=== PATIENT | female | born 1935 | race Caucasian/White ===

== ENCOUNTER 2017-03-02 09:06 | Inpatient (IN) | payer OTHER, MEDICARE ==
[2017-03-02] VITALS (7 sets, daily range): BP systolic 104–158; BP diastolic 53–104; PULSE 85–95; RESP 18–26; TEMP 97.6–97.8; O2SAT 77–97
[~2017-03-02] VITALS: Ht 165.1 cm; Wt 94.3 kg
[~2017-03-02 09:06] MED LIST: ALBU8I INH; ASPI1TAB7 PO; ATOR80TA41 PO; DUONI NEB; FERR324T4 PO; LISI20 PO; METF500 PO; METO25 PO; PROT40TA PO; TIOT18I INH; Z.0.OXYGENDME NC
[2017-03-02] MEDS ORDERED: RESP: ALBUTEROL 2.5 MG/IPRATROPIUM 0.5 MG NEB (SCH) ONE (09:14)
[2017-03-02] MEDS ORDERED: methylPREDNISolone SOD SUCC 125 MG/2 ML VIAL IVP ONE (09:15)
--- NOTE | 2017-03-02 09:26 | PD ---
HPI Chief Complaint: Respiratory Distress Time Seen by Provider: 09:14 Travel History International Travel<30 days: No Contact w/Intl Traveler<30days: No Traveled to known affect area: No History of Present Illness HPI 81-year-old female complains of shortness of breath. Patient states that the symptoms started yesterday. Patient has history of COPD on home O2. She denies any headache. Patient denies any chest pain. Patient denies abdominal pain. Patient denies any nausea vomiting diarrhea. Patient denies any fever chills. Patient denies any coughing congestion. Patient states that the shortness of breath started yesterday and got progressively worse since then. Patient states that she has a nebulizer machine and medication at home however however patient has not been using it recently. Patient has history of hypertension, diabetes, hyperlipidemia. Patient has history of CAD status post stents placement. Patient is on Eliquis and aspirin. PFSH Past Medical History Hx Anticoagulant Therapy: Yes (ELIQUIS) Arthritis: Yes Asthma: No Blood Disorders: No Heart Rhythm Problems: No Cancer: No Cardiac Catheterization: Yes Cardiovascular Problems: Yes High Cholesterol: No Chest Pain: Yes Congestive Heart Failure: No COPD: Yes Diabetes: Yes Endocrine: No Genitourinary: No Hypertension: Yes Immune Disorder: Yes (polymyalgia) Musculoskeletal: Yes (arthritis) Neurologic: No Psychiatric: No Reproductive: No Respiratory: Yes (COPD CONTINUOUS O2 ) Sleep Apnea: No Thyroid Disease: No ?: Not Menopausal: Yes : 4 Para: 4 Miscarriage: 0 : 0 Past Surgical History Abdominal Surgery: Yes (appendectomy, GB removal) AICD: No Appendectomy: Yes Arteriovenous Shunt: No Body Medical Devices: cardiac stent Cardiac Surgery: Yes (x1 stent) Ear Surgery: No Endocrine Surgery: No Eye Surgery: Yes (ana cataract removal) Genitourinary Surgery: No Gynecologic Surgery: No Insulin Pump: No Joint Replacement: No Oral Surgery: Yes (tonsillectomy) Pacemaker: No Thoracic Surgery: No Other Surgery: Yes Social History Alcohol Use: No Tobacco Use: No Substance Use: No Allergies-Medications (Allergen,Severity, Reaction): Coded Allergies: Penicillin (Verified Adverse Reaction, Intermediate, Rash, 01/15/16) Reported Meds & Prescriptions Reported Meds & Active Scripts Active Reported Spiriva Handihaler (Tiotropium Inh) 18 Mcg Cap 18 Mcg INH DAILY 1 capsule = 18 mcg Levemir Flextouch Pen Inj (Insulin Detemir) 300 unit/3 ML Pen 15 Units SQ HS Protonix (Pantoprazole Sodium) 40 Mg Tab 40 Mg PO DAILY Metoprolol Tartrate 25 Mg Tab 25 Mg PO BID Metformin (Metformin HCl) 500 Mg Tab 500 Mg PO BIDPC With meals Lisinopril 20 Mg Tab 20 Mg PO BID Aspirin 81 Mg Chew 81 Mg CHEW BID Review of Systems General / Constitutional: No: Fever Eyes: No: Visual changes HENT: No: Headaches Cardiovascular: No: Chest Pain or Discomfort Respiratory: Positive: Shortness of Breath Gastrointestinal: No: Abdominal Pain Genitourinary: No: Dysuria Musculoskeletal: No: Pain Skin: No Rash Neurologic: No: Weakness Psychiatric: No: Depression Endocrine: No: Polydipsia Hematologic/Lymphatic: No: Easy Bruising Physical Exam Narrative GENERAL: Well-nourished, well-developed patient. SKIN: Focused skin assessment warm/dry. HEAD: Normocephalic. EYES: No scleral icterus. No injection or drainage. NECK: Supple, trachea midline. No JVD or lymphadenopathy. CARDIOVASCULAR: Regular rate and rhythm without murmurs, gallops, or rubs. RESPIRATORY: Breath sounds equal bilaterally. No accessory muscle use. Patient has mild expiratory wheezes bilaterally. Few rhonchi at the bases. GASTROINTESTINAL: Abdomen soft, non-tender, nondistended. MUSCULOSKELETAL: No cyanosis, or edema. BACK: Nontender without obvious deformity. No CVA tenderness. Neurologic exam normal. Data Data Last Documented VS Vital Signs Date Time Temp Pulse Resp B/P Pulse Ox O2 Delivery O2 Flow Rate FiO2 03/02/17 09:52 85 24 158/68 93 Nasal Cannula 4 03/02/17 09:07 97.6 Orders Albuterol-Ipratropium Neb (Duoneb Neb) (03/02/17 09:14) Complete Blood Count With Diff (03/02/17 09:14) Comprehensive Metabolic Panel (03/02/17 09:14) B-Type Natriuretic Peptide (03/02/17 09:14) Act Partial Throm Time (Ptt) (03/02/17 09:14) Prothrombin Time / Inr (Pt) (03/02/17 09:14) Urinalysis - C+S If Indicated (03/02/17 09:14) Influenzae A/B Antigen (03/02/17 09:14) Iv Access Insert/Monitor (03/02/17 09:14) Electrocardiogram (03/02/17 09:14) Ecg Monitoring (03/02/17 09:14) Oximetry (03/02/17 09:14) Oxygen Administration (03/02/17 09:14) Chest, Single Ap (03/02/17 09:14) Methylprednisolone So Succ Inj (Solumedr (03/02/17 09:15) Albuterol-Ipratropium Neb (Duoneb Neb) (03/02/17 09:15) Labs Laboratory Tests Test 03/02/17 09:20 White Blood Count 10.7 TH/MM3 Red Blood Count 3.90 MIL/MM3 Hemoglobin 10.0 GM/DL Hematocrit 30.7 % Mean Corpuscular Volume 78.8 FL Mean Corpuscular Hemoglobin 25.6 PG Mean Corpuscular Hemoglobin 32.5 % Concent Red Cell Distribution Width 15.3 % Platelet Count 296 TH/MM3 Mean Platelet Volume 7.6 FL Neutrophils (%) (Auto) 75.3 % Lymphocytes (%) (Auto) 11.9 % Monocytes (%) (Auto) 10.9 % Eosinophils (%) (Auto) 1.3 % Basophils (%) (Auto) 0.6 % Neutrophils # (Auto) 8.1 TH/MM3 Lymphocytes # (Auto) 1.3 TH/MM3 Monocytes # (Auto) 1.2 TH/MM3 Eosinophils # (Auto) 0.1 TH/MM3 Basophils # (Auto) 0.1 TH/MM3 CBC Comment DIFF FINAL Differential Comment Prothrombin Time 12.3 SEC Prothromb Time International 1.1 RATIO Ratio Activated Partial 30.8 SEC Thromboplast Time Sodium Level 139 MEQ/L Potassium Level 3.8 MEQ/L Chloride Level 102 MEQ/L Carbon Dioxide Level 28.6 MEQ/L Anion Gap 8 MEQ/L Blood Urea Nitrogen 12 MG/DL Creatinine 0.76 MG/DL Estimat Glomerular Filtration 73 ML/MIN Rate Random Glucose 197 MG/DL Calcium Level 8.7 MG/DL Total Bilirubin 0.7 MG/DL Aspartate Amino Transf 13 U/L (AST/SGOT) Alanine Aminotransferase 21 U/L (ALT/SGPT) Alkaline Phosphatase 77 U/L B-Type Natriuretic Peptide 399 PG/ML Total Protein 6.9 GM/DL Albumin 2.6 GM/DL [facility] Medical Decision Making Medical Screen Exam Complete: Yes Emergency Medical Condition: Yes Interpretation(s) Last Impressions Chest X-Ray 03/02/17 0914 Signed Impressions: Service Date/Time: Thursday, March 02, 2017 09:22 - CONCLUSION: Mild opacity at the lung bases could represent atelectasis or chronic interstitial lung disease. Otherwise, no acute finding is identified. Brian York MD 10:43 AM. CBC hemoglobin 10.0 hematocrit 30.7. MCV 78.8. CMP within normal limit. BNP 399. Patient has history of elevated BNP in the past. Differential Diagnosis Differential diagnosis including acute exacerbation of COPD, bronchitis, pneumonia, PE, pneumothorax. Narrative Course 81-year-old female with shortness of breath. History of COPD. Albuterol with Atrovent unit dose treatment 3. Solu-Medrol 125 mg IV. 10:51 AM. Reexamination patient still complains of shortness of breath although examination the lungs much improved. Levaquin 750 mg IV given. Diagnosis Primary Impression: COPD with acute exacerbation Admitting Information Admitting Physician Requests: Observation Pato Nicole MD Mar 02, 2017 09:26
[2017-03-02] MEDS ORDERED: METF500T PO (09:29)
[2017-03-02] MEDS ORDERED: INSU1INJ5 SQ (09:29)
[2017-03-02] MEDS ORDERED: ASPI81CH CHEW (09:29)
[2017-03-02] MEDS ORDERED: PROT40TA PO (09:29)
[2017-03-02] MEDS ORDERED: LISI-515 PO (09:29)
[2017-03-02] MEDS ORDERED: METO25TA3 PO (09:29)
[2017-03-02] MEDS ORDERED: SPIRCAP INH (09:29)
[2017-03-02 09:30] LABS: AUTOMATED NEUTROPHIL # 8.1 TH/MM3 (1.8-7.7); BASOPHIL # 0.1 TH/MM3 (0-0.2); BASOPHIL % 0.6 % (0.0-2.0); EOSINOPHIL # 0.1 TH/MM3 (0-0.4); EOSINOPHIL % 1.3 % (0.0-4.0); HEMATOCRIT 30.7 % (35.0-46.0); HEMO FLAGS DIFF FINAL; LYMPH % 11.9 % (9.0-44.0); LYMPHOCYTE # 1.3 TH/MM3 (1.0-4.8); MEAN CELL VOLUME 78.8 FL (80.0-100.0); MEAN CORPUSCULAR HEMOGLOBIN 25.6 PG (27.0-34.0); MEAN CORPUSCULAR HGB CONC 32.5 % (32.0-36.0); MONO % 10.9 % (0.0-8.0); NEUT % 75.3 % (16.0-70.0); PLATELET COUNT 296 TH/MM3 (150-450); RED CELL DISTRIBUTION WIDTH 15.3 % (11.6-17.2); WHITE BLOOD COUNT 10.7 TH/MM3 (4.0-11.0)
[2017-03-02 09:42] LABS: APTT (PATIENT) 30.8 SEC (24.3-30.1); INTERNATIONAL NORMALIZED RATIO 1.1 RATIO; PROTHROMBIN TIME - PATIENT 12.3 SEC (9.8-11.6)
[2017-03-02] MEDS: RESP: ALBUTEROL 2.5 MG/IPRATROPIUM 0.5 MG NEB (SCH) INH ×2 (09:45→09:46)
[2017-03-02 10:02] LABS: ANION GAP 8 MEQ/L (5-15); AST (GOT) 13 U/L (15-37); BICARBONATE 28.6 MEQ/L (21.0-32.0); BLOOD UREA NITROGEN 12 MG/DL (7-18); CHLORIDE 102 MEQ/L (98-107); GLOMERULAR FILTRATION RATE 73 ML/MIN (>89); POTASSIUM 3.8 MEQ/L (3.5-5.1); SODIUM (NA) 139 MEQ/L (136-145)
--- NOTE | 2017-03-02 10:02 | RADRPT ---
EXAM DATE/TIME: 03/02/2017 09:22 [facility] COMPARISON: CHEST PA & LAT, December 05, 2015, 8:13. CHEST SINGLE AP, December 03, 2015, 8:09. INDICATIONS : Short of Breath MEDICAL HISTORY : Chronic obstructive pulmonary disease. Myocardial infarction. SURGICAL HISTORY : Discectomy, lumbar. Appendectomy. ENCOUNTER: Initial ACUITY: 1 day PAIN SCORE: 0/10 LOCATION: Bilateral chest FINDINGS: Portable AP view of the chest demonstrates a normal-sized cardiac silhouette with calcification of th e aorta. There is persistent interstitial prominence at the lung bases bilaterally. No effusion, cons olidation, or pneumothorax is identified. Bones and soft tissues demonstrate no acute finding. CONCLUSION: Mild opacity at the lung bases could represent atelectasis or chronic interstitial lung disease. Othe rwise, no acute finding is identified. Brian York MD on March 02, 2017 at 9:59 Board Certified Radiologist. This report was verified electronically.
[2017-03-02 10:03] LABS: ALT (GPT) 21 U/L (10-53)
[2017-03-02 10:05] LABS: ALKALINE PHOSPHATASE 77 U/L (45-117); TOTAL BILIRUBIN ADULT 0.7 MG/DL (0.2-1.0)
[2017-03-02] MEDS ORDERED: METF1000 PO (11:06)
[2017-03-02] MEDS ORDERED: LEVOFLOXACIN 750 MG PREMIX INJ 150 ML IV ONE (11:30)
[2017-03-02] MEDS ORDERED: GLUCAGON 1 MG/ML VIAL OTHER PRN ×2 (11:30→16:45)
[2017-03-02] MEDS ORDERED: DEXTROSE 50% IN WATER 50 ML VIAL(D50) IV PRN (11:30)
[2017-03-02] MEDS ORDERED: RESP: ALBUTEROL 1.25 MG/3 ML NEB (PRN) NEB (11:30)
[2017-03-02] MEDS: RESP: ALBUTEROL 2.5 MG/IPRATROPIUM 0.5 MG NEB (SCH) NEB ×4 (12:14→23:57)
--- NOTE | 2017-03-02 12:23 | HHI.HP ---
[facility] Service [facility] ([place], [place])ists Primary Care Physician Juliet Veliz MD Admission Diagnosis COPD acute exacerbation Diagnoses: (1) COPD with acute exacerbation Diagnosis: Principal Chief Complaint: shortness of breath Travel History International Travel<30 Days: No Contact w/Intl Traveler <30 Da: No Traveled to Known Affected Are: No History of Present Illness patient is a 81 y/o female with history of COPD -oxygen dependent, who presented to ER with worsening sob. she says that she's had sob for the past couple of days. this is associated with some dry cough. she denies any fever, chills or night sweats. she has a nebulizer at home but she says that she didn' t use it last night. at the time of my evaluation her pulse-ox dropped to 87 while she was trying to sit up on the bed.she says that her sob has slightly improved. Review of Systems Constitutional: DENIES: Fever, Weight loss, Chills, Night Sweats Eyes: DENIES: Blurred vision, Diplopia, Vision loss, Double Vision Ears, nose, mouth, throat: DENIES: Tinnitus, Vertigo, Throat pain, Epistaxis Respiratory: COMPLAINS OF: Cough, Shortness of breath, DENIES: Apneas, Snoring , Wheezing, Hemoptysis, Sputum production Cardiovascular: DENIES: Chest pain, Palpitations, Syncope, Dyspnea on Exertion , PND, Lower Extremity Edema, Orthopnea, Claudication Gastrointestinal: DENIES: Abdominal pain, Black stools, Bloody stools, Constipation, Diarrhea, Nausea, Vomiting, Difficulty Swallowing, Anorexia Genitourinary: DENIES: Urinary frequency, Urgency, Hematuria, Dysuria Musculoskeletal: DENIES: Joint pain, Muscle aches, Stiffness, Joint Swelling Integumentary: DENIES: Rash Neurologic: DENIES: Abnormal gait, Headache, Localized weakness, Paresthesias, Seizures, Speech Problems, Tremor, Poor Balance Psychiatric: DENIES: Anxiety, Confusion, Mood changes, Depression, Hallucinations, Agitation, Suicidal Ideation, Homicidal Ideation, Delusions Past Family Social History Past Medical History COPD hypertension diabetes mellitus Past Surgical History appendectomy back surgery Reported Medications Spiriva Handihaler (Tiotropium Inh) 18 Mcg Cap 18 Mcg INH DAILY 1 capsule = 18 mcg Levemir Flextouch Pen Inj (Insulin Detemir) 300 unit/3 ML Pen 15 Units SQ HS Protonix (Pantoprazole Sodium) 40 Mg Tab 40 Mg PO DAILY Metoprolol Tartrate 25 Mg Tab 25 Mg PO BID Metformin (Metformin HCl) 500 Mg Tab 500 Mg PO BIDPC With meals Lisinopril 20 Mg Tab 20 Mg PO BID Aspirin 81 Mg Chew 81 Mg CHEW BID Allergies: Coded Allergies: Penicillin (Verified Adverse Reaction, Intermediate, Rash, 01/15/16) Active Ordered Medications Current Medications Albuterol/ Ipratropium (Duoneb Neb) 3 ampule STK-MED ONCE .ROUTE ; Start at 09:14; Stop 03/02/17 at 09:15; Status DC Methylprednisolone Sodium Succinate (SoluMEDROL INJ) 125 mg ONCE ONCE IVP Last administered on 03/02/17 09:39; Start 03/02/17 at 09:15; Stop 03/02/17 at 09: 22; Status DC Albuterol/ Ipratropium (Duoneb Neb) 1 ampule Q15M INH Last administered on 09:46; Start 03/02/17 at 09:15; Stop 03/02/17 at 09:51; Status DC Dextrose (D50w (Vial) Inj) 50 ml UNSCH PRN IV HYPOGLYCEMIA-SEE COMMENTS; Start 03/02/17 at 11:30 Glucagon (Glucagon Inj) 1 mg UNSCH PRN OTHER HYPOGLYCEMIA-SEE COMMENTS; Start 03/02/17 at 11:30 Insulin Aspart (NovoLOG SUPPLEMENTAL SCALE) 1 ACHS SLIDING SCALE SQ ; Start 03/02/17 at 16:00 Albuterol/ Ipratropium (Duoneb Neb) 1 ampule Q4HR NEB NEB ; Start 03/02/17 at 12 :00 Albuterol Sulfate 1.25 mg 1.25 mg Q2HR NEB PRN NEB SHORTNESS OF BREATH; Start 03/02/17 at 11:30 Levofloxacin/ Dextrose (Levaquin 750 Mg Premix Inj) 150 ml @ 100 mls/hr ONCE ONCE IV ; Start 03/02/17 at 11:30; Stop 03/02/17 at 12:59 Family History not relevant to this presentation. Social History quit smoking years ago.doesn't drink. Physical Exam Vital Signs Vital Signs Date Time Temp Pulse Resp B/P Pulse Ox O2 Delivery O2 Flow Rate FiO2 03/02/17 09:52 85 24 158/68 93 Nasal Cannula 4 03/02/17 09:19 76 18 98 Non-Rebreather 03/02/17 09:18 18 97 Room Air 03/02/17 09:18 100 Non-Rebreather 14 03/02/17 09:07 97.6 85 26 129/104 77 Physical Exam GENERAL: with some sob. SKIN: No rashes, ecchymoses or lesions. Cool and dry. HEAD: Atraumatic. Normocephalic. No temporal or scalp tenderness. EYES: Pupils equal round and reactive. Extraocular motions intact. No scleral icterus. No injection or drainage. ENT: Nose without bleeding, purulent drainage or septal hematoma. Throat without erythema, tonsillar hypertrophy or exudate. Uvula midline. Airway patent. NECK: Trachea midline. No JVD or lymphadenopathy. Supple, nontender, no meningeal signs. CARDIOVASCULAR: Regular rate and rhythm without murmurs, gallops, or rubs. RESPIRATORY: diminished air entry in bases with mild bilateral wheezing. GASTROINTESTINAL: Abdomen soft, non-tender, nondistended. No hepato-splenomegaly , or palpable masses. No guarding. MUSCULOSKELETAL: Extremities without clubbing, cyanosis, or edema. No joint tenderness, effusion, or edema noted. No calf tenderness. Negative Homans sign bilaterally. NEUROLOGICAL: Awake and alert. Cranial nerves II through XII intact. Motor and sensory grossly within normal limits. Five out of 5 muscle strength in all muscle groups. Normal speech. Laboratory Laboratory Tests Test 03/02/17 09:20 White Blood Count 10.7 Red Blood Count 3.90 Hemoglobin 10.0 Hematocrit 30.7 Mean Corpuscular Volume 78.8 Mean Corpuscular Hemoglobin 25.6 Mean Corpuscular Hemoglobin 32.5 Concent Red Cell Distribution Width 15.3 Platelet Count 296 Mean Platelet Volume 7.6 Neutrophils (%) (Auto) 75.3 Lymphocytes (%) (Auto) 11.9 Monocytes (%) (Auto) 10.9 Eosinophils (%) (Auto) 1.3 Basophils (%) (Auto) 0.6 Neutrophils # (Auto) 8.1 Lymphocytes # (Auto) 1.3 Monocytes # (Auto) 1.2 Eosinophils # (Auto) 0.1 Basophils # (Auto) 0.1 CBC Comment DIFF FINAL Differential Comment Prothrombin Time 12.3 Prothromb Time International 1.1 Ratio Activated Partial 30.8 Thromboplast Time Sodium Level 139 Potassium Level 3.8 Chloride Level 102 Carbon Dioxide Level 28.6 Anion Gap 8 Blood Urea Nitrogen 12 Creatinine 0.76 Estimat Glomerular Filtration 73 Rate Random Glucose 197 Calcium Level 8.7 Total Bilirubin 0.7 Aspartate Amino Transf 13 (AST/SGOT) Alanine Aminotransferase 21 (ALT/SGPT) Alkaline Phosphatase 77 B-Type Natriuretic Peptide 399 Total Protein 6.9 Albumin 2.6 Date/Time Procedure Status Source Growth 03/02/17 09:16 Influenza Types A,B Antigen (CINTHIA) - Final Complete Nasal Washing NEGATIVE FOR FLU A AND B ANTIGEN.... Result Diagram: 03/02/1791903/02/17919 Imaging Last Impressions Chest X-Ray 03/02/17913 Signed Impressions: Service Date/Time: Thursday, March 02, 2017 09:22 - CONCLUSION: Mild opacity at the lung bases could represent atelectasis or chronic interstitial lung disease. Otherwise, no acute finding is identified. Brian York MD EKG; sinus rhythm with no acute ST-T changes. Assessment and Plan Assessment and Plan A/P - acute hypoxemic respiratory failure/ acute COPD exacerbation keep on oxygen to keep O2 sat >90%- start neb treatment; scheduled and prn- continue IV steroids and antibiotic. patient is oxygen-dependent. -diabetes mellitus; resume long-acting insulin- start accu-check with SSI -hypertension; resume lisinopril- hold BB for now due to COPD exacerbation -anemia- chronic- will monitor . -DVT prophylaxis with SCD's Discussed Condition With ER physician and the patient. Physician Certification 2 Midnight Certification Type: Admission for Inpatient Services Order for Inpatient Services The services are ordered in accordance with Medicare regulations or non- Medicare payer requirements, as applicable. In the case of services not specified as inpatient-only, they are appropriately provided as inpatient services in accordance with the 2-midnight benchmark. Estimated LOS (days): 2 days is the estimated time the patient will need to remain in the hospital, assuming treatment plan goals are met and no additional complications. Post-Hospital Plan: Home Jasbir Moffett MD Mar 02, 2017 12:23
[2017-03-02] MEDS: methylPREDNISolone SOD SUCC 40 MG/1 ML VIAL IV PUSH SCH ×2 (14:49→20:50)
[2017-03-02] MEDS ORDERED: INSULIN ASPART SUPPLEMENTAL SCALE SQ SCH (16:00)
[2017-03-02] MEDS ORDERED: DEXTROSE 50% IN WATER 50 ML VIAL(D50) IV PUSH PRN (16:45)
--- NOTE | 2017-03-02 17:24 | EKG ---
Date Performed: 03/02/2017 Time Performed: 09:15:24 PTAGE: 81 years EKG: Sinus rhythm WITH OCCASIONAL SUPRAVENTRICULAR PREMATURE COMPLEXES POSSIBLE ANTERIOR MYOCARDIAL INFARCTION ABNORMA L ECG Since PREVIOUS TRACING , no significant change noted PREVIOUS TRACIN01/15/2016 17.35.48 DOCTOR: Al Sotelo Interpretating Date/Time 03/02/2017 17:22:16
[2017-03-02] MEDS: PANTOPRAZOLE SOD 40 MG DELAYED RELEASE TAB PO SCH (20:49)
[2017-03-02] MEDS: ASPIRIN 81 MG CHEW TAB CHEW SCH (20:50)
[2017-03-02] MEDS: MEDIUM DOSE INSULIN NOVOLOG SUPPLEMENTAL SCALE SQ SCH (20:51)
[2017-03-02] MEDS: INSULIN DETEMIR 100 UNITS/ML VIAL SQ SCH (20:52)
[2017-03-02] MEDS: LISINOPRIL 20 MG TAB PO SCH (20:53)
[2017-03-03] VITALS (10 sets, daily range): BP systolic 115–189; BP diastolic 59–91; PULSE 87–160; RESP 18–20; TEMP 97.5–98.3; O2SAT 91–98
[2017-03-03] MEDS: RESP: ALBUTEROL 2.5 MG/IPRATROPIUM 0.5 MG NEB (SCH) NEB ×5 (04:00→20:10)
[2017-03-03] MEDS: methylPREDNISolone SOD SUCC 40 MG/1 ML VIAL IV PUSH SCH ×2 (05:22→21:44)
[2017-03-03] MEDS: MEDIUM DOSE INSULIN NOVOLOG SUPPLEMENTAL SCALE SQ SCH ×4 (05:23→21:00)
[2017-03-03] MEDS: LISINOPRIL 20 MG TAB PO SCH ×2 (08:08→21:43)
[2017-03-03] MEDS: PANTOPRAZOLE SOD 40 MG DELAYED RELEASE TAB PO SCH ×2 (08:09→21:43)
[2017-03-03] MEDS: ASPIRIN 81 MG CHEW TAB CHEW SCH ×2 (08:09→21:43)
[2017-03-03] MEDS: LEVOFLOXACIN 500 MG PREMIX INJ 100 ML IV SCH (08:10)
[2017-03-03] MEDS: TIOTROPIUM BROMIDE 18 MCG INH INH SCH (09:15)
--- NOTE | 2017-03-03 09:31 | HHI.PR ---
Subjective Remarks feeling better today. sob has improved. blood sugar trend noted. d/w the RN and no acute issues over night. Objective Vitals Vital Signs Date Time Temp Pulse Resp B/P Pulse Ox O2 Delivery O2 Flow Rate FiO2 03/03/17 08:29 93 Nasal Cannula 3.00 03/03/17 08:19 97.9 89 20 147/73 96 03/03/17 04:46 98.0 100 19 115/59 92 03/03/17 00:23 98.3 101 18 148/65 91 03/02/17 20:24 92 Nasal Cannula 3.00 03/02/17 19:56 97.8 95 22 104/55 93 03/02/17 12:30 93 Nasal Cannula 4.00 03/02/17 12:18 89 24 132/53 93 Nasal Cannula 1 03/02/17 09:52 85 24 158/68 93 Nasal Cannula 4 Result Diagram: 03/02/1720 03/02/17 09 Imaging Last Impressions Chest X-Ray 03/02/17913 Signed Impressions: Service Date/Time: Thursday, March 02, 2017 09:22 - CONCLUSION: Mild opacity at the lung bases could represent atelectasis or chronic interstitial lung disease. Otherwise, no acute finding is identified. Brian York MD Objective Remarks GENERAL: This is a well-nourished, well-developed patient, in no apparent distress. CARDIOVASCULAR: Regular rate and regular rhythm without murmurs, gallops, or rubs. RESPIRATORY: better air entry bilaterally with no wheezing. GASTROINTESTINAL: Abdomen soft, non-tender, nondistended. Normal, active bowel sounds MUSCULOSKELETAL: Extremities without clubbing, cyanosis, or edema. NEURO: Alert & Oriented x4 to person, place, time, situation. Moves all ext x4 Procedures none Medications and IVs Current Medications Albuterol/ Ipratropium (Duoneb Neb) 3 ampule STK-MED ONCE .ROUTE ; Start at 09:14; Stop 03/02/17 at 09:15; Status DC Methylprednisolone Sodium Succinate (SoluMEDROL INJ) 125 mg ONCE ONCE IVP Last administered on 03/02/17t 09:39; Start 03/02/17 at 09:15; Stop 03/02/17 at 09: 22; Status DC Albuterol/ Ipratropium (Duoneb Neb) 1 ampule Q15M INH Last administered on 09:46; Start 03/02/17 at 09:15; Stop 03/02/17 at 09:51; Status DC Dextrose (D50w (Vial) Inj) 50 ml UNSCH PRN IV HYPOGLYCEMIA-SEE COMMENTS; Start 03/02/17 at 11:30; Stop 03/02/17 at 16:47; Status DC Glucagon (Glucagon Inj) 1 mg UNSCH PRN OTHER HYPOGLYCEMIA-SEE COMMENTS; Start 03/02/17 at 11:30; Stop 03/02/17 at 16:47; Status DC Insulin Aspart (NovoLOG SUPPLEMENTAL SCALE) 1 ACHS SLIDING SCALE SQ Last administered on 03/02/17 15:57; Start 03/02/17 at 16:00; Stop 03/02/17 at 16:47; Status DC Albuterol/ Ipratropium (Duoneb Neb) 1 ampule Q4HR NEB NEB Last administered on 03/03/17 08:28; Start 03/02/17 at 12:00 Albuterol Sulfate 1.25 mg 1.25 mg Q2HR NEB PRN NEB SHORTNESS OF BREATH; Start 03/02/17 at 11:30 Levofloxacin/ Dextrose (Levaquin 750 Mg Premix Inj) 150 ml @ 100 mls/hr ONCE ONCE IV Last administered on 03/02/17 12:18; Start 03/02/17 at 11:30; Stop at 12:59; Status DC Methylprednisolone Sodium Succinate 40 mg 40 mg Q8HR IV PUSH Last administered on 03/03/17 05:22; Start 03/02/17 at 14:00 Levofloxacin/ Dextrose (Levaquin 500 Mg Premix Inj) 100 ml @ 100 mls/hr Q24H IV Last administered on 03/03/17 08:10; Start 03/03/17 at 09:00 Aspirin (Aspirin Chew) 81 mg BID CHEW Last administered on 03/03/17 08:09; Start 03/02/17 at 21:00 Lisinopril (Prinivil) 20 mg BID PO Last administered on 03/03/17 08:08; Start 03/02/17 at 21:00 Pantoprazole Sodium (Protonix) 40 mg Q12HR PO Last administered on 03/03/17 08: 09; Start 03/02/17 at 21:00 Tiotropium [place] (Spiriva Inh) 18 mcg DAILY INH Last administered on 09:15; Start 03/03/17 at 09:00 Insulin Detemir (Levemir Inj) 15 units HS SQ Last administered on 03/02/17 20: 52; Start 03/02/17 at 21:00 Influenza Virus Vaccine (Flu (Quadrivalent) Vaccine Inj) 0.5 ml ONCE ONCE IM ; Start 03/03/17 at 10:00; Stop 03/03/17 at 10:01; Status Cancel Dextrose (D50w (Vial) Inj) 50 ml UNSCH PRN IV PUSH HYPOGLYCEMIA - SEE COMMENTS ; Start 03/02/17 at 16:45 Glucagon (Glucagon Inj) 1 mg UNSCH PRN OTHER HYPOGLYCEMIA-SEE COMMENTS; Start 03/02/17 at 16:45 Insulin Aspart (NovoLOG SUPPLEMENTAL SCALE) 1 ACHS SLIDING SCALE SQ Last administered on 03/03/17 05:23; Start 03/02/17 at 21:00 A/P Assessment and Plan A/P - acute hypoxemic respiratory failure/ acute COPD exacerbation keep on oxygen to keep O2 sat >90%- continue neb treatment; scheduled and prn - taper down IV steroids and continue antibiotic. patient is oxygen-dependent. -diabetes mellitus; resumed long-acting insulin- continue accu-check with SSI blood sugar levels expected to improve as steroids being tapered down. -hypertension; resumed lisinopril- hold BB for now due to COPD exacerbation -anemia- chronic- f/u as outpatient. -DVT prophylaxis with SCD's Discharge Planning possible dc home tomorrow if continues to improve. Jasbir Moffett MD Mar 03, 2017 09:31
[2017-03-03] MEDS ORDERED: INFLUENZA VIRUS VACCINE (QUADRIVALENT) 0.5 ML SYR IM ONE (10:00)
[2017-03-03 15:31] LABS: BLOOD, URINE NEG (NEG); COMMENT (UR) CULT NOT INDICATED; CULTURE IF INDICATED CULT NOT INDICATED; GLUCOSE,URINE 1000 mg/dL (NEG); HYALINE CAST, URINE 5 /lpf (RARE); KETONE, URINE NEG (NEG); NITRITE,URINE NEG (NEG); PH, URINE 5.5 (5.0-8.5); SQUAMOUS EPITHELIAL CELL URINE <1 /hpf (0-5); URINE COLOR YELLOW (YELLW/STRAW)
[2017-03-03] MEDS: INSULIN DETEMIR 100 UNITS/ML VIAL SQ SCH (21:50)
[2017-03-04] VITALS (15 sets, daily range): BP systolic 97–150; BP diastolic 48–79; PULSE 101–164; RESP 18–22; TEMP 97.4–98.7; O2SAT 95–98
[2017-03-04] MEDS: RESP: ALBUTEROL 2.5 MG/IPRATROPIUM 0.5 MG NEB (SCH) NEB ×6 (02:15→21:40)
[2017-03-04] MEDS: MEDIUM DOSE INSULIN NOVOLOG SUPPLEMENTAL SCALE SQ SCH ×4 (06:20→21:41)
--- NOTE | 2017-03-04 07:20 | HHI.PR ---
Subjective Remarks resting comfortably with no distress. sob has much improved. wants to go home today. d/w the RN . Objective Vitals Vital Signs Date Time Temp Pulse Resp B/P Pulse Ox O2 Delivery O2 Flow Rate FiO2 03/04/17 04:00 97.8 128 20 118/59 96 03/04/17 02:15 95 Nasal Cannula 3.00 03/04/17 00:00 98.7 116 20 123/65 97 03/03/17 21:40 113 20 98 03/03/17 20:00 98.2 160 18 145/67 96 03/03/17 16:49 95 Nasal Cannula 2.50 03/03/17 16:26 97.5 87 20 189/79 96 03/03/17 16:22 145/67 03/03/17 12:01 97.7 106 20 131/91 97 03/03/17 08:29 93 Nasal Cannula 3.00 03/03/17 08:19 97.9 89 20 147/73 96 I/O 03/03/17 03/03/17 03/03/17 03/04/17 03/04/17 03/04/17 06:59 14:59 22:59 06:59 14:59 22:59 Intake Total 720 ml Balance 720 ml Intake Oral 720 ml # Voids 8 # Bowel Movements 1 Result Diagram: 03/02/1791903/02/1720 Imaging Last Impressions Chest X-Ray 03/02/17913 Signed Impressions: Service Date/Time: Thursday, March 02, 2017 09:22 - CONCLUSION: Mild opacity at the lung bases could represent atelectasis or chronic interstitial lung disease. Otherwise, no acute finding is identified. Brian York MD Objective Remarks GENERAL: This is a well-nourished, well-developed patient, in no apparent distress. CARDIOVASCULAR: Regular rate and regular rhythm without murmurs, gallops, or rubs. RESPIRATORY: better air entry bilaterally with no wheezing. GASTROINTESTINAL: Abdomen soft, non-tender, nondistended. Normal, active bowel sounds MUSCULOSKELETAL: Extremities without clubbing, cyanosis, or edema. NEURO: Alert & Oriented x4 to person, place, time, situation. Moves all ext x4 Procedures none Medications and IVs Current Medications Albuterol/ Ipratropium (Duoneb Neb) 3 ampule STK-MED ONCE .ROUTE ; Start at 09:14; Stop 03/02/17 at 09:15; Status DC Methylprednisolone Sodium Succinate (SoluMEDROL INJ) 125 mg ONCE ONCE IVP Last administered on 03/02/17 09:39; Start 03/02/17 at 09:15; Stop 03/02/17 at 09: 22; Status DC Albuterol/ Ipratropium (Duoneb Neb) 1 ampule Q15M INH Last administered on 09:46; Start 03/02/17 at 09:15; Stop 03/02/17 at 09:51; Status DC Dextrose (D50w (Vial) Inj) 50 ml UNSCH PRN IV HYPOGLYCEMIA-SEE COMMENTS; Start 03/02/17 at 11:30; Stop 03/02/17 at 16:47; Status DC Glucagon (Glucagon Inj) 1 mg UNSCH PRN OTHER HYPOGLYCEMIA-SEE COMMENTS; Start 03/02/17 at 11:30; Stop 03/02/17 at 16:47; Status DC Insulin Aspart (NovoLOG SUPPLEMENTAL SCALE) 1 ACHS SLIDING SCALE SQ Last administered on 03/02/17 15:57; Start 03/02/17 at 16:00; Stop 03/02/17 at 16:47; Status DC Albuterol/ Ipratropium (Duoneb Neb) 1 ampule Q4HR NEB NEB Last administered on 03/04/17 02:15; Start 03/02/17 at 12:00 Albuterol Sulfate 1.25 mg 1.25 mg Q2HR NEB PRN NEB SHORTNESS OF BREATH; Start 03/02/17 at 11:30 Levofloxacin/ Dextrose (Levaquin 750 Mg Premix Inj) 150 ml @ 100 mls/hr ONCE ONCE IV Last administered on 03/02/17 12:18; Start 03/02/17 at 11:30; Stop at 12:59; Status DC Methylprednisolone Sodium Succinate 40 mg 40 mg Q8HR IV PUSH Last administered on 03/03/17 05:22; Start 03/02/17 at 14:00; Stop 03/03/17 at 09:28; Status DC Levofloxacin/ Dextrose (Levaquin 500 Mg Premix Inj) 100 ml @ 100 mls/hr Q24H IV Last administered on 03/03/17 08:10; Start 03/03/17 at 09:00 Aspirin (Aspirin Chew) 81 mg BID CHEW Last administered on 03/03/17 21:43; Start 03/02/17 at 21:00 Lisinopril (Prinivil) 20 mg BID PO Last administered on 03/03/17 21:43; Start 03/02/17 at 21:00 Pantoprazole Sodium (Protonix) 40 mg Q12HR PO Last administered on 03/03/17 21: 43; Start 03/02/17 at 21:00 Tiotropium [place] (Spiriva Inh) 18 mcg DAILY INH Last administered on 09:15; Start 03/03/17 at 09:00 Insulin Detemir (Levemir Inj) 15 units HS SQ Last administered on 03/03/17 21: 50; Start 03/02/17 at 21:00 Influenza Virus Vaccine (Flu (Quadrivalent) Vaccine Inj) 0.5 ml ONCE ONCE IM ; Start 03/03/17 at 10:00; Stop 03/03/17 at 10:01; Status Cancel Dextrose (D50w (Vial) Inj) 50 ml UNSCH PRN IV PUSH HYPOGLYCEMIA - SEE COMMENTS ; Start 03/02/17 at 16:45 Glucagon (Glucagon Inj) 1 mg UNSCH PRN OTHER HYPOGLYCEMIA-SEE COMMENTS; Start 03/02/17 at 16:45 Insulin Aspart (NovoLOG SUPPLEMENTAL SCALE) 1 ACHS SLIDING SCALE SQ Last administered on 03/04/17 06:20; Start 03/02/17 at 21:00 Methylprednisolone Sodium Succinate (SoluMEDROL INJ) 20 mg Q12HR IV PUSH Last administered on 03/03/17 21:44; Start 03/03/17 at 21:00 A/P Assessment and Plan A/P - acute hypoxemic respiratory failure/ acute COPD exacerbation keep on oxygen to keep O2 sat >90%- continue neb treatment- switch to po prednisone. patient is oxygen-dependent. -tachycardia- due to COPD/neb treatments- resume metoprolol and monitor. -diabetes mellitus; resumed long-acting insulin- continue accu-check with SSI blood sugar levels expected to improve as steroids being tapered down. -hypertension; resumed lisinopril- resume metoprolol. -anemia- chronic- f/u as outpatient. -DVT prophylaxis with SCD's Discharge Planning possible dc home later today if HR stable. see med list. f/u; pcp. d/w the patient and RN. Jasbir Moffett MD Mar 04, 2017 07:20
[2017-03-04] MEDS ORDERED: PRED5TAB PO (07:22)
[2017-03-04] MEDS ORDERED: LEVA500T20 PO (07:22)
--- NOTE | 2017-03-04 07:23 | HHI.DCPOC ---
Discharge Care Plan Diagnosis: (1) COPD with acute exacerbation Your Health Problems Are: Shortness of Breath Goals to Promote Your Health * To prevent worsening of your condition and complications * To maintain your health at the optimal level Directions to Meet Your Goals Take your medications as prescribed Follow your dietary instruction Follow activity as directed Keep your appointments as scheduled Take your immunizations and boosters as scheduled If your symptoms worsen call your PCP, if no PCP go to Urgent Care Center or Emergency Room Smoking is Dangerous to Your Health. Avoid second hand smoke Call the 24-hour hour crisis hotline for domestic abuse at Jasbir Moffett MD Mar 04, 2017 07:23
--- NOTE | 2017-03-04 07:23 | HHI.DS ---
Discharge Summary Admission Date Mar 02, 2017 at 12:10 Discharge Date: Mar 04, 2017 Admitting Diagnosis COPD acute exacerbation (1) COPD with acute exacerbation ICD Code: J44.1 Diagnosis: Principal Procedures none Brief History - From Admission patient is a 81 y/o female with history of COPD -oxygen dependent, who presented to ER with worsening sob. she says that she's had sob for the past couple of days. this is associated with some dry cough. she denies any fever, chills or night sweats. she has a nebulizer at home but she says that she didn' t use it last night. at the time of my evaluation her pulse-ox dropped to 87 while she was trying to sit up on the bed.she says that her sob has slightly improved. CBC/BMP: 03/02/17 0920 03/02/17 0920 Significant Findings Laboratory Tests Test 03/02/17 03/03/17 09:20 14:15 Red Blood Count 3.90 MIL/MM3 (4.00-5.30) Hemoglobin 10.0 GM/DL (11.6-15.3) Hematocrit 30.7 % (35.0-46.0) Mean Corpuscular Volume 78.8 FL (80.0-100.0) Mean Corpuscular Hemoglobin 25.6 PG (27.0-34.0) Neutrophils (%) (Auto) 75.3 % (16.0-70.0) Monocytes (%) (Auto) 10.9 % (0.0-8.0) Neutrophils # (Auto) 8.1 TH/MM3 (1.8-7.7) Monocytes # (Auto) 1.2 TH/MM3 (0-0.9) Prothrombin Time 12.3 SEC (9.8-11.6) Activated Partial 30.8 SEC Thromboplast Time (24.3-30.1) Estimat Glomerular Filtration 73 ML/MIN (>89) Rate Random Glucose 197 MG/DL (74-106) Aspartate Amino Transf 13 U/L (15-37) (AST/SGOT) B-Type Natriuretic Peptide 399 PG/ML (0-100) Albumin 2.6 GM/DL (3.4-5.0) Urine Protein 30 mg/dL (NEG-TRACE) Urine Glucose (UA) 1000 mg/dL (NEG) Imaging Last Impressions Chest X-Ray 03/02/17 0914 Signed Impressions: Service Date/Time: Thursday, March 02, 2017 09:22 - CONCLUSION: Mild opacity at the lung bases could represent atelectasis or chronic interstitial lung disease. Otherwise, no acute finding is identified. Brian York MD PE at Discharge GENERAL: This is a well-nourished, well-developed patient, in no apparent distress. CARDIOVASCULAR: Regular rate and regular rhythm without murmurs, gallops, or rubs. RESPIRATORY: better air entry bilaterally with no wheezing. GASTROINTESTINAL: Abdomen soft, non-tender, nondistended. Normal, active bowel sounds MUSCULOSKELETAL: Extremities without clubbing, cyanosis, or edema. NEURO: Alert & Oriented x4 to person, place, time, situation. Moves all ext x4 Hospital Course - acute hypoxemic respiratory failure/ acute COPD exacerbation keep on oxygen to keep O2 sat >90%- continue neb treatment- switch to po prednisone. patient is oxygen-dependent. -tachycardia- due to COPD/neb treatments- resume metoprolol and monitor. -diabetes mellitus; resumed long-acting insulin- continue accu-check with SSI blood sugar levels expected to improve as steroids being tapered down. -hypertension; resumed lisinopril- resume metoprolol. -anemia- chronic- f/u as outpatient. -DVT prophylaxis with SCD's Pt Condition on Discharge: Good Discharge Disposition: Disch w/ Home Health Serv Discharge Time: <= 30 minutes Discharge Instructions DIET: Follow Instructions for: Heart Healthy Diet, Diabetic Diet Activities you can perform: Regular-No Restrictions Follow up Referrals: PCP Follow-up New Medications: Albuterol 18 GM Inh (Ventolin Hfa 18 GM Inh) 90 Mcg/Act Aer 2 PUFF INH Q6H PRN SHORTNESS OF BREATH #1 Ref 0 INHALER Levofloxacin (Levaquin) 500 Mg Tablet 500 MG PO DAILY copd Days 5 Ref 0 TAB Prednisone (Prednisone) 5 Mg Tab 5 MG PO DIRECTED 40 mg po daily for two days then 30 mg po daily for two days then 20 mg po daily for two days then 10 mg po daily for two days then 5 mg po daily for two days then stop. copd Days 10 Ref 0 TAB Continued Medications: Aspirin (Aspirin) 81 Mg Chew 81 MG CHEW BID Ref 0 TAB Insulin Detemir Inj (Levemir Flextouch Pen Inj) 300 unit/3 ML Pen 15 UNITS SQ HS Blood Sugar Management Ref 0 PEN Lisinopril (Lisinopril) 20 Mg Tab 20 MG PO BID #30 Ref 0 TAB Metformin (Metformin) 1,000 Mg Tab 1000 MG PO BID With meals Blood Sugar Management #60 Ref 0 TAB Metoprolol Tartrate (Metoprolol Tartrate) 25 Mg Tab 25 MG PO BID #60 Ref 0 TAB Pantoprazole (Protonix) 40 Mg Tab 40 MG PO Q12HR Reflux #30 Ref 0 TAB Tiotropium Inh (Spiriva Handihaler) 18 Mcg Cap 18 MCG INH DAILY 1 capsule = 18 mcg COPD #30 Ref 0 CAP Jasbir Moffett MD Mar 04, 2017 07:23
[2017-03-04] MEDS ORDERED: VENTAER INH (07:26)
[2017-03-04] MEDS: METOPROLOL TARTRATE 25 MG TAB PO SCH ×3 (07:51→21:35)
[2017-03-04] MEDS: LISINOPRIL 20 MG TAB PO SCH ×2 (07:51→21:35)
[2017-03-04] MEDS: ASPIRIN 81 MG CHEW TAB CHEW SCH ×2 (07:51→21:35)
[2017-03-04] MEDS: methylPREDNISolone SOD SUCC 40 MG/1 ML VIAL IV PUSH SCH ×2 (07:51→21:35)
[2017-03-04] MEDS: PANTOPRAZOLE SOD 40 MG DELAYED RELEASE TAB PO SCH ×2 (07:51→21:35)
[2017-03-04] MEDS: LEVOFLOXACIN 500 MG PREMIX INJ 100 ML IV SCH (07:52)
[2017-03-04] MEDS: TIOTROPIUM BROMIDE 18 MCG INH INH SCH (07:52)
--- NOTE | 2017-03-04 08:10 | HHI.FF ---
Face to Face Verification Diagnosis: (1) COPD with acute exacerbation Home Health Nursing Order: Medical education Signs/symptoms of disease process Medication education-adverse effect Nursing assessment with vital signs I have seen patient Patricia Hughes on 03/04/17. My clinical findings support the need for the requested home health care services because: Patient has SOB I certify that my clinical findings support that this patient is homebound because: Hx COPD- exertion dyspnea/weakness Jasbir Moffett MD Mar 04, 2017 08:10
[2017-03-04] MEDS ORDERED: METOPROLOL TARTRATE 25 MG TAB PO SCH (09:00)
[2017-03-04] MEDS: DILTIAZEM INJ 125 MG in SODIUM CHLORIDE 0.9% INJ 100 ML IV SCH (17:04)
[2017-03-04] MEDS: INSULIN DETEMIR 100 UNITS/ML VIAL SQ SCH (21:41)
[2017-03-05] VITALS (8 sets, daily range): BP systolic 126–171; BP diastolic 60–80; PULSE 50–110; RESP 18–20; TEMP 97–98.1; O2SAT 93–99
[2017-03-05] MEDS: RESP: ALBUTEROL 2.5 MG/IPRATROPIUM 0.5 MG NEB (SCH) NEB ×6 (03:45→23:40)
[2017-03-05] MEDS: DILTIAZEM INJ 125 MG in SODIUM CHLORIDE 0.9% INJ 100 ML IV SCH (03:58)
[2017-03-05] MEDS: MEDIUM DOSE INSULIN NOVOLOG SUPPLEMENTAL SCALE SQ SCH ×4 (06:51→22:53)
--- NOTE | 2017-03-05 08:34 | EKG ---
Date Performed: 03/04/2017 Time Performed: 13:27:03 PTAGE: 81 years EKG: ATRIAL FIBRILLATION WITH RAPID VENTRICULAR RESPONSE WITH ABERRANT CONDUCTION OR VENTRICULAR PREMATURE COMPLEXES MINIMAL VOLTAGE CRITERIA FOR LVH, CONSIDER NORMAL VARIANT ANTEROSEPTAL MYOCARDIA L INFARCTION , PROBABLY OLD ABNORMAL ECG PREVIOUS TRACING : 03/02/2017 09.15 DOCTOR: Luis Manuel Hung Interpretating Date/Time 03/05/2017 08:29:39
[2017-03-05] MEDS: LISINOPRIL 20 MG TAB PO SCH ×2 (08:42→22:47)
[2017-03-05] MEDS: ASPIRIN 81 MG CHEW TAB CHEW SCH ×2 (08:43→22:48)
[2017-03-05] MEDS: METOPROLOL TARTRATE 25 MG TAB PO SCH ×3 (08:43→22:47)
[2017-03-05] MEDS: PANTOPRAZOLE SOD 40 MG DELAYED RELEASE TAB PO SCH ×2 (08:43→22:47)
[2017-03-05] MEDS: methylPREDNISolone SOD SUCC 40 MG/1 ML VIAL IV PUSH SCH ×2 (08:44→22:48)
[2017-03-05] MEDS: LEVOFLOXACIN 500 MG PREMIX INJ 100 ML IV SCH (08:44)
[2017-03-05] MEDS: TIOTROPIUM BROMIDE 18 MCG INH INH SCH (08:47)
--- NOTE | 2017-03-05 10:08 | HHI.PR ---
Subjective Remarks resting comfortably with no distress. no sob, chest pain or dizziness. HR is better- but on cardizem drip. d/w the RN at the bedside. Objective Vitals Vital Signs Date Time Temp Pulse Resp B/P Pulse Ox O2 Delivery O2 Flow Rate FiO2 03/05/17 08:00 98.1 84 20 171/78 98 150/80 03/05/17 04:00 101 03/05/17 04:00 97.4 50 18 141/60 95 03/05/17 00:00 93 03/05/17 00:00 97.8 70 18 136/72 96 03/05/17 00:00 Nasal Cannula 2.00 03/05/17 00:00 Nasal Cannula 2.00 03/04/17 20:17 105 03/04/17 20:00 Nasal Cannula 3.00 03/04/17 20:00 97.4 101 18 145/64 96 03/04/17 17:55 154 148/72 03/04/17 17:40 147 148/70 03/04/17 17:22 148 142/68 03/04/17 17:04 164 03/04/17 16:45 97.9 125 22 148/62 96 Automatic Cuff 03/04/17 16:45 97.9 136 22 148/62 96 03/04/17 12:27 98.3 124 20 131/79 95 03/04/17 10:51 120 97/60 I/O 03/04/17 03/04/17 03/04/17 03/05/17 03/05/17 03/05/17 07:00 15:00 23:00 07:00 15:00 23:00 Intake Total 647 ml 449 ml Balance 647 ml 449 ml Intake Oral 580 ml 360 ml IV Total 67 ml 89 ml # Voids 1 4 2 # Bowel Movements 1 Result Diagram: 03/02/1720 03/02/17919 Imaging Last Impressions Chest X-Ray 03/02/17913 Signed Impressions: Service Date/Time: Thursday, March 02, 2017 09:22 - CONCLUSION: Mild opacity at the lung bases could represent atelectasis or chronic interstitial lung disease. Otherwise, no acute finding is identified. Brian York MD Objective Remarks GENERAL: This is a well-nourished, well-developed patient, in no apparent distress. CARDIOVASCULAR: Regular rate and regular rhythm without murmurs, gallops, or rubs. RESPIRATORY: better air entry bilaterally with no wheezing. GASTROINTESTINAL: Abdomen soft, non-tender, nondistended. Normal, active bowel sounds MUSCULOSKELETAL: Extremities without clubbing, cyanosis, or edema. NEURO: Alert & Oriented x4 to person, place, time, situation. Moves all ext x4 Procedures none Medications and IVs Current Medications Albuterol/ Ipratropium (Duoneb Neb) 3 ampule STK-MED ONCE .ROUTE ; Start at 09:14; Stop 03/02/17 at 09:15; Status DC Methylprednisolone Sodium Succinate (SoluMEDROL INJ) 125 mg ONCE ONCE IVP Last administered on 03/02/17 09:39; Start 03/02/17 at 09:15; Stop 03/02/17 at 09: 22; Status DC Albuterol/ Ipratropium (Duoneb Neb) 1 ampule Q15M INH Last administered on 09:46; Start 03/02/17 at 09:15; Stop 03/02/17 at 09:51; Status DC Dextrose (D50w (Vial) Inj) 50 ml UNSCH PRN IV HYPOGLYCEMIA-SEE COMMENTS; Start 03/02/17 at 11:30; Stop 03/02/17 at 16:47; Status DC Glucagon (Glucagon Inj) 1 mg UNSCH PRN OTHER HYPOGLYCEMIA-SEE COMMENTS; Start 03/02/17 at 11:30; Stop 03/02/17 at 16:47; Status DC Insulin Aspart (NovoLOG SUPPLEMENTAL SCALE) 1 ACHS SLIDING SCALE SQ Last administered on 03/02/17 15:57; Start 03/02/17 at 16:00; Stop 03/02/17 at 16:47; Status DC Albuterol/ Ipratropium (Duoneb Neb) 1 ampule Q4HR NEB NEB Last administered on 03/04/17 21:40; Start 03/02/17 at 12:00 Albuterol Sulfate 1.25 mg 1.25 mg Q2HR NEB PRN NEB SHORTNESS OF BREATH; Start 03/02/17 at 11:30 Levofloxacin/ Dextrose (Levaquin 750 Mg Premix Inj) 150 ml @ 100 mls/hr ONCE ONCE IV Last administered on 03/02/17 12:18; Start 03/02/17 at 11:30; Stop at 12:59; Status DC Methylprednisolone Sodium Succinate 40 mg 40 mg Q8HR IV PUSH Last administered on 03/03/17 05:22; Start 03/02/17 at 14:00; Stop 03/03/17 at 09:28; Status DC Levofloxacin/ Dextrose (Levaquin 500 Mg Premix Inj) 100 ml @ 100 mls/hr Q24H IV Last administered on 03/05/17 08:44; Start 03/03/17 at 09:00 Aspirin (Aspirin Chew) 81 mg BID CHEW Last administered on 03/05/17 08:43; Start 03/02/17 at 21:00 Lisinopril (Prinivil) 20 mg BID PO Last administered on 03/05/17 08:42; Start 03/02/17 at 21:00 Pantoprazole Sodium (Protonix) 40 mg Q12HR PO Last administered on 03/05/17 08: 43; Start 03/02/17 at 21:00 Tiotropium [place] (Spiriva Inh) 18 mcg DAILY INH Last administered on 08:47; Start 03/03/17 at 09:00 Insulin Detemir (Levemir Inj) 15 units HS SQ Last administered on 03/04/17 21: 41; Start 03/02/17 at 21:00 Influenza Virus Vaccine (Flu (Quadrivalent) Vaccine Inj) 0.5 ml ONCE ONCE IM ; Start 03/03/17 at 10:00; Stop 03/03/17 at 10:01; Status Cancel Dextrose (D50w (Vial) Inj) 50 ml UNSCH PRN IV PUSH HYPOGLYCEMIA - SEE COMMENTS ; Start 03/02/17 at 16:45 Glucagon (Glucagon Inj) 1 mg UNSCH PRN OTHER HYPOGLYCEMIA-SEE COMMENTS; Start 03/02/17 at 16:45 Insulin Aspart (NovoLOG SUPPLEMENTAL SCALE) 1 ACHS SLIDING SCALE SQ Last administered on 03/05/17 06:51; Start 03/02/17 at 21:00 Methylprednisolone Sodium Succinate (SoluMEDROL INJ) 20 mg Q12HR IV PUSH Last administered on 03/05/17 08:44; Start 03/03/17 at 21:00 Metoprolol Tartrate (Lopressor) 25 mg BID PO ; Start 03/04/17 at 09:00; Stop 03/04 at 09:00; Status DC Metoprolol Tartrate 25 mg 25 mg BID PO Last administered on 03/05/17 08:43; Start 03/04/17 at 07:30 Diltiazem HCl/ Sodium Chloride (Cardizem Inj/NS Inj) 125 ml @ 0 mls/hr TITRATE IV Last administered on 03/05/17 03:58; Start 03/04/17 at 15:00 A/P Assessment and Plan A/P - acute hypoxemic respiratory failure/ acute COPD exacerbation keep on oxygen to keep O2 sat >90%- continue neb treatment- switch to po prednisone. patient is oxygen-dependent. -atrial fibrillation with rapid rate- on Cardizme drip; this will be tapered off slowly- continue lopressor- check echo and consult cardiology. -diabetes mellitus; resumed long-acting insulin- continue accu-check with SSI blood sugar levels expected to improve as steroids being tapered down. -hypertension; resumed lisinopril- resume metoprolol. -anemia- chronic- f/u as outpatient. -DVT prophylaxis with SCD's Discharge Planning possible dc home within the next 24 hrs if HR stable. Jasbir Moffett MD Mar 05, 2017 10:08
--- NOTE | 2017-03-05 16:56 | MB ---
cc: JOSE CARLOS VAUGHAN DO DATE OF CONSULTATION 03/05/2017 REASON FOR CONSULTATION Atrial fibrillation with rapid ventricular response. HISTORY OF PRESENT ILLNESS Patricia Hughes is a pleasant 81-year-old female who sees my partner Dr. Keith in the office who originally presented to [facility] emergency room on March 02, 2017 due to shortness of breath. She has a history of COPD and is oxygen-dependent at home. She was going about her normal day and started noticing she had significant shortness of breath. The shortness of breath lasted for the past few days and she attempted to use her oxygen more but this did not help. She has also had a dry cough. She denies fevers, chills, night sweats or chest pain at this time. While she was in the hospital she had an episode of atrial fibrillation with rapid ventricular response and placed on a Cardizem drip. I was asked to see her due to her atrial fibrillation with rapid ventricular response. In seeing her she is currently without palpitations. Her shortness of breath has gotten better. She did mention some chest pain in the center of her chest for about half an hour earlier today. She is currently off the Cardizem drip. PAST MEDICAL HISTORY 1. Paroxysmal atrial fibrillation. 2. Diabetes mellitus. 3. Hypertension. 4. COPD. 5. Gastrointestinal bleed while on Eliquis (December of 2015). 6. Coronary artery disease. PAST SURGICAL HISTORY 1. Appendectomy. 2. Back surgery. 3. Cardiac catheterization (January 2013). Left main normal, mid LAD with an 85-90% stenosis. First diagonal 50-60% stenosis. Left circumflex and obtuse marginals are have mild luminal irregularities. Right coronary artery 40-50% stenosis. PCI of the LAD with an Integrity stent (3 x 18). POBA of the first diagonal. ALLERGIES PENICILLIN. MEDICATIONS 1. Aspirin 81 mg daily. 2. Lisinopril 20 milligrams twice a day. 3. Spiriva 18 micrograms daily. 4. Albuterol two puffs every six hours as needed for shortness of breath. 5. Metoprolol tartrate 25 milligrams twice a day. 6. Metformin 1000 milligrams twice a day. 7. Levemir 15 units every night. 8. Protonix 40 milligrams every 12 hours. FAMILY HISTORY Denies premature coronary artery disease or sudden cardiac within the family. SOCIAL HISTORY The patient previously smoked but quit a number years ago. Denies alcohol or drug abuse. REVIEW OF SYSTEMS 14-systems were reviewed including osteopathic. Pertinent positives and negatives as above otherwise negative. PHYSICAL EXAMINATION VITAL SIGNS: Temperature 97.8, heart rate 100, blood pressure 133/70, respirations 20, pulse ox 99% on 2 liters. GENERAL: In general the patient appears well in no acute distress, alert, awake and oriented x3. HEENT: Extraocular muscles intact. Mucous membranes moist. NECK: Supple. No JVD at 45 degrees. No carotid bruits heard bilaterally. Carotid upstroke is brisk in nature. CARDIOVASCULAR: Heart is irregularly irregular. Positive first and second heart sounds with no noted murmurs, gallops or rubs. LUNGS: Have decreased breath sounds bilaterally but no overt wheezes, rales or rhonchi. ABDOMEN: Soft, nontender, nondistended. No organomegaly noted. EXTREMITIES: Show no clubbing, cyanosis or edema. Femoral and distal pulses intact bilaterally. NEUROLOGIC: No focal deficits. OSTEOPATHIC: Mild lordosis. No kyphoscoliosis or paraspinal tender points. LABORATORY FINDINGS Hemoglobin 10.0, hematocrit 30.7, platelets 296. Potassium 3.8, BUN 12, creatinine 0.76. Electrocardiogram (March 04, 2017 at 1327) atrial fibrillation with rapid ventricular response, aberrant conduction versus PVC, voltage criteria for LVH with possible secondary ST-T wave changes. Poor R-wave progression, cannot rule out anterior or septal myocardial infarction, most likely normal variant. ASSESSMENT 1. Paroxysmal atrial fibrillation with rapid ventricular response. 2. Chest pain mildly concerning for coronary insufficiency. 3. COPD exacerbation on admission. 4. COPD at home on as needed oxygen. 5. History of hypertension. 6. History of diabetes mellitus. 7. History of GI bleed on aspirin and Eliquis for atrial fibrillation. RECOMMENDATIONS 1. Ms. Hughes appears her presented with a COPD exacerbation which then put her in atrial fibrillation with rapid ventricular response. 2. Her Cardizem drip has been turned off and her heart rates are mostly controlled. We will attempt to increase her AV nereida blockers including her beta-keely and possible adding further calcium channel blockers to help control her heart rate. At this time she has an unknown ejection fraction and we will plan on checking an echo. If her ejection fraction is low we will attempt to avoid calcium channel blockers. 3. Due to her atrial fibrillation episode as well as the chest pain we should check a pharmacologic nuclear stress test to rule out underlying CAD. As she did eat lunch including some caffeine we will plan for rest images this afternoon and stress images tomorrow morning. If there is concern for ischemia she will need undergo cardiac catheterization with a plan for possible Friday. I discussed with her extensively her risk of stroke not being on Eliquis. Her [id number] score equals 4 putting her at significant risk. I did explain that her GI bleed was on aspirin and Eliquis and that we could try Eliquis without aspirin depending on the results of her stress test but she is adamant that she does not want to be on anticoagulants again. Thank you for allowing me to see Patricia Hughes. If there are any questions please do not hesitate to call. Jose Carlos Vaughan DO VGP/KK /3:57 PM /4:15 PM
[2017-03-05] MEDS: INSULIN DETEMIR 100 UNITS/ML VIAL SQ SCH (22:52)
[2017-03-06] VITALS (12 sets, daily range): BP systolic 106–189; BP diastolic 56–83; PULSE 73–86; RESP 18–20; TEMP 97.7–98.6; O2SAT 92–97
[2017-03-06] MEDS: RESP: ALBUTEROL 2.5 MG/IPRATROPIUM 0.5 MG NEB (SCH) NEB ×3 (03:36→11:08)
[2017-03-06] MEDS: MEDIUM DOSE INSULIN NOVOLOG SUPPLEMENTAL SCALE SQ SCH ×4 (05:57→21:47)
--- NOTE | 2017-03-06 08:30 | HHI.PR ---
Subjective Remarks sitting on the bed with no distress. sob continues to improve. no chest pain today. Objective Vitals Vital Signs Date Time Temp Pulse Resp B/P Pulse Ox O2 Delivery O2 Flow Rate FiO2 03/06/17 07:58 94 Nasal Cannula 2.00 03/06/17 05:31 158/72 03/06/17 04:12 97.8 86 18 183/83 92 168/76 03/06/17 00:15 98.2 81 18 158/63 95 03/05/17 20:35 97.7 99 18 126/61 93 03/05/17 20:00 96 03/05/17 19:55 94 Nasal Cannula 2.00 03/05/17 19:00 Nasal Cannula 2.00 03/05/17 16:00 97.0 94 20 154/70 94 03/05/17 12:00 97.8 110 20 133/70 99 I/O 03/05/17 03/05/17 03/05/17 03/06/17 03/06/17 03/06/17 07:00 15:00 23:00 07:00 15:00 23:00 Intake Total 449 ml 960 ml 240 ml 200 ml Output Total 700 ml Balance 449 ml 960 ml 240 ml -500 ml Intake Oral 360 ml 960 ml 240 ml 200 ml IV Total 89 ml Output Urine Total 700 ml # Voids 2 3 3 # Bowel Movements 1 0 0 Result Diagram: 03/02/1720 03/02/17 0920 Imaging Last Impressions Chest X-Ray 03/02/17 0914 Signed Impressions: Service Date/Time: Thursday, March 02, 2017 09:22 - CONCLUSION: Mild opacity at the lung bases could represent atelectasis or chronic interstitial lung disease. Otherwise, no acute finding is identified. Brian York MD Objective Remarks GENERAL: This is a well-nourished, well-developed patient, in no apparent distress. CARDIOVASCULAR: Regular rate and regular rhythm without murmurs, gallops, or rubs. RESPIRATORY: better air entry bilaterally with no wheezing. GASTROINTESTINAL: Abdomen soft, non-tender, nondistended. Normal, active bowel sounds MUSCULOSKELETAL: Extremities without clubbing, cyanosis, or edema. NEURO: Alert & Oriented x4 to person, place, time, situation. Moves all ext x4 Procedures none Medications and IVs Current Medications Albuterol/ Ipratropium (Duoneb Neb) 3 ampule STK-MED ONCE .ROUTE ; Start at 09:14; Stop 03/02/17 at 09:15; Status DC Methylprednisolone Sodium Succinate (SoluMEDROL INJ) 125 mg ONCE ONCE IVP Last administered on 03/02/17 09:39; Start 03/02/17 at 09:15; Stop 03/02/17 at 09: 22; Status DC Albuterol/ Ipratropium (Duoneb Neb) 1 ampule Q15M INH Last administered on 09:46; Start 03/02/17 at 09:15; Stop 03/02/17 at 09:51; Status DC Dextrose (D50w (Vial) Inj) 50 ml UNSCH PRN IV HYPOGLYCEMIA-SEE COMMENTS; Start 03/02/17 at 11:30; Stop 03/02/17 at 16:47; Status DC Glucagon (Glucagon Inj) 1 mg UNSCH PRN OTHER HYPOGLYCEMIA-SEE COMMENTS; Start 03/02/17 at 11:30; Stop 03/02/17 at 16:47; Status DC Insulin Aspart (NovoLOG SUPPLEMENTAL SCALE) 1 ACHS SLIDING SCALE SQ Last administered on 03/02/17 15:57; Start 03/02/17 at 16:00; Stop 03/02/17 at 16:47; Status DC Albuterol/ Ipratropium (Duoneb Neb) 1 ampule Q4HR NEB NEB Last administered on 03/05/17 19:53; Start 03/02/17 at 12:00 Albuterol Sulfate 1.25 mg 1.25 mg Q2HR NEB PRN NEB SHORTNESS OF BREATH; Start 03/02/17 at 11:30 Levofloxacin/ Dextrose (Levaquin 750 Mg Premix Inj) 150 ml @ 100 mls/hr ONCE ONCE IV Last administered on 03/02/17 12:18; Start 03/02/17 at 11:30; Stop at 12:59; Status DC Methylprednisolone Sodium Succinate 40 mg 40 mg Q8HR IV PUSH Last administered on 03/03/17 05:22; Start 03/02/17 at 14:00; Stop 03/03/17 at 09:28; Status DC Levofloxacin/ Dextrose (Levaquin 500 Mg Premix Inj) 100 ml @ 100 mls/hr Q24H IV Last administered on 03/05/17 08:44; Start 03/03/17 at 09:00 Aspirin (Aspirin Chew) 81 mg BID CHEW Last administered on 03/05/17 22:48; Start 03/02/17 at 21:00 Lisinopril (Prinivil) 20 mg BID PO Last administered on 03/05/17 22:47; Start 03/02/17 at 21:00 Pantoprazole Sodium (Protonix) 40 mg Q12HR PO Last administered on 03/05/17 22: 47; Start 03/02/17 at 21:00 Tiotropium [place] (Spiriva Inh) 18 mcg DAILY INH Last administered on 08:47; Start 03/03/17 at 09:00 Insulin Detemir (Levemir Inj) 15 units HS SQ Last administered on 03/05/17 22: 52; Start 03/02/17 at 21:00 Influenza Virus Vaccine (Flu (Quadrivalent) Vaccine Inj) 0.5 ml ONCE ONCE IM ; Start 03/03/17 at 10:00; Stop 03/03/17 at 10:01; Status Cancel Dextrose (D50w (Vial) Inj) 50 ml UNSCH PRN IV PUSH HYPOGLYCEMIA - SEE COMMENTS ; Start 03/02/17 at 16:45 Glucagon (Glucagon Inj) 1 mg UNSCH PRN OTHER HYPOGLYCEMIA-SEE COMMENTS; Start 03/02/17 at 16:45 Insulin Aspart (NovoLOG SUPPLEMENTAL SCALE) 1 ACHS SLIDING SCALE SQ Last administered on 03/06/17 05:57; Start 03/02/17 at 21:00 Methylprednisolone Sodium Succinate (SoluMEDROL INJ) 20 mg Q12HR IV PUSH Last administered on 03/05/17 22:48; Start 03/03/17 at 21:00 Metoprolol Tartrate (Lopressor) 25 mg BID PO ; Start 03/04/17 at 09:00; Stop 03/04 at 09:00; Status DC Metoprolol Tartrate 25 mg 25 mg BID PO Last administered on 03/05/17 08:43; Start 03/04/17 at 07:30; Stop 03/05/17 at 16:16; Status DC Diltiazem HCl/ Sodium Chloride (Cardizem Inj/NS Inj) 125 ml @ 0 mls/hr TITRATE IV Last administered on 03/05/17 03:58; Start 03/04/17 at 15:00 Metoprolol Tartrate (Lopressor) 25 mg QID PO Last administered on 03/05/17 22: 47; Start 03/05/17 at 18:00 A/P Assessment and Plan A/P - acute hypoxemic respiratory failure/ acute COPD exacerbation-improved. keep on oxygen to keep O2 sat >90%- continue neb treatment- switch to po prednisone upon discharge. patient is oxygen-dependent. -atrial fibrillation with rapid rate- HR better-; continue lopressor- cardiology consult appreciated. echo and stress test pending. declined anticoagulation; says that she was on Eliquis last year and developed internal bleeding. -diabetes mellitus; resumed long-acting insulin- continue accu-check with SSI blood sugar levels expected to improve as steroids being tapered down. -hypertension; resumed lisinopril- resume metoprolol. -anemia- chronic- f/u as outpatient. -DVT prophylaxis with SCD's Discharge Planning possible dc home later today if stress test negative. f/u; pcp and cardiology. see med list. d/w the patient. Jasbir Moffett MD Mar 06, 2017 08:30
[2017-03-06] MEDS ORDERED: METO25TA3 PO (08:32)
[2017-03-06] MEDS: METOPROLOL TARTRATE 25 MG TAB PO SCH ×4 (08:49→21:48)
[2017-03-06] MEDS: PANTOPRAZOLE SOD 40 MG DELAYED RELEASE TAB PO SCH ×2 (08:49→21:48)
[2017-03-06] MEDS: LISINOPRIL 20 MG TAB PO SCH ×2 (08:49→21:48)
[2017-03-06] MEDS: ASPIRIN 81 MG CHEW TAB CHEW SCH ×2 (08:49→21:47)
[2017-03-06] MEDS: methylPREDNISolone SOD SUCC 40 MG/1 ML VIAL IV PUSH SCH ×2 (08:50→21:48)
[2017-03-06] MEDS ORDERED: REGADENOSON INJ 0.4 MG/5 ML SYR ONE (09:27)
--- NOTE | 2017-03-06 11:14 | RADRPT ---
EXAM DATE/TIME: 03/05/2017 16:29 [facility] COMPARISON: MYOCARDIAL PERF PHARM SPECT, GATED W/EF, December 04, 2015, 13:08. INDICATIONS : Mid chest pain for one day. Atrial fibrillation. DOSE: 30.1 mCi Tc99m Myoview at stress. 31.2 mCi Tc99m Myoview at rest. 0.4 mg Lexiscan STRESS SYMPTOMS: Short of breath. EJECTION FRACTION: 33% MEDICAL HISTORY : Hypertension. Diabetes mellitus type 2. Chronic obstructive pulmonary disease. SURGICAL HISTORY : Appendectomy. Back surgery. ENCOUNTER: Initial ACUITY: 1 day PAIN SCALE: 0/10 LOCATION: chest TECHNIQUE: The patient underwent pharmacologic stress with infusion of prescribed dose. Continuous ECG tracing was monitored during stress. Gated SPECT imaging was performed after stress and conventional SPECT i maging was performed at rest. The examination was performed on a SPECT/CT scanner, both attenuation and non-corrected datasets were reviewed. FINDINGS: DISTRIBUTION: The maximum perfused segment at stress is in the septal wall. PERFUSION STUDY: There is moderately diminished. Tracer delivery to a large portion of the cardiac apex, particularly the inferolateral and lateral apical region and mildly diminished relative perfusion majority of the posterobasal wall. There is at least mild-moderate redistribution. GATED STUDY: Moderate left ventricular chamber dilatation and global hypokinesis CONCLUSION: Moderate volume of moderately reversible ischemia. Fairly severe LV dysfunction. RISK CATEGORY: High (>3% Annual Mortality Rate) Brian Brewster MD on March 06, 2017 at 11:10 Board Certified Radiologist. This report was verified electronically.
[2017-03-06] MEDS: TIOTROPIUM BROMIDE 18 MCG INH INH SCH (11:33)
[2017-03-06] MEDS: LEVOFLOXACIN 500 MG PREMIX INJ 100 ML IV SCH (11:34)
--- NOTE | 2017-03-06 18:44 | PD.CARD.PN ---
Subjective Subjective Remarks No events overnight No further chest pain Objective Medications Current Medications Medications (Trade) Dose Ordered Sig/Sushil Route Start Time Stop Time Status Last Admin (Levaquin 500 Mg Premix Inj) 100 ml @ 100 mls/hr Q24H IV 03/03/17 09:00 03/06/17 11:34 (Aspirin Chew) 81 mg BID CHEW 03/02/17 21:00 03/06/17 08:49 (Prinivil) 20 mg BID PO 03/02/17 21:00 03/06/17 08:49 (Protonix) 40 mg Q12HR PO 03/02/17 21:00 03/06/17 08:49 (Spiriva Inh) 18 mcg DAILY INH 03/03/17 09:00 03/06/17 11:33 (Levemir Inj) 15 units HS SQ 03/02/17 21:00 03/05/17 22:52 (D50w (Vial) Inj) 50 ml UNSCH PRN IV PUSH 03/02/17 16:45 (Glucagon Inj) 1 mg UNSCH PRN OTHER 03/02/17 16:45 Methylprednisolone Sodium Succinate 20 mg 20 mg Q12HR IV PUSH 03/03/17 21:00 03/06/17 08:50 (Cardizem Inj/NS Inj) 125 ml @ 0 mls/hr TITRATE IV 03/04/17 15:00 03/05/17 03:58 (Lopressor) 25 mg QID PO 03/05/17 18:00 03/06/17 17:39 Vital Signs / I&O Vital Signs Date Time Temp Pulse Resp B/P Pulse Ox O2 Delivery O2 Flow Rate FiO2 03/06/17 16:00 97.8 74 20 158/60 94 03/06/17 16:00 94 Nasal Cannula 2.00 03/06/17 12:57 93 2.00 03/06/17 12:00 97.7 85 18 179/72 97 163/70 03/06/17 11:10 93 Nasal Cannula 2.50 03/06/17 08:00 98.0 85 20 189/81 93 160/80 03/06/17 08:00 82 03/06/17 07:58 94 Nasal Cannula 2.00 03/06/17 05:31 158/72 03/06/17 04:12 97.8 86 18 183/83 92 168/76 03/06/17 00:15 98.2 81 18 158/63 95 03/05/17 20:35 97.7 99 18 126/61 93 03/05/17 20:00 96 03/05/17 19:55 94 Nasal Cannula 2.00 03/05/17 19:00 Nasal Cannula 2.00 I/O 03/05/17 03/05/17 03/05/17 03/06/17 03/06/17 03/06/17 07:00 15:00 23:00 07:00 15:00 23:00 Intake Total 449 ml 960 ml 240 ml 200 ml 960 ml Output Total 700 ml Balance 449 ml 960 ml 240 ml -500 ml 960 ml Intake Oral 360 ml 960 ml 240 ml 200 ml 960 ml IV Total 89 ml Output Urine Total 700 ml # Voids 2 3 3 3 # Bowel Movements 1 0 0 1 Physical Exam GENERAL: NAD, AAOx3 SKIN: Warm and dry. HEAD: Atraumatic. Normocephalic. EYES: Pupils equal and round. No scleral icterus. No injection or drainage. ENT: No nasal bleeding or discharge. Mucous membranes pink and moist. NECK: Trachea midline. No JVD. CARDIOVASCULAR: Regular rate and rhythm. RESPIRATORY: No accessory muscle use. Decreased breath sounds bilaterally GASTROINTESTINAL: Abdomen soft, non-tender, nondistended. Hepatic and splenic margins not palpable. MUSCULOSKELETAL: Extremities without clubbing, cyanosis, or edema. No obvious deformities. NEUROLOGICAL: Awake and alert. No obvious cranial nerve deficits. Motor grossly within normal limits. Five out of 5 muscle strength in the arms and legs. Normal speech. PSYCHIATRIC: Appropriate mood and affect; insight and judgment normal. Assessment and Plan Problem List: (1) COPD with acute exacerbation (2) Atrial fibrillation with tachycardic ventricular rate (3) History of coronary artery disease (4) DM (diabetes mellitus), type 2, uncontrolled (5) HTN (hypertension) Assessment and Plan 1) Presented with COPD exacerbation 2) AFib with RVR now controlled, con't BB Does not want anti-coagulant due to previous GI bleed 3) HTN, added Norvasc 4) 2D echo pending 5) Abnormal stress test, plan cardiac catheterization tomorrow NPO after midnight Jose Carlos Joseph DO Mar 06, 2017 18:44
[2017-03-06] MEDS: amLODIPine BESYLATE 5 MG TAB PO SCH (18:45)
[2017-03-06] MEDS: INSULIN DETEMIR 100 UNITS/ML VIAL SQ SCH (21:46)
[2017-03-07] VITALS (16 sets, daily range): BP systolic 109–176; BP diastolic 56–84; PULSE 64–84; RESP 16–20; TEMP 97.5–98.4; O2SAT 92–95
[2017-03-07] MEDS: MEDIUM DOSE INSULIN NOVOLOG SUPPLEMENTAL SCALE SQ SCH ×4 (05:58→22:47)
[2017-03-07] MEDS: ASPIRIN 81 MG CHEW TAB CHEW SCH ×2 (07:29→22:37)
[2017-03-07] MEDS: LISINOPRIL 20 MG TAB PO SCH ×2 (07:29→22:37)
[2017-03-07] MEDS: amLODIPine BESYLATE 5 MG TAB PO SCH (07:29)
[2017-03-07] MEDS: PANTOPRAZOLE SOD 40 MG DELAYED RELEASE TAB PO SCH ×2 (07:29→22:36)
[2017-03-07] MEDS: methylPREDNISolone SOD SUCC 40 MG/1 ML VIAL IV PUSH SCH (07:30)
[2017-03-07] MEDS: METOPROLOL TARTRATE 25 MG TAB PO SCH ×4 (07:30→22:38)
[2017-03-07] MEDS: TIOTROPIUM BROMIDE 18 MCG INH INH SCH (07:33)
[2017-03-07] MEDS: LEVOFLOXACIN 500 MG PREMIX INJ 100 ML IV SCH (07:53)
[2017-03-07] MEDS ORDERED: HEPARIN-NS/PF INJ 500 ML ONE ×2 (09:12→10:03)
[2017-03-07] MEDS ORDERED: NITROGLYCERIN INJ 5 ML ONE (09:20)
[2017-03-07] MEDS ORDERED: VERAPAMIL HCL 5 MG/2 ML VIAL ONE (09:20)
[2017-03-07] MEDS ORDERED: HEPARIN SODIUM - IV 10,000 UNITS/10 ML VIAL ONE ×2 (09:20→10:35)
[2017-03-07] MEDS ORDERED: MIDAZOLAM HCL 2 MG/2 ML VIAL ONE (09:20)
[2017-03-07] MEDS ORDERED: IOHEXOL 350 MG/ML 100 ML BTL (for Cath Lab) OTHER ONE (09:42)
[2017-03-07] MEDS ORDERED: IOHEXOL 350 MG/ML 50 ML BTL (for Cath Lab) OTHER ONE (09:42)
[2017-03-07] MEDS ORDERED: CLOPIDOGREL 300 MG TAB ONE (10:35)
--- NOTE | 2017-03-07 11:18 | CATHPROC ---
[facility] HIS Report Study Information Study Number Admission Scheduled Start Study Start [id number] Mar 02 2017 12:10PM 03/06/2017 Mar 07 2017 9:09AM [place] Service Cardiac Catheterization Admit Source Facility Department Other [facility] - Pet Technologist Physician and Clinical Staff Initial Jose Carlos Amaro Superintendent Storage Areakerry Palma RN, Jennifer Gifford RN Other cathlab, cathlab Recorder Pilar Madison,MACHINIST OUTSIDE TECH2 Scrub Andrea Isaac RCIS(BS) Procedures Performed Procedure Location (Site) Vessel Name Coronary Angiograms LCA Left Coronary Coronary Angiograms RCA Right Coronary Drug Eluting Inflatio CIRC Mid CIRC L Heart Cath PTCA CIRC Mid CIRC PTCA ADD ON'S Wire insertion Fem Art (right) Femoral Art Equipment Time Ball Fringe Machine Operator Description Size Mfg Part Number Used/Scraped WIRE, BALANCE MIDDLEWEIGHT [id number] 10:20 [employer] 190CM Used 190CM *[id number] TRANSDUCER, TRUWAVE [id number] 09:12 MEYERS PAEZ * Used W/STOCKCOCK *[id number] 10:27 [employer] BALLOON, 2.5 8MM EMERGE MR 2.5 8MM Used *[id number]-502-10.0- INTRODUCER SET, 09:57 [employer]. FR 5 SC-NT-U-SST Used MICROPUNCTURE, STIFFENED *[id number] 534-520T *[id number] 534-521T *[id number] WIRE, HYDROSTEER 150CM [id number] 09:57 DAIG/ST. [employer] 150CM Used ANGLED GLIDE *[id number] 09:12 [employer] PACK, CCL CUSTOM * Used *[id number] 09:12 [employer] SUPPORT, ARTERIAL ADULT 50401 *[id number] Used BALLOON, 2.75 X 8MM NC [id number] 10:46 MEDTRON[employer] 8MM Used EUPHORA *[id number] STENT, 2.75 12 RESOLUTE [id number] 10:33 MED[employer]ONIC 2.75 12 Used INTEGRITY RX *[id number] 10:18 [employer]/AVE EBU 3.5 Z2 GUIDE CATHETER FR 6 Used *[id number] 10:14 [employer] 30 PARADISE INDEFLATOR Used *[id number] BAND, RADIAL COMPRESSION TR [id number] 10:56 [employer] 24CM Used SHORT 24 *[id number] BAND, RADIAL COMPRESSION TR [id number] 10:57 [employer] 24CM Used SHORT 24 *[id number] 09:12 [employer] WIRE, EXCHANGE 260CM 3MMJ 260CM Used *[id number] 09:12 NAMIC MANIFOLD, 4 PORT * Used *[id number] 09:12 [employer] OMNIPAQUE, 350 MG, 150ML 150ML [id number] Used [id number] 09:12 [place] [employer] BL[employer],WARM AIR CCL * Used *[id number] 09:58 [employer] SHEATH, FR5 TERUMO (10CM) FR 5 Used *[id number] [id number] 10:14 [employer] SHEATH, FR6 TERUMO (10CM) FR 6 Used *[id number] SHEATH, FR6 TRANSRADIAL [id number] 09:12 [employer]ICAL FR 6 Used SLENDER 10CM *[id number] Equipment Model, Serial, Lot Number and Expiration Data Description Model Number Serial Number Lot Number Expiration Date BALLOON, 2.5 8MM EMERGE MR [id number] 05-27-2019 INTRODUCER SET, [id number] 01-25-2020 MICROPUNCTURE, STIFFENED STENT, 2.75 12 RESOLUTE [id number] 03-08-2018 INTEGRITY RX WIRE, HYDROSTEER 150CM [id number] 12-26-2019 ANGLED GLIDE History: Current Medications Medication Dosage/Unit Route Frequency Last Date/Time Taken LISINOPRIL Glucophage LOPRESSOR ASA History: Allergies Allergy Reaction Penicillin Rash History: Risk Factors Family History of Hypertension Dyslipidemia Previous ND Previous Heart Failure Premature CAD Yes No No No No Prior Valve Prior PCI Prior PCIDate Prior CABG Surgery No Yes 01/25/2013 No Cerebrovascular Peripheral Artery Chronic Lung On Dialysis Diabetes Diabetes Therapy Disease Disease Disease No No No Yes Yes Oral History: Stress Tests Stress or Imaging Studies Performed Yes Standard Exercise Stress Test No Stress Echo No Stress Test SPECT No Stress Test CMR Stress Test CMR Result Stress Test CMR Ischemia Risk/Extent Yes Positive Low Cardiac CTA Coronary Calcium Score No No Labs Hgb (g/dl) Hct (%) WBC (l/cumm) Platelets (thousands) 11.60-17.00 35.00-51.00 4.00-11.00 150.00-450.00 10.0 30.7 10.7 296 Glucose (mg/dl) BUN (mg/dl) Creatinine (mg/dl) BUN:Creatinine (1:x) 74.00-106.00 7.00-18.00 0.50-1.30 10.00-20.00 197 12 0.7 17.1 Na (meq/l) K (meq/l) 136.00-145.00 3.50-5.10 139 3.8 INR (PTT:PT) 0.90-1.10 1.1 Medication Medication Total Dose (Bolus/Oral) Medication Total Dosage/Unit 1% XYLOCAINE 40 mL FENTANYL 25 mcg HEPARIN 7700 units NTG (IC) 100 mcg OXYGEN 6 l/min PLAVIX 600 mg RADIAL COCKTAIL 5 mL (Bolus) VERSED 0.5 mg Medications (Bolus/Oral) Medication Time Given Dosage/Unit Administered By Reason OXYGEN 03/07/2017 9:07:18 AM 2 l/min Roberto Palma RN Patient arrived on 2 l/min OXYGEN given by Roberto Palma RN via Nasal. Ordered by Jose Carlos Joseph. VERSED 03/07/2017 9:43:07 AM 0.5 mg Jennifer Gonzáles 0.5 mg VERSED given in lab by Jennifer Gonzáles RN in Left Forearm via Peripheral IV. Ordered by Jose Carlos Danielle. FENTANYL 03/07/2017 9:44:24 AM 25 mcg Jennifer Gonzáles 25 mcg FENTANYL given in lab by Jennifer Gonzáles RN in Left Forearm via Peripheral IV. Ordered by Jose Carlos Manning. 1% XYLOCAINE 03/07/2017 9:48:30 AM 20 mL Jose Carlos Joseph 20 mL 1% XYLOCAINE given in lab by Jose Carlos Joseph in Right Radial via Subcutaneous. Ordered by Jose Carlos Manning. RADIAL COCKTAIL 03/07/2017 9:51:35 AM 5 mL (Bolus) Jose Carlos Joseph 5 mL (Bolus) RADIAL COCKTAIL given in lab by Jose Carlos Joseph via Radial. Using [Solution Name]. Ord ered by Jose Carlos Joseph. 3800 units heparin,200mcg nitro,2.5mg verapamil OXYGEN 03/07/2017 9:54:00 AM 4 l/min Jennifer Gonzáles Patient arrived on 4 l/min OXYGEN given by Jennifer Gonzáles RN via Nasal. Ordered by Yeni Joseph NTG (IC) 03/07/2017 9:54:52 AM 100 mcg Jose Carlos Joseph Patient arrived on 100 mcg NTG (IC) given by Jose Carlos Joseph in Right Radial via Intra-arterial. Or dered by Jose Carlos Joseph. 1% XYLOCAINE 03/07/2017 9:59:56 AM 20 mL Jose Carlos Joseph 20 mL 1% XYLOCAINE given in lab by Jose Carlos Joseph in Right Groin via Subcutaneous. Ordered by Jose Carlos Brunson. HEPARIN 03/07/2017 10:15:12 AM 5700 units Jennifer Gonzáles 5700 units HEPARIN given in lab by Jennifer Gonzáles RN in Left Forearm via Peripheral IV. Ordered by Jose Carlos Joseph. HEPARIN 03/07/2017 10:33:02 AM 2000 units Jennifer Gonzáles 2000 units HEPARIN given in lab by Jennifer Gonzáles RN in Left Forearm via Peripheral IV. Ordered by Jose Carlos Joseph. PLAVIX 03/07/2017 11:05:00 AM 600 mg Jennifer Gonzáles 600 mg PLAVIX given in lab by Jennifer Gonzáles RN via Oral. Ordered by Jose Carlos Joseph. Medication (Drip) Medication Time Given Dosage/Unit Concentration/Unit Diluent (ml) Solution IV Solutions 03/07/2017 9:09:47 AM 0 mL (IV) NaCl .9 IV Solutions given in lab by Roberto Palma RN in Left Forearm via Peripheral IV. Pump/Drip Flow = 20 m l/hr using NaCl .9. Ordered by Jose Carlos Joseph. Initial Case Assessment Cardiovascular HR NIBP 73 160/63 Edema Present Skin color Skin None Normal Warm Dry Circulatory - Right Pulses Dorsalis Pedis Femoral Radial 2 2 2 Scale (0,1,2,3,4,d) Circulatory - Left Pulses Dorsalis Pedis Femoral Radial 2 2 Scale (0,1,2,3,4,d) Neurological State Oriented to time-place- Alert Moves all extremities person Respiration - General Respiration Rate SpO2 (%) O2 (lpm) (B/min) 15 96 2 Final Case Assessment Cardiovascular HR NIBP 84 181/75 Edema Present Skin color Skin None Normal Warm Dry Circulatory - Right Pulses Dorsalis Pedis Femoral Radial 2 2 2 Scale (0,1,2,3,4,d) Circulatory - Left Pulses Dorsalis Pedis Femoral Radial 2 2 Scale (0,1,2,3,4,d) Neurological State Oriented to time-place- Alert Moves all extremities person Respiration - General Respiration Rate SpO2 (%) O2 (lpm) (B/min) 15 95 4 Chronological Log Time Study Chronological Log 9:00:49 Patient arrived via Bed. 9:07:18 Patient arrived on 2 l/min OXYGEN given by Roberto Palma RN via Nasal. Ordered by Jose Carlos Joseph. 9:08:54 Patient Name, D.O.B, / Armband Verified By R.N. Vitals capture started with the following parameters, Patient=Adult, Interval=5 min, Initial Pr aejudd=802 mmHg, 9:08:56 Deflation Rate=5 mmHg, Cuff placed on Right Arm 9:09:35 Consent signed by the physician and the patient and verified by the Pet Technologist staff. 9:09:36 Pre-op and post- op instructions given; patient acknowledges understanding of instructions. 9:09:38 Patient has been NPO for More than 6Hrs. 9:09:39 Skin Breakdown- 9:09:41 Patient Warmer Placed on the Table. 9:09:43 HR=73 bpm, DFED=253/63 mmhg, SpO2=96.0 %, Pain=0, Roni=10, Perera=2 9:09:45 Kavin Prominences Protected 9:09:46 A # 22 IV was noted in the Forearm (left). Grade = 0 IV Solutions given in lab by Roberto Palma RN in Left Forearm via Peripheral IV. Pump/Drip Flow = 20 ml/hr using NaCl .9. 9:09:47 Ordered by Jose Carlos Joseph. 9:09:49 History and physical on the chart or being dictated. Assessment: Initial Case, HR=73 BPM, RXZG=810/63 mmhg, Edema=None, Color=Normal, Skin = Warm, D ry Right Pulses: Irving Ped=2, Femoral=2, Radial=2 9:09:50 Left Pulses: Irving Ped=2, Femoral=2 Neurological: State=Alert, Ox3, HAGAN Respiration: Resp=15 B/min, SpO2=96 %, O2=2 lpm 9:12:34 Reference ECG taken 9:15:23 HR=69 bpm, YAQL=759/82 mmhg, SpO2=96.0 %, Resp=12 B/min, Pain=0, Roni=10, Perera=2 9:19:45 HR=66 bpm, ZIAB=014/90 mmhg, SpO2=95.0 %, Resp=14 B/min, Pain=0, Roni=10, Perera=2 9:24:06 Right groin and right radial prepped with 2% chlorhexidine, and with a 3 min. waiting time. 9:24:46 HR=68 bpm, QPTA=442/86 mmhg, SpO2=93.0 %, Resp=14 B/min, Pain=0, Roni=10, Perera=2 9:25:08 Pressure channel 1 zeroed. 9:29:45 HR=71 bpm, DYJJ=743/90 mmhg, SpO2=92.0 %, Resp=25 B/min 9:34:38 HR=70 bpm, JNIB=381/85 mmhg, SpO2=92.0 %, Resp=15 B/min, Pain=0, Roni=10, Perera=2 9:39:41 HR=77 bpm, WCOW=183/87 mmhg, SpO2=91.0 %, Resp=14 B/min, Pain=0, Roni=10, Perera=2 9:43:07 0.5 mg VERSED given in lab by Jennifer Gonzáles RN in Left Forearm via Peripheral IV. Ordered by Jose Carlos Joseph. 9:44:24 25 mcg FENTANYL given in lab by Jennifer Gonzáles, TAMIA in Left Forearm via Peripheral IV. Order ed by Jose Carlos Joseph. 9:44:46 HR=69 bpm, JQOM=230/83 mmhg, SpO2=92 %, Resp=14 B/min, Pain=0, Roni=10, Perera=2 Time Out. Correct patient, correct procedure,correct physician, ,power injector loaded or not l oaded with contrast with 9:47:16 surgical team present. Time Out Concurred by MD, individual staff and SPEEDER WORKER in procedure 9:47:20 Case Start 20 mL 1% XYLOCAINE given in lab by Jose Carlos Joseph in Right Radial via Subcutaneous. Ordered by Jake 9:48:30 Jose Carlos. 9:49:14 Access site was Radial Artery. 9:49:46 HR=75 bpm, MEQJ=154/87 mmhg, SpO2=92.0 %, Resp=15 B/min, Pain=0, Roni=10, Perera=2 A SHEATH, FR6 TRANSRADIAL SLENDER 10CM FR 6 was advanced into the Radial (right) using the Heather fied Seldinger 9:50:29 technique. 5 mL (Bolus) RADIAL COCKTAIL given in lab by Jose Carlos Joseph via Radial. Using [Solution Name ]. Ordered by 9:51:35 Jose Carlos Joseph. 3800 units heparin,200mcg nitro,2.5mg verapamil A JR 4.0 INFINITI CATHETER FR 5 was advanced over a wire. OMNIPAQUE, 350 MG, 150ML 150ML was us ed for 9:51:45 injections. 9:54:00 Patient arrived on 4 l/min OXYGEN given by Jennifer Gonzáles, TAMIA via Nasal. Ordered by Jose Carlos Hein. 9:54:40 HR=72 bpm, BAOO=844/66 mmhg, SpO2=92 %, Resp=15 B/min, Pain=0, Roni=10, Perera=2 Patient arrived on 100 mcg NTG (IC) given by Jose Carlos Joseph in Right Radial via Intra-arteri al. Ordered by Jake 9:54:52 Jose Carlos. 9:57:03 The previous wire was exchanged for a WIRE, HYDROSTEER 150CM ANGLED GLIDE 150CM. 9:58:06 Catheter was removed 9:59:42 HR=72 bpm, ZJZM=133/68 mmhg, SpO2=92.0 %, Resp=15 B/min, Pain=0, Roni=10, Perera=2 9:59:56 20 mL 1% XYLOCAINE given in lab by Jose Carlos Joseph in Right Groin via Subcutaneous. Ordere d by Jose Carlos Joseph. 10:00:46 Access site was Right Femoral Artery. A INTRODUCER SET, MICROPUNCTURE, STIFFENED FR 5 was advanced into the Fem Art (right) using the Modified 10:01:02 Seldinger technique. A SHEATH, FR5 TERUMO (10CM) FR 5 was exchanged in the Fem Art (right). This was necessary in or latricia to achieve 10:01:28 vascular hemostasis. Recorded Pressure: FA, HR=77, Condition=Condition 1 10:01:59 (Femoral Artery) FA 156/66/101 10:02:21 An injection in the Fem Art (right) was made through the SHEATH, FR5 TERUMO (10CM) FR 5. A JR 4.0 INFINITI CATHETER FR 5 was advanced over a wire. OMNIPAQUE, 350 MG, 150ML 150ML was us ed for 10:03:47 injections. Recorded Pressure: LV, HR=71, Condition=Condition 1 10:04:45 (Left Ventricle) LV 166/6/12 10:05:22 HR=80 bpm, WZNC=711/78 mmhg, SpO2=91.0 %, Resp=15 B/min, Pain=0, Roni=10, Perera=2 Recorded Pressure: LV, Ao, HR=71, Condition=Condition 1 10:05:44 (Left Ventricle) LV 171/4/9, (Aorta) Ao 167/67/107 10:06:53 The RCA was injected and visualized at various angles. OMNIPAQUE, 350 MG, 150ML 150ML used . After removing the current catheter a JL 4.0 INFINITI CATHETER FR 5 was advanced over a WIRE, E XCHANGE 260CM 10:07:29 3MMJ 260CM. 10:09:50 HR=79 bpm, QXWG=424/79 mmhg, SpO2=93.0 %, Resp=17 B/min, Pain=0, Roni=10, Perera=2 10:11:15 The LCA was injected and visualized at various angles. OMNIPAQUE, 350 MG, 150ML 150ML used . 10:14:02 contrast and 30 PARADISE INDEFLATOR added. 10:14:45 HR=73 bpm, ADHC=315/81 mmhg, SpO2=93.0 %, Resp=14 B/min, Pain=0, Roni=10, Perera=2 A SHEATH, FR6 TERUMO (10CM) FR 6 was exchanged in the Fem Art (right). This was necessary in or latricia to 10:14:54 accomodate a larger catheter. 5700 units HEPARIN given in lab by Jennfier Gonzáles, TAMIA in Left Forearm via Peripheral IV. Order ed by Jake, 10:15:12 Jose Carlos. After removing the current catheter a EBU 3.5 Z2 GUIDE CATHETER FR 6 was advanced over a WIRE, EXCHANGE 10:18:33 260CM 3MMJ 260CM. 10:19:46 HR=71 bpm, SQLK=433/88 mmhg, SpO2=94.0 %, Resp=14 B/min, Pain=0, Roni=10, Perera=2 10:23:57 A WIRE, BALANCE MIDDLEWEIGHT 190CM 190CM was inserted via Fem Art (right). 10:25:36 HR=71 bpm, OMVY=783/80 mmhg, SpO2=93.0 %, Resp=15 B/min, Pain=0, Roni=10, Perera=2 10:26:41 Interventional wire has crossed the lesion 10:27:51 Activated Clotting Time Drawn A BALLOON, 2.5 8MM EMERGE MR 2.5 8MM was inserted over WIRE, BALANCE MIDDLEWEIGHT 190CM 190CM v ia the 10:29:35 CIRC Mid. 10:29:48 HR=74 bpm, RJRU=137/84 mmhg, SpO2=95 %, Resp=15 B/min, Pain=0, Roni=10, Perera=2 A BALLOON, 2.5 8MM EMERGE MR 2.5 8MM over a WIRE, HYDROSTEER 150CM ANGLED GLIDE 150CM in the CI RC Mid 10:29:53 was inflated using a 30 PARADISE INDEFLATOR at 14 paradise for 40 sec. 10:31:21 Balloon Removed. 2000 units HEPARIN given in lab by Jennifer Gonzáles RN in Left Forearm via Peripheral IV. Order ed by Jake, 10:33:02 Jose Carlos. 10:33:13 ACT (Normal Range 90-180) = 255 10:35:34 HR=78 bpm, HWWM=233/75 mmhg, SpO2=93.0 %, Resp=15 B/min, Pain=0, Roni=10, Perera=2 10:39:52 HR=74 bpm, UCKX=096/81 mmhg, SpO2=93.0 %, Resp=15 B/min, Pain=0, Roni=10, Perear=2 A STENT, 2.75 12 RESOLUTE INTEGRITY RX 2.75 12 was advanced through a EBU 3.5 Z2 GUIDE CATHETER FR 6 over 10:39:57 a WIRE, HYDROSTEER 150CM ANGLED GLIDE 150CM. A STENT, 2.75 12 RESOLUTE INTEGRITY RX 2.75 12 was deployed using a 30 PARADISE INDEFLATOR at 9 atmo spheres for 10:41:59 30 seconds in the CIRC Mid. 10:44:11 Delivery device removed 10:44:55 HR=76 bpm, VGOD=958/84 mmhg, SpO2=94.0 %, Resp=15 B/min, Pain=0, Roni=10, Perera=2 A BALLOON, 2.75 X 8MM NC EUPHORA 8MM was inserted over WIRE, BALANCE MIDDLEWEIGHT 190CM 190CM v ia the 10:47:26 CIRC Mid. A BALLOON, 2.75 X 8MM NC EUPHORA 8MM over a WIRE, BALANCE MIDDLEWEIGHT 190CM 190CM in the CIRC Mid 10:48:08 was inflated using a 30 PARADISE INDEFLATOR at 16 paradise for 30 sec. A BALLOON, 2.75 X 8MM NC EUPHORA 8MM over a WIRE, BALANCE MIDDLEWEIGHT 190CM 190CM in the CIRC Mid 10:49:04 was inflated using a 30 PARADISE INDEFLATOR at 14 paradise for 10 sec. 10:49:46 Balloon Removed. 10:49:52 HR=78 bpm, YLZO=958/92 mmhg, SpO2=95.0 %, Resp=14 B/min, Pain=0, Roni=10, Perera=2 10:52:24 Activated Clotting Time Drawn 10:53:35 Wire removed 10:55:21 A WIRE, EXCHANGE 260CM 3MMJ 260CM was inserted via Fem Art (right). 10:55:36 HR=77 bpm, MITE=609/89 mmhg, SpO2=95 %, Resp=15 B/min, Pain=0, Roni=10, Perera=2 10:55:48 Catheter was removed Radial Compression Device Used. 10 mLs of air placed in BAND, RADIAL COMPRESSION TR SHORT 24 2 4CM. Affected 10:56:05 hand 94 % O2 saturation. 10:59:47 ACT (Normal Range 90-180) = 268 10:59:54 HR=80 bpm, AVJZ=146/80 mmhg, SpO2=94 %, Resp=13 B/min, Pain=0, Roni=10, Perera=2 11:00:23 In the Fem Art (right) the SHEATH, FR6 TERUMO (10CM) FR [address] by Jam Isaac RCIS(BS). 11:01:21 Case End 11:01:22 Catheter(s) removed without difficulty 11:01:26 Sterile dressing applied to site 11:01:35 No case complications noted. 11:01:41 Cine recording checked. 11:02:14 Bedside Report will be given. 11:02:17 A Left Heart Cath was performed. 11:04:56 HR=78 bpm, YRBA=672/75 mmhg, Resp=29 B/min 11:05:00 600 mg PLAVIX given in lab by Jennifer Gonzáles RN via Oral. Ordered by Jose Carlos Joseph. Assessment: Final Case, HR=84 BPM, JGGI=627/75 mmhg, Edema=None, Color=Normal, Skin = Warm, Dr y Right Pulses: Irving Ped=2, Femoral=2, Radial=2 11:07:21 Left Pulses: Irving Ped=2, Femoral=2 Neurological: State=Alert, Ox3, HAGAN Respiration: Resp=15 B/min, SpO2=95 %, O2=4 lpm 11:07:23 Vitals capture stopped. 11:10:24 Patient moved to [facility] End Study - Contrast Media Used In Study Contrast Total Opened (mL) Total Used (mL) Total Wasted (mL) Omnipaque 125 125 0 End Study - Maximum Contrast Load Max Contrast Load (mL) 673.7 End Study - Radiation Exposure Fluoro Time (minutes) 10.6 End Study - Patient Disposition Complications Transferred To Telemetry Bed
[2017-03-07] MEDS ORDERED: SODIUM CHLOR 0.9% 250 ML INJ 250 ML IV PRN (11:30)
[2017-03-07] MEDS ORDERED: oxyCODONE/ACETAMINOPHEN 5 MG/325 MG TAB PO PRN (11:30)
[2017-03-07] MEDS ORDERED: ACETAMINOPHEN 325 MG TAB PO PRN (11:30)
[2017-03-07] MEDS ORDERED: MISC INFORMATION XX ONE ×2 (11:30)
[2017-03-07] MEDS ORDERED: ATROPINE SULFATE 1 MG/ML VIAL IV PRN (11:30)
--- NOTE | 2017-03-07 12:36 | HHI.PR ---
Subjective Remarks had cardiac cath earlier today. now is comfortable with no chest pain or sob. Objective Vitals Vital Signs Date Time Temp Pulse Resp B/P Pulse Ox O2 Delivery O2 Flow Rate FiO2 03/07/17 08:16 64 03/07/17 08:00 92 Nasal Cannula 2.00 03/07/17 07:26 97.5 70 20 176/73 92 166/80 03/07/17 03:17 97.7 77 18 163/72 95 03/06/17 23:07 98.6 73 18 166/73 92 156/72 03/06/17 20:20 94 High Flow Nasal Cannula 2.00 03/06/17 20:00 82 03/06/17 19:45 98.6 73 18 106/56 93 03/06/17 19:00 94 Nasal Cannula 2.00 03/06/17 16:00 97.8 74 20 158/60 94 03/06/17 16:00 94 Nasal Cannula 2.00 03/06/17 12:57 93 2.00 I/O 03/06/17 03/06/17 03/06/17 03/07/17 03/07/17 03/07/17 07:00 15:00 23:00 07:00 15:00 23:00 Intake Total 200 ml 960 ml 240 ml 0 ml Output Total 700 ml 500 ml 500 ml Balance -500 ml 960 ml -260 ml -500 ml Intake Oral 200 ml 960 ml 240 ml 0 ml Output Urine Total 700 ml 500 ml 500 ml # Voids 3 # Bowel Movements 0 1 0 0 Imaging Last Impressions Myocardial Perfusion Scan Nuc Med 03/05/17 0000 Signed Impressions: Service Date/Time: Sunday, March 05, 2017 16:29 - CONCLUSION: Moderate volume of moderately reversible ischemia. Fairly severe LV dysfunction. RISK CATEGORY: High (>3%% Annual Mortality Rate) Brian Brewster MD Chest X-Ray 03/02/17 0914 Signed Impressions: Service Date/Time: Thursday, March 02, 2017 09:22 - CONCLUSION: Mild opacity at the lung bases could represent atelectasis or chronic interstitial lung disease. Otherwise, no acute finding is identified. Brian York MD Objective Remarks GENERAL: This is a well-nourished, well-developed patient, in no apparent distress. CARDIOVASCULAR: Regular rate and regular rhythm without murmurs, gallops, or rubs. RESPIRATORY: better air entry bilaterally with no wheezing. GASTROINTESTINAL: Abdomen soft, non-tender, nondistended. Normal, active bowel sounds MUSCULOSKELETAL: Extremities without clubbing, cyanosis, or edema. NEURO: Alert & Oriented x4 to person, place, time, situation. Moves all ext x4 Procedures cardiac cath. Medications and IVs Current Medications Albuterol/ Ipratropium (Duoneb Neb) 3 ampule STK-MED ONCE .ROUTE ; Start at 09:14; Stop 03/02/17 at 09:15; Status DC Methylprednisolone Sodium Succinate (SoluMEDROL INJ) 125 mg ONCE ONCE IVP Last administered on 03/02/17 09:39; Start 03/02/17 at 09:15; Stop 03/02/17 at 09: 22; Status DC Albuterol/ Ipratropium (Duoneb Neb) 1 ampule Q15M INH Last administered on 09:46; Start 03/02/17 at 09:15; Stop 03/02/17 at 09:51; Status DC Dextrose (D50w (Vial) Inj) 50 ml UNSCH PRN IV HYPOGLYCEMIA-SEE COMMENTS; Start 03/02/17 at 11:30; Stop 03/02/17 at 16:47; Status DC Glucagon (Glucagon Inj) 1 mg UNSCH PRN OTHER HYPOGLYCEMIA-SEE COMMENTS; Start 03/02/17 at 11:30; Stop 03/02/17 at 16:47; Status DC Insulin Aspart (NovoLOG SUPPLEMENTAL SCALE) 1 ACHS SLIDING SCALE SQ Last administered on 03/02/17 15:57; Start 03/02/17 at 16:00; Stop 03/02/17 at 16:47; Status DC Albuterol/ Ipratropium (Duoneb Neb) 1 ampule Q4HR NEB NEB Last administered on 03/06/17 11:08; Start 03/02/17 at 12:00; Stop 03/06/17 at 12:00; Status DC Albuterol Sulfate 1.25 mg 1.25 mg Q2HR NEB PRN NEB SHORTNESS OF BREATH; Start 03/02/17 at 11:30 Levofloxacin/ Dextrose (Levaquin 750 Mg Premix Inj) 150 ml @ 100 mls/hr ONCE ONCE IV Last administered on 03/02/17 12:18; Start 03/02/17 at 11:30; Stop at 12:59; Status DC Methylprednisolone Sodium Succinate 40 mg 40 mg Q8HR IV PUSH Last administered on 03/03/17 05:22; Start 03/02/17 at 14:00; Stop 03/03/17 at 09:28; Status DC Levofloxacin/ Dextrose (Levaquin 500 Mg Premix Inj) 100 ml @ 100 mls/hr Q24H IV Last administered on 03/07/17 07:53; Start 03/03/17 at 09:00 Aspirin (Aspirin Chew) 81 mg BID CHEW Last administered on 03/07/17 07:29; Start 03/02/17 at 21:00 Lisinopril (Prinivil) 20 mg BID PO Last administered on 03/07/17 07:29; Start 03/02/17 at 21:00 Pantoprazole Sodium (Protonix) 40 mg Q12HR PO Last administered on 03/07/17 07 :29; Start 03/02/17 at 21:00 Tiotropium Rock (Spiriva Inh) 18 mcg DAILY INH Last administered on 07:33; Start 03/03/17 at 09:00 Insulin Detemir (Levemir Inj) 15 units HS SQ Last administered on 03/06/17 21: 46; Start 03/02/17 at 21:00 Influenza Virus Vaccine (Flu (Quadrivalent) Vaccine Inj) 0.5 ml ONCE ONCE IM ; Start 03/03/17 at 10:00; Stop 03/03/17 at 10:01; Status Cancel Dextrose (D50w (Vial) Inj) 50 ml UNSCH PRN IV PUSH HYPOGLYCEMIA - SEE COMMENTS ; Start 03/02/17 at 16:45 Glucagon (Glucagon Inj) 1 mg UNSCH PRN OTHER HYPOGLYCEMIA-SEE COMMENTS; Start 03/02/17 at 16:45 Insulin Aspart (NovoLOG SUPPLEMENTAL SCALE) 1 ACHS SLIDING SCALE SQ Last administered on 03/07/17 05:58; Start 03/02/17 at 21:00 Methylprednisolone Sodium Succinate (SoluMEDROL INJ) 20 mg Q12HR IV PUSH Last administered on 03/07/17 07:30; Start 03/03/17 at 21:00 Metoprolol Tartrate (Lopressor) 25 mg BID PO ; Start 03/04/17 at 09:00; Stop 03/04 at 09:00; Status DC Metoprolol Tartrate 25 mg 25 mg BID PO Last administered on 03/05/17 08:43; Start 03/04/17 at 07:30; Stop 03/05/17 at 16:16; Status DC Diltiazem HCl/ Sodium Chloride (Cardizem Inj/NS Inj) 125 ml @ 0 mls/hr TITRATE IV Last administered on 03/05/17 03:58; Start 03/04/17 at 15:00 Metoprolol Tartrate (Lopressor) 25 mg QID PO Last administered on 03/07/17 07: 30; Start 03/05/17 at 18:00 Regadenoson (Lexiscan Inj) 0.4 mg STK-MED ONCE .ROUTE Last administered on 03/06 09:27; Start 03/06/17 at 09:27; Stop 03/06/17 at 09:28; Status DC Amlodipine Besylate 5 mg 5 mg DAILY PO Last administered on 03/07/17 07:29; Start 03/06/17 at 18:45; Stop 03/07/17 at 11:25; Status DC Heparin Sodium/ Sodium Chloride (Heparin-NS/Pf Inj) 500 ml @ As Directed STK- MED ONCE .ROUTE ; Start 03/07/17 at 09:12; Stop 03/07/17 at 09:13; Status DC Midazolam HCl (Versed Inj) 2 mg STK-MED ONCE .ROUTE ; Start 03/07/17 at 09:20; Stop 03/07/17 at 09:21; Status DC Fentanyl Citrate (fentaNYL INJ) 100 mcg STK-MED ONCE .ROUTE ; Start 03/07/17 at 09:20; Stop 03/07/17 at 09:21; Status DC Verapamil HCl (Isoptin Inj) 5 mg STK-MED ONCE .ROUTE ; Start 03/07/17 at 09:20; Stop 03/07/17 at 09:21; Status DC Heparin Sodium (Porcine) 73985 units 10,000 units STK-MED ONCE .ROUTE ; Start at 09:20; Stop 03/07/17 at 09:21; Status DC Nitroglycerin 5 ml @ As Directed STK-MED ONCE .ROUTE ; Start 03/07/17 at 09:20; Stop 03/07/17 at 09:21; Status DC Heparin Sodium/ Sodium Chloride (Heparin-NS/Pf Inj) 500 ml @ As Directed STK- MED ONCE .ROUTE ; Start 03/07/17 at 10:03; Stop 03/07/17 at 10:04; Status DC Clopidogrel Bisulfate (Plavix) 600 mg STK-MED ONCE .ROUTE ; Start 03/07/17 at 10 :35; Stop 03/07/17 at 10:36; Status DC Heparin Sodium (Porcine) (Heparin Inj) 10,000 units STK-MED ONCE .ROUTE ; Start 03/07/17 at 10:35; Stop 03/07/17 at 10:36; Status DC Amlodipine Besylate (Norvasc) 10 mg DAILY PO ; Start 03/08/17 at 09:00 Miscellaneous Information 1 ONCE ONCE XX ; Start 03/07/17 at 11:30; Stop at 11:31; Status DC Acetaminophen (Tylenol) 325 mg Q4H PRN PO PAIN SCALE 1 TO 6; Start 03/07/17 at 11:30 Oxycodone/ Acetaminophen (Percocet 5-325 Mg) 1 tab Q4H PRN PO PAIN SCALE 7 to 10; Start 03/07/17 at 11:30 Clopidogrel Bisulfate (Plavix) 75 mg DAILY PO ; Start 03/08/17 at 09:00 Miscellaneous Information 1 ONCE ONCE XX ; Start 03/07/17 at 11:30; Stop at 11:30; Status DC Atropine Sulfate 0.5 mg 0.5 mg UNSCH PRN IV VAGAL REPONSE; Start 03/07/17 at 11 :30 Sodium Chloride (NS 250 ml Inj) 250 ml @ 500 mls/hr ONCE PRN IV VAGAL REPONSE ; Start 03/07/17 at 11:30; Stop 03/08/17 at 11:29 Atorvastatin Calcium (Lipitor) 40 mg HS PO ; Start 03/07/17 at 21:00 Iohexol (OMNIPAQUE 350 INJ (Integrated Specialist)) 100 ml STK-MED ONCE OTHER ; Start at 09:42; Stop 03/07/17 at 12:29; Status DC Iohexol (OMNIPAQUE 350 INJ (Integrated Specialist)) 50 ml STK-MED ONCE OTHER ; Start at 09:42; Stop 03/07/17 at 12:29; Status DC A/P Assessment and Plan A/P - acute hypoxemic respiratory failure/ acute COPD exacerbation-improved. keep on oxygen to keep O2 sat >90%- continue neb treatment- switch to po prednisone. patient is oxygen-dependent. -atrial fibrillation -with abnormal stress test- HR better-; continue lopressor - cardiology consult appreciated. s/p cardiac cath with stent placement-continue aspirin,plavix and statin. declined anticoagulation; says that she was on Eliquis last year and developed internal bleeding. -diabetes mellitus; resumed long-acting insulin- continue accu-check with SSI blood sugar levels expected to improve as steroids being tapered down. -hypertension; resumed lisinopril- resume metoprolol.continue amlodipine. -anemia- chronic- f/u as outpatient. -DVT prophylaxis with SCD's Discharge Planning dc home tomorrow if stable- d/w . Jasbir Moffett MD Mar 07, 2017 12:36
--- NOTE | 2017-03-07 12:55 | PD.CARD.PN ---
Subjective Subjective Remarks Post-cath doing well No chest pain/SOB Objective Medications Current Medications Medications (Trade) Dose Ordered Sig/Sushil Route Start Time Stop Time Status Last Admin (Levaquin 500 Mg Premix Inj) 100 ml @ 100 mls/hr Q24H IV 03/03/17 09:00 03/07/17 07:53 (Aspirin Chew) 81 mg BID CHEW 03/02/17 21:00 03/07/17 07:29 (Prinivil) 20 mg BID PO 03/02/17 21:00 03/07/17 07:29 (Protonix) 40 mg Q12HR PO 03/02/17 21:00 03/07/17 07:29 (Spiriva Inh) 18 mcg DAILY INH 03/03/17 09:00 03/07/17 07:33 (Levemir Inj) 15 units HS SQ 03/02/17 21:00 03/06/17 21:46 (D50w (Vial) Inj) 50 ml UNSCH PRN IV PUSH 03/02/17 16:45 Glucagon 1 mg 1 mg UNSCH PRN OTHER 03/02/17 16:45 (Cardizem Inj/NS Inj) 125 ml @ 0 mls/hr TITRATE IV 03/04/17 15:00 03/05/17 03:58 (Lopressor) 25 mg QID PO 03/05/17 18:00 03/07/17 07:30 (Norvasc) 10 mg DAILY PO 03/08/17 09:00 (Tylenol) 325 mg Q4H PRN PO 03/07/17 11:30 (Percocet 5-325 Mg) 1 tab Q4H PRN PO 03/07/17 11:30 (Plavix) 75 mg DAILY PO 03/08/17 09:00 Atropine Sulfate 0.5 mg 0.5 mg UNSCH PRN IV 03/07/17 11:30 (NS 250 ml Inj) 250 ml @ 500 mls/hr ONCE PRN IV 03/07/17 11:30 03/08/17 11:29 (Lipitor) 40 mg HS PO 03/07/17 21:00 (Deltasone) 40 mg DAILY PO 03/08/17 09:00 Vital Signs / I&O Vital Signs Date Time Temp Pulse Resp B/P Pulse Ox O2 Delivery O2 Flow Rate FiO2 03/07/17 08:16 64 03/07/17 08:00 92 Nasal Cannula 2.00 03/07/17 07:26 97.5 70 20 176/73 92 166/80 03/07/17 03:17 97.7 77 18 163/72 95 03/06/17 23:07 98.6 73 18 166/73 92 156/72 03/06/17 20:20 94 High Flow Nasal Cannula 2.00 03/06/17 20:00 82 03/06/17 19:45 98.6 73 18 106/56 93 03/06/17 19:00 94 Nasal Cannula 2.00 03/06/17 16:00 97.8 74 20 158/60 94 03/06/17 16:00 94 Nasal Cannula 2.00 03/06/17 12:57 93 2.00 I/O 03/06/17 03/06/17 03/06/17 03/07/17 03/07/17 03/07/17 07:00 15:00 23:00 07:00 15:00 23:00 Intake Total 200 ml 960 ml 240 ml 0 ml Output Total 700 ml 500 ml 500 ml Balance -500 ml 960 ml -260 ml -500 ml Intake Oral 200 ml 960 ml 240 ml 0 ml Output Urine Total 700 ml 500 ml 500 ml # Voids 3 # Bowel Movements 0 1 0 0 Physical Exam GENERAL: NAD, AAOx3 SKIN: Warm and dry. HEAD: Atraumatic. Normocephalic. EYES: Pupils equal and round. No scleral icterus. No injection or drainage. ENT: No nasal bleeding or discharge. Mucous membranes pink and moist. NECK: Trachea midline. No JVD. CARDIOVASCULAR: Regular rate and rhythm. RESPIRATORY: No accessory muscle use. Decreased breath sounds bilaterally GASTROINTESTINAL: Abdomen soft, non-tender, nondistended. Hepatic and splenic margins not palpable. MUSCULOSKELETAL: Extremities without clubbing, cyanosis, or edema. No obvious deformities. NEUROLOGICAL: Awake and alert. No obvious cranial nerve deficits. Motor grossly within normal limits. Five out of 5 muscle strength in the arms and legs. Normal speech. PSYCHIATRIC: Appropriate mood and affect; insight and judgment normal. Assessment and Plan Problem List: (1) COPD with acute exacerbation (2) Atrial fibrillation with tachycardic ventricular rate (3) History of coronary artery disease (4) DM (diabetes mellitus), type 2, uncontrolled (5) HTN (hypertension) Assessment and Plan 1) Presented with COPD exacerbation 2) AFib with RVR now controlled, con't BB Does not want anti-coagulant due to previous GI bleed 3) HTN, added Norvasc, increased to 10mg daily 4) 2D echo pending 5) Abnormal stress test/CP s/p MARLEE (2.75x12) to LCx LAD with moderate residual disease and jailed diagonal, will treat medically for now If further chest pain, will set up for LAD/Diag intervention ASA/Plavix 6) Will follow up with Dr. Keith on discharge Jose Carlos Joseph DO Mar 07, 2017 12:55
[2017-03-07] MEDS ORDERED: ATORVASTATIN 40 MG TAB PO SCH (21:00)
--- NOTE | 2017-03-07 22:26 | MA ---
cc: JOSE CARLOS VAUGHAN DO DATE OF PROCEDURE March 07, 2017 PROCEDURE Left heart catheterization, coronary angiogram, Resolute drug-eluting stent (2.75 x 12) to proximal circumflex, moderate sedation 75 minutes. PREPROCEDURE DIAGNOSIS Chest pain, abnormal stress test (intermediate risk). POSTPROCEDURE DIAGNOSIS Coronary artery disease status post Resolute drug-eluting stent (2.75 x 12) to proximal left circumflex, residual moderate LAD disease with JL diagonal. MEDICATIONS Versed 0.5 milligrams. 1. Fentanyl 25 micrograms. 2. Heparin 11,500 units. 3. Verapamil 2.5 milligrams. 4. Nitro 200 micrograms. 5. Plavix 600 milligrams. CONTRAST 125 cc. FLUOROSCOPY 10.6 minutes. MODERATE SEDATION 75 minutes. ESTIMATED BLOOD LOSS 10 cc. PROCEDURAL SUMMARY Patricia Hughes is as a pleasant 81-year-old female who originally presented to [facility] on March 02, 2017 due to COPD exacerbation. She was found to be in atrial fibrillation and heart rates have been controlled with beta keely therapy. She did have an episode of chest pain and so stress test was ordered. During this she was found to have inferolateral and lateral ischemia. Because of this she was recommended cardiac catheterization. The risks, benefits and alternatives were explained to her and she consented as such. She was brought to the lab and prepped in the usual sterile fashion. Right radial artery was accessed using a modified Seldinger technique and placement of a 5/6 Cam[place]onian slender sheath. The JR-4 catheter was advanced to the mid forearm with mild resistance. Angiogram shows an overall small radial with a moderate amount of spasm. I attempted to give a dose of nitroglycerin intra-arterial and manage through with a Glidewire but the resistance was too much and it was felt that the radial approach should be abandoned. Right femoral artery was accessed using a modified Seldinger technique and placement of a 5-Cameroonian sheath. This was easily aspirated and flushed. The JR-4 was advanced over a J-wire to the ascending aorta and across the aortic valve for measurement of left ventricular pressure. JR-4 was then pulled back across the aortic valve showing no significant gradient of aortic stenosis. JR-4 was used for selective angiography of the right coronary system. JR-4 was then exchanged for a JL-4 which was used for selective angiography of the left coronary system. Please see below for interventional notes. Postprocedure, a radial band was placed across the arteriotomy site for hemostasis. Right femoral sheath was sutured in place for a plan to remove once ACTs were appropriate and pressure held for hemostasis. The patient was given 600 milligrams of Plavix. 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 FINDINGS Left main normal size vessel with 20% disease noted distally. It trifurcates into an LAD, ramus and left circumflex. 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 Previous stent is noted with proximal portion of it having 50% in-stent restenosis compared to the distal portion of it as the proximal portion is somewhat aneurysmal. In the middle of the stent is a diagonal branch which appears to have a probable 99% occlusion at the ostium jailed by the stent. It gives off one other diagonal distally which has no significant disease. Ramus extremely small vessel with no appreciable disease. Circumflex normal-size vessel with a proximal lesion of 95%. It gives off one major obtuse marginal with diffuse 40% disease. RCA normal-size vessel with diffuse 30% disease throughout but no significant obstruction. LVEDP 9. INTERVENTION Ms. Hughes appears to have severe disease in the left circumflex which is felt to be the culprit vessel. She does have moderate disease in the LAD which is in-stent restenosis and off of this a 99% ostial diagonal disease which is most likely jailed from the stent. It was felt that intervention should be done on the left circumflex as most of the ischemia was noted laterally and not anterior anterolaterally. An EBU 3.5 guide catheter was engaged in the left main. The patient was given heparin for additional anticoagulation. A BMW wire was advanced into the obtuse marginal. A compliant balloon (2.5 x 8) was inflated over the lesion. A Resolute drug-eluting stent (2.75 x 12) was then inflated over the lesion. A noncompliant balloon (2.75 x 8) was then inflated in both the proximal and distal portion of the stent. BMW wire was removed and post angiography shows a well opposed stent with 10% residual stenosis in the midportion. No dissection or perforations were noted. EBU catheter was removed over a J-wire. IMPRESSION 1. Chest pain concerning for coronary insufficiency. 2. Abnormal stress test (intermediate risk) with inferolateral and lateral ischemia. 3. Coronary artery disease status post Resolute drug-eluting stent (2.75 x 12) to the proximal circumflex which was felt to be the culprit vessel. Residual moderate disease of the LAD with in-stent restenosis as well as a jailed diagonal. 4. Atrial fibrillation not on anticoagulation per the patient's request. RECOMMENDATIONS 1. Ms. Hughes underwent PCI of her left circumflex and will be placed on aspirin and Plavix. 2. She does have residual moderate disease of the LAD with a jailed diagonal and I feel at this time this should be treated medically as she showed no anterior ischemia on her stress test. If she does have further chest pain whether inpatient or outpatient this could be considered to be intervened on although my concern is the diagonal may be lost during this as there is significant stenosis of the ostium. 3. She will be watched overnight and if stable discharge in the morning. Of note, she does have an echocardiogram pending at this time and this should be resulted before discharge. 4. She has been hypertensive and overall needs better blood pressure management. Norvasc has been increased to 10 milligrams daily. 5. Upon discharge she will follow up with Dr. Keith in the office. Thank you for allowing me to see Patricia Hughes. If there are any questions please do not hesitate to call. Jose Carlos Vaughan DO VGP/EO /7:02 PM /10:05 PM
[2017-03-07] MEDS: INSULIN DETEMIR 100 UNITS/ML VIAL SQ SCH (22:46)
[2017-03-08] VITALS (16 sets, daily range): BP systolic 127–133; BP diastolic 52–75; PULSE 56–97; RESP 16–20; TEMP 98.1–98.9; O2SAT 91–96
[2017-03-08 04:31] LABS: AUTOMATED NEUTROPHIL # 9.1 TH/MM3 (1.8-7.7); BASOPHIL % 0.2 % (0.0-2.0); EOSINOPHIL # 0.2 TH/MM3 (0-0.4); EOSINOPHIL % 1.4 % (0.0-4.0); HEMATOCRIT 32.5 % (35.0-46.0); LYMPH % 16.2 % (9.0-44.0); MEAN CELL VOLUME 80.5 FL (80.0-100.0); MEAN CORPUSCULAR HEMOGLOBIN 25.5 PG (27.0-34.0); MEAN CORPUSCULAR HGB CONC 31.7 % (32.0-36.0); MONO % 7.4 % (0.0-8.0); NEUT % 74.8 % (16.0-70.0); PLATELET COUNT 345 TH/MM3 (150-450); RED BLOOD COUNT 4.04 MIL/MM3 (4.00-5.30); RED CELL DISTRIBUTION WIDTH 15.4 % (11.6-17.2); WHITE BLOOD COUNT 12.1 TH/MM3 (4.0-11.0)
[2017-03-08 04:35] LABS: HEMO FLAGS AUTO DIFF
[2017-03-08 04:54] LABS: BICARBONATE 31.7 MEQ/L (21.0-32.0); POTASSIUM 3.8 MEQ/L (3.5-5.1)
[2017-03-08 05:25] LABS: PLATELET ESTIMATE SMEAR NORMAL (NORMAL); PLATELET MORPHOLOGY NORMAL (NORMAL); SCAN/DIFF AUTO DIFF CONFIRMED
[2017-03-08] MEDS: MEDIUM DOSE INSULIN NOVOLOG SUPPLEMENTAL SCALE SQ SCH ×2 (05:30→10:58)
--- NOTE | 2017-03-08 07:54 | HHI.PR ---
Subjective Remarks resting comfortably with no distress. denies chest pain or sob. no new complaints. d/w the RN and no acute issues over night. Objective Vitals Vital Signs Date Time Temp Pulse Resp B/P Pulse Ox O2 Delivery O2 Flow Rate FiO2 03/08/17 06:00 60 03/08/17 05:54 98.7 69 16 130/75 96 03/08/17 05:00 68 03/08/17 04:00 58 03/08/17 03:00 58 03/08/17 02:00 66 03/08/17 01:00 68 03/08/17 00:46 98.3 75 16 130/75 95 03/08/17 00:00 66 03/07/17 23:00 70 03/07/17 22:00 74 03/07/17 21:00 78 03/07/17 20:20 98.3 74 16 143/84 95 03/07/17 20:20 95 Nasal Cannula 2.00 03/07/17 20:00 74 03/07/17 19:00 73 03/07/17 18:01 74 03/07/17 17:01 72 03/07/17 16:00 80 03/07/17 15:01 98.4 80 18 154/73 94 03/07/17 15:00 84 03/07/17 14:00 80 03/07/17 13:00 98.2 81 18 109/56 94 Manual Cuff/Palpation 03/07/17 13:00 80 03/07/17 08:16 64 03/07/17 08:00 92 Nasal Cannula 2.00 I/O 03/07/17 03/07/17 03/07/17 03/08/17 03/08/17 03/08/17 07:00 15:00 23:00 07:00 15:00 23:00 Intake Total 0 ml 1240 ml 360 ml Output Total 500 ml 400 ml 0 ml Balance -500 ml 840 ml 360 ml Intake Oral 0 ml 240 ml 360 ml IV Total 1000 ml Output Urine Total 500 ml 400 ml Stool Total 0 ml # Voids 2 3 # Bowel Movements 0 0 Result Diagram: 03/08/17 0349 03/08/17 0349 Imaging Last Impressions Myocardial Perfusion Scan Nuc Med 03/05/17 0000 Signed Impressions: Service Date/Time: Sunday, March 05, 2017 16:29 - CONCLUSION: Moderate volume of moderately reversible ischemia. Fairly severe LV dysfunction. RISK CATEGORY: High (>3%% Annual Mortality Rate) Brian Brewster MD Chest X-Ray 03/02/17913 Signed Impressions: Service Date/Time: Thursday, March 02, 2017 09:22 - CONCLUSION: Mild opacity at the lung bases could represent atelectasis or chronic interstitial lung disease. Otherwise, no acute finding is identified. Brian York MD Objective Remarks GENERAL: This is a well-nourished, well-developed patient, in no apparent distress. CARDIOVASCULAR: Regular rate and regular rhythm without murmurs, gallops, or rubs. RESPIRATORY: better air entry bilaterally with no wheezing. GASTROINTESTINAL: Abdomen soft, non-tender, nondistended. Normal, active bowel sounds MUSCULOSKELETAL: Extremities without clubbing, cyanosis, or edema. NEURO: Alert & Oriented x4 to person, place, time, situation. Moves all ext x4 Procedures cardiac cath. Medications and IVs Current Medications Albuterol/ Ipratropium (Duoneb Neb) 3 ampule STK-MED ONCE .ROUTE ; Start at 09:14; Stop 03/02/17 at 09:15; Status DC Methylprednisolone Sodium Succinate (SoluMEDROL INJ) 125 mg ONCE ONCE IVP Last administered on 03/02/17 09:39; Start 03/02/17 at 09:15; Stop 03/02/17 at 09: 22; Status DC Albuterol/ Ipratropium (Duoneb Neb) 1 ampule Q15M INH Last administered on 09:46; Start 03/02/17 at 09:15; Stop 03/02/17 at 09:51; Status DC Dextrose (D50w (Vial) Inj) 50 ml UNSCH PRN IV HYPOGLYCEMIA-SEE COMMENTS; Start 03/02/17 at 11:30; Stop 03/02/17 at 16:47; Status DC Glucagon (Glucagon Inj) 1 mg UNSCH PRN OTHER HYPOGLYCEMIA-SEE COMMENTS; Start 03/02/17 at 11:30; Stop 03/02/17 at 16:47; Status DC Insulin Aspart (NovoLOG SUPPLEMENTAL SCALE) 1 ACHS SLIDING SCALE SQ Last administered on 03/02/17 15:57; Start 03/02/17 at 16:00; Stop 03/02/17 at 16:47; Status DC Albuterol/ Ipratropium (Duoneb Neb) 1 ampule Q4HR NEB NEB Last administered on 03/06/17 11:08; Start 03/02/17 at 12:00; Stop 03/06/17 at 12:00; Status DC Albuterol Sulfate 1.25 mg 1.25 mg Q2HR NEB PRN NEB SHORTNESS OF BREATH; Start 03/02/17 at 11:30 Levofloxacin/ Dextrose (Levaquin 750 Mg Premix Inj) 150 ml @ 100 mls/hr ONCE ONCE IV Last administered on 03/02/17 12:18; Start 03/02/17 at 11:30; Stop at 12:59; Status DC Methylprednisolone Sodium Succinate 40 mg 40 mg Q8HR IV PUSH Last administered on 03/03/17 05:22; Start 03/02/17 at 14:00; Stop 03/03/17 at 09:28; Status DC Levofloxacin/ Dextrose (Levaquin 500 Mg Premix Inj) 100 ml @ 100 mls/hr Q24H IV Last administered on 03/07/17 07:53; Start 03/03/17 at 09:00 Aspirin (Aspirin Chew) 81 mg BID CHEW Last administered on 03/07/17 22:37; Start 03/02/17 at 21:00 Lisinopril (Prinivil) 20 mg BID PO Last administered on 03/07/17 22:37; Start 03/02/17 at 21:00 Pantoprazole Sodium (Protonix) 40 mg Q12HR PO Last administered on 03/07/17 22 :36; Start 03/02/17 at 21:00 Tiotropium [place] (Spiriva Inh) 18 mcg DAILY INH Last administered on 07:33; Start 03/03/17 at 09:00 Insulin Detemir (Levemir Inj) 15 units HS SQ Last administered on 03/07/17 22: 46; Start 03/02/17 at 21:00 Influenza Virus Vaccine (Flu (Quadrivalent) Vaccine Inj) 0.5 ml ONCE ONCE IM ; Start 03/03/17 at 10:00; Stop 03/03/17 at 10:01; Status Cancel Dextrose (D50w (Vial) Inj) 50 ml UNSCH PRN IV PUSH HYPOGLYCEMIA - SEE COMMENTS ; Start 03/02/17 at 16:45 Glucagon (Glucagon Inj) 1 mg UNSCH PRN OTHER HYPOGLYCEMIA-SEE COMMENTS; Start 03/02/17 at 16:45 Insulin Aspart (NovoLOG SUPPLEMENTAL SCALE) 1 ACHS SLIDING SCALE SQ Last administered on 03/07/17 22:47; Start 03/02/17 at 21:00 Methylprednisolone Sodium Succinate (SoluMEDROL INJ) 20 mg Q12HR IV PUSH Last administered on 03/07/17 07:30; Start 03/03/17 at 21:00; Stop 03/07/17 at 12:34 ; Status DC Metoprolol Tartrate (Lopressor) 25 mg BID PO ; Start 03/04/17 at 09:00; Stop 03/04 at 09:00; Status DC Metoprolol Tartrate 25 mg 25 mg BID PO Last administered on 03/05/17 08:43; Start 03/04/17 at 07:30; Stop 03/05/17 at 16:16; Status DC Diltiazem HCl/ Sodium Chloride (Cardizem Inj/NS Inj) 125 ml @ 0 mls/hr TITRATE IV Last administered on 03/05/17 03:58; Start 03/04/17 at 15:00 Metoprolol Tartrate (Lopressor) 25 mg QID PO Last administered on 03/07/17 22: 38; Start 03/05/17 at 18:00 Regadenoson (Lexiscan Inj) 0.4 mg STK-MED ONCE .ROUTE Last administered on 03/06 09:27; Start 03/06/17 at 09:27; Stop 03/06/17 at 09:28; Status DC Amlodipine Besylate 5 mg 5 mg DAILY PO Last administered on 03/07/17 07:29; Start 03/06/17 at 18:45; Stop 03/07/17 at 11:25; Status DC Heparin Sodium/ Sodium Chloride (Heparin-NS/Pf Inj) 500 ml @ As Directed STK- MED ONCE .ROUTE Last administered on 03/07/17 09:12; Start 03/07/17 at 09:12; Stop 03/07/17 at 09:13; Status DC Midazolam HCl (Versed Inj) 2 mg STK-MED ONCE .ROUTE Last administered on 09:43; Start 03/07/17 at 09:20; Stop 03/07/17 at 09:21; Status DC Fentanyl Citrate (fentaNYL INJ) 100 mcg STK-MED ONCE .ROUTE Last administered on 03/07/17 09:44; Start 03/07/17 at 09:20; Stop 03/07/17 at 09:21; Status DC Verapamil HCl (Isoptin Inj) 5 mg STK-MED ONCE .ROUTE Last administered on 09:51; Start 03/07/17 at 09:20; Stop 03/07/17 at 09:21; Status DC Heparin Sodium (Porcine) 38637 units 10,000 units STK-MED ONCE .ROUTE Last administered on 03/07/17 09:51; Start 03/07/17 at 09:20; Stop 03/07/17 at 09:21 ; Status DC Nitroglycerin 5 ml @ As Directed STK-MED ONCE .ROUTE Last administered on 09:51; Start 03/07/17 at 09:20; Stop 03/07/17 at 09:21; Status DC Heparin Sodium/ Sodium Chloride (Heparin-NS/Pf Inj) 500 ml @ As Directed STK- MED ONCE .ROUTE Last administered on 03/07/17 10:03; Start 03/07/17 at 10:03; Stop 03/07/17 at 10:04; Status DC Clopidogrel Bisulfate (Plavix) 600 mg STK-MED ONCE .ROUTE Last administered on 03/07/17 11:05; Start 03/07/17 at 10:35; Stop 03/07/17 at 10:36; Status DC Heparin Sodium (Porcine) (Heparin Inj) 10,000 units STK-MED ONCE .ROUTE ; Start 03/07/17 at 10:35; Stop 03/07/17 at 10:36; Status DC Amlodipine Besylate (Norvasc) 10 mg DAILY PO ; Start 03/08/17 at 09:00 Miscellaneous Information 1 ONCE ONCE XX ; Start 03/07/17 at 11:30; Stop at 11:31; Status DC Acetaminophen (Tylenol) 325 mg Q4H PRN PO PAIN SCALE 1 TO 6; Start 03/07/17 at 11:30 Oxycodone/ Acetaminophen (Percocet 5-325 Mg) 1 tab Q4H PRN PO PAIN SCALE 7 to 10; Start 03/07/17 at 11:30 Clopidogrel Bisulfate (Plavix) 75 mg DAILY PO ; Start 03/08/17 at 09:00 Miscellaneous Information 1 ONCE ONCE XX ; Start 03/07/17 at 11:30; Stop at 11:30; Status DC Atropine Sulfate 0.5 mg 0.5 mg UNSCH PRN IV VAGAL REPONSE; Start 03/07/17 at 11 :30 Sodium Chloride (NS 250 ml Inj) 250 ml @ 500 mls/hr ONCE PRN IV VAGAL REPONSE ; Start 03/07/17 at 11:30; Stop 03/08/17 at 11:29 Atorvastatin Calcium (Lipitor) 40 mg HS PO Last administered on 03/07/17t 22:37 ; Start 03/07/17 at 21:00 Iohexol (OMNIPAQUE 350 INJ (Child Nutrition Director)) 100 ml STK-MED ONCE OTHER ; Start at 09:42; Stop 03/07/17 at 12:29; Status DC Iohexol (OMNIPAQUE 350 INJ (Child Nutrition Director)) 50 ml STK-MED ONCE OTHER ; Start at 09:42; Stop 03/07/17 at 12:29; Status DC Prednisone (Deltasone) 40 mg DAILY PO ; Start 03/08/17 at 09:00 A/P Assessment and Plan A/P - acute hypoxemic respiratory failure/ acute COPD exacerbation-improved. keep on oxygen to keep O2 sat >90%- continue neb treatment- switch to po prednisone. patient is oxygen-dependent. -atrial fibrillation -with abnormal stress test- HR better-; continue lopressor - cardiology consult appreciated. s/p cardiac cath with stent placement-continue aspirin,plavix and statin. declined anticoagulation; says that she was on Eliquis last year and developed internal bleeding. -diabetes mellitus; resumed long-acting insulin- continue accu-check with SSI blood sugar levels expected to improve as steroids being tapered off. -hypertension; resumed lisinopril- resumed metoprolol.continue amlodipine. -anemia- chronic- f/u as outpatient. -DVT prophylaxis with SCD's Discharge Planning likely dc home later today - after echo is resulted. see med list. f/u; pcp and cardiology. d/w the patient and RN. previously d/w . time spent 31 min. Jasbir Moffett MD Mar 08, 2017 07:54
[2017-03-08] MEDS ORDERED: AMLO5 PO (07:57)
[2017-03-08] MEDS ORDERED: ATOR40TA16 PO (07:57)
[2017-03-08] MEDS ORDERED: METF1000 PO (07:57)
[2017-03-08] MEDS ORDERED: PLAV75TA29 PO (07:57)
--- NOTE | 2017-03-08 07:58 | HHI.DS ---
Discharge Summary Admission Date Mar 02, 2017 at 12:10 Discharge Date: Mar 08, 2017 Admitting Diagnosis COPD acute exacerbation (1) COPD with acute exacerbation ICD Code: J44.1 Diagnosis: Principal (2) CAD (coronary artery disease) ICD Code: I25.10 Diagnosis: Principal (3) Atrial fibrillation ICD Code: I48.91 Diagnosis: Principal Procedures cardiac cath. Brief History - From Admission patient is a 81 y/o female with history of COPD -oxygen dependent, who presented to ER with worsening sob. she says that she's had sob for the past couple of days. this is associated with some dry cough. she denies any fever, chills or night sweats. she has a nebulizer at home but she says that she didn' t use it last night. at the time of my evaluation her pulse-ox dropped to 87 while she was trying to sit up on the bed.she says that her sob has slightly improved. CBC/BMP: 03/08/17 0349 03/08/17 0349 Significant Findings Laboratory Tests Test 03/08/17 03:49 White Blood Count 12.1 TH/MM3 (4.0-11.0) Hemoglobin 10.3 GM/DL (11.6-15.3) Hematocrit 32.5 % (35.0-46.0) Mean Corpuscular Hemoglobin 25.5 PG (27.0-34.0) Mean Corpuscular Hemoglobin 31.7 % Concent (32.0-36.0) Neutrophils (%) (Auto) 74.8 % (16.0-70.0) Neutrophils # (Auto) 9.1 TH/MM3 (1.8-7.7) Blood Urea Nitrogen 24 MG/DL (7-18) Estimat Glomerular Filtration 73 ML/MIN (>89) Rate Random Glucose 137 MG/DL (74-106) Imaging Last Impressions Myocardial Perfusion Scan Nuc Med 03/05/17 0000 Signed Impressions: Service Date/Time: Sunday, March 05, 2017 16:29 - CONCLUSION: Moderate volume of moderately reversible ischemia. Fairly severe LV dysfunction. RISK CATEGORY: High (>3%% Annual Mortality Rate) Brian Brewster MD Chest X-Ray 03/02/17 0914 Signed Impressions: Service Date/Time: Thursday, March 02, 2017 09:22 - CONCLUSION: Mild opacity at the lung bases could represent atelectasis or chronic interstitial lung disease. Otherwise, no acute finding is identified. Brian York MD PE at Discharge GENERAL: This is a well-nourished, well-developed patient, in no apparent distress. CARDIOVASCULAR: Regular rate and regular rhythm without murmurs, gallops, or rubs. RESPIRATORY: better air entry bilaterally with no wheezing. GASTROINTESTINAL: Abdomen soft, non-tender, nondistended. Normal, active bowel sounds MUSCULOSKELETAL: Extremities without clubbing, cyanosis, or edema. NEURO: Alert & Oriented x4 to person, place, time, situation. Moves all ext x4 Hospital Course - acute hypoxemic respiratory failure/ acute COPD exacerbation-improved. keep on oxygen to keep O2 sat >90%- continue neb treatment- switch to po prednisone. patient is oxygen-dependent. -atrial fibrillation -with abnormal stress test- HR better-; continue lopressor - cardiology consult appreciated. s/p cardiac cath with stent placement-continue aspirin,plavix and statin. declined anticoagulation; says that she was on Eliquis last year and developed internal bleeding. -diabetes mellitus; resumed long-acting insulin- continue accu-check with SSI blood sugar levels expected to improve as steroids being tapered off. -hypertension; resumed lisinopril- resumed metoprolol.continue amlodipine. -anemia- chronic- f/u as outpatient. -DVT prophylaxis with SCD's Pt Condition on Discharge: Good Discharge Disposition: Disch w/ Home Health Serv Discharge Time: > 30 minutes Discharge Instructions DIET: Follow Instructions for: Heart Healthy Diet, Diabetic Diet Activities you can perform: Regular-No Restrictions Follow up Referrals: Cardiology PCP Follow-up New Medications: Albuterol 18 GM Inh (Ventolin Hfa 18 GM Inh) 90 Mcg/Act Aer 2 PUFF INH Q6H PRN SHORTNESS OF BREATH #1 Ref 0 INHALER Prednisone (Prednisone) 5 Mg Tab 5 MG PO DIRECTED 40 mg po daily for two days then 30 mg po daily for two days then 20 mg po daily for two days then 10 mg po daily for two days then 5 mg po daily for two days then stop. copd Days 10 Ref 0 TAB Amlodipine (Norvasc) 5 Mg Tab 10 MG PO DAILY hypertension Days 30 Ref 0 TAB Atorvastatin (Atorvastatin) 40 Mg Tab 40 MG PO HS cad Days 30 Ref 0 TAB Clopidogrel (Plavix) 75 Mg Tab 75 MG PO DAILY cad Days 30 Ref 0 TAB Changed Medications: Metformin (Metformin) 1,000 Mg Tab 1000 MG PO BID With meals. resume on 03/09/17. Blood Sugar Management #60 Ref 0 TAB (Changed from: With meals) Metoprolol Tartrate (Metoprolol Tartrate) 25 Mg Tab 25 MG PO QID a-fib. Days 30 Ref 0 TAB (Changed from: BID; Removed Quantity) Continued Medications: Aspirin (Aspirin) 81 Mg Chew 81 MG CHEW BID Ref 0 TAB Insulin Detemir Inj (Levemir Flextouch Pen Inj) 300 unit/3 ML Pen 15 UNITS SQ HS Blood Sugar Management Ref 0 PEN Lisinopril (Lisinopril) 20 Mg Tab 20 MG PO BID #30 Ref 0 TAB Pantoprazole (Protonix) 40 Mg Tab 40 MG PO Q12HR Reflux #30 Ref 0 TAB Tiotropium Inh (Spiriva Handihaler) 18 Mcg Cap 18 MCG INH DAILY 1 capsule = 18 mcg COPD #30 Ref 0 CAP Jasbir Moffett MD Mar 08, 2017 07:57 Jasbir Moffett MD Mar 08, 2017 07:57
[2017-03-08] MEDS ORDERED: ASPI81CH CHEW (08:02)
--- NOTE | 2017-03-08 08:49 | PD.CARD.PN ---
Subjective Subjective Remarks The patient denies chest pain, shortness of breath, palpitations, GI symptoms or bleeding. Telemetry reveals sinus rhythm with a short atrial runs. Objective Medications Reviewed Vital Signs / I&O Vital Signs Date Time Temp Pulse Resp B/P Pulse Ox O2 Delivery O2 Flow Rate FiO2 03/08/17 08:00 66 03/08/17 07:00 56 03/08/17 07:00 95 Nasal Cannula 2.00 03/08/17 07:00 98.1 67 20 133/60 95 03/08/17 06:00 60 03/08/17 05:54 98.7 69 16 130/75 96 03/08/17 05:00 68 03/08/17 04:00 58 03/08/17 03:00 58 03/08/17 02:00 66 03/08/17 01:00 68 03/08/17 00:46 98.3 75 16 130/75 95 03/08/17 00:00 66 03/07/17 23:00 70 03/07/17 22:00 74 03/07/17 21:00 78 03/07/17 20:20 98.3 74 16 143/84 95 03/07/17 20:20 95 Nasal Cannula 2.00 03/07/17 20:00 74 03/07/17 19:00 73 03/07/17 18:01 74 03/07/17 17:01 72 03/07/17 16:00 80 03/07/17 15:01 98.4 80 18 154/73 94 03/07/17 15:00 84 03/07/17 14:00 80 03/07/17 13:00 98.2 81 18 109/56 94 Manual Cuff/Palpation 03/07/17 13:00 80 I/O 03/07/17 03/07/17 03/07/17 03/08/17 03/08/17 03/08/17 07:00 15:00 23:00 07:00 15:00 23:00 Intake Total 0 ml 1240 ml 360 ml Output Total 500 ml 400 ml 0 ml Balance -500 ml 840 ml 360 ml Intake Oral 0 ml 240 ml 360 ml IV Total 1000 ml Output Urine Total 500 ml 400 ml Stool Total 0 ml # Voids 2 3 # Bowel Movements 0 0 Physical Exam GENERAL: Well-nourished, well-developed patient in no apparent distress. SKIN: Warm and dry. NECK: JVD normal - less than or equal to 5 cm H20. CARDIOVASCULAR: Regular rate and rhythm without gallops, or rubs. 2/6 early peaking systolic ejection murmur at the base. RESPIRATORY: Normal breath sounds - equal bilaterally. No accessory muscle use. No wheezes, rales or rubs. PERIPHERY: No cyanosis, or edema. Right groin without hematoma or bleeding. Laboratory Laboratory Tests Test 03/08/17 03:49 White Blood Count 12.1 TH/MM3 Red Blood Count 4.04 MIL/MM3 Hemoglobin 10.3 GM/DL Hematocrit 32.5 % Mean Corpuscular Volume 80.5 FL Mean Corpuscular Hemoglobin 25.5 PG Mean Corpuscular Hemoglobin 31.7 % Concent Red Cell Distribution Width 15.4 % Platelet Count 345 TH/MM3 Mean Platelet Volume 7.9 FL Neutrophils (%) (Auto) 74.8 % Lymphocytes (%) (Auto) 16.2 % Monocytes (%) (Auto) 7.4 % Eosinophils (%) (Auto) 1.4 % Basophils (%) (Auto) 0.2 % Neutrophils # (Auto) 9.1 TH/MM3 Lymphocytes # (Auto) 2.0 TH/MM3 Monocytes # (Auto) 0.9 TH/MM3 Eosinophils # (Auto) 0.2 TH/MM3 Basophils # (Auto) 0.0 TH/MM3 CBC Comment AUTO DIFF Differential Comment AUTO DIFF CONFIRMED Platelet Estimate NORMAL Platelet Morphology Comment NORMAL Sodium Level 140 MEQ/L Potassium Level 3.8 MEQ/L Chloride Level 101 MEQ/L Carbon Dioxide Level 31.7 MEQ/L Anion Gap 7 MEQ/L Blood Urea Nitrogen 24 MG/DL Creatinine 0.76 MG/DL Estimat Glomerular Filtration 73 ML/MIN Rate Random Glucose 137 MG/DL Calcium Level 8.8 MG/DL Imaging Reviewed Assessment and Plan Assessment and Plan Problems: Coronary artery disease with drug-eluting stent of the circumflex and residual disease. Oxygen-dependent COPD Diabetes Hypertension Hyperlipidemia Paroxysmal atrial fibrillation Recommendations: Continue aspirin and Plavix without interruption. The patient understands she cannot stop this because of risk of stent thrombosis. Hold full anticoagulation Continue other medication. The patient can be some discharge when stable assuming her echocardiogram returns without significant abnormalities. She will need to follow-up with . Groin care was discussed and all questions answered. I will be available if needed. Alexis Sandoval MD Mar 08, 2017 08:49
[2017-03-08] MEDS ORDERED: amLODIPine BESYLATE 5 MG TAB PO SCH (09:00)
[2017-03-08] MEDS ORDERED: predniSONE 20 MG TAB PO SCH (09:00)
[2017-03-08] MEDS: TIOTROPIUM BROMIDE 18 MCG INH INH SCH ×2 (09:00→10:03)
[2017-03-08] MEDS ORDERED: CLOPIDOGREL 75 MG TAB PO SCH (09:00)
[2017-03-08] MEDS: PANTOPRAZOLE SOD 40 MG DELAYED RELEASE TAB PO SCH (09:20)
[2017-03-08] MEDS: LISINOPRIL 20 MG TAB PO SCH (09:20)
[2017-03-08] MEDS: ASPIRIN 81 MG CHEW TAB CHEW SCH (09:20)
[2017-03-08] MEDS: LEVOFLOXACIN 500 MG PREMIX INJ 100 ML IV SCH (09:20)
[2017-03-08] MEDS: METOPROLOL TARTRATE 25 MG TAB PO SCH ×2 (09:21→13:13)
--- NOTE | 2017-03-08 10:33 | ECHRPT ---
Indication: Persistent atrial fibrillation CONCLUSIONS The left ventricular systolic function is low normal with an estimated ejection fraction in the rang e of 50- 55%. There was limited left ventricular wall motion assessment due to poor endocardial visualization. Doppler parameters are consistent with impaired left ventricular relaxtion (grade 1 diastolic dysfun ction). Mild concentric left ventricular hypertrophy. Normal left ventricular size. The right ventricle was not well visualized. The right atrium is not well visualized. The interatrial septum not well visualized. Mild thickening of the mitral valve leaflets. Moderate mitral annular calcification. Mild aortic valve stenosis. The aortic valve is not well visualized. Moderate thickening of the aortic valve leaflets. The tricuspid valve is not well visualized. The pulmonary valve is not well visualized. The inferior vena cava was not well visualized. BP: 133 / 70 HR: 110 Rhythm: Sinus MEASUREMENTS (Male / Female) Normal Values Technical Quality:Technically difficult study., Po or 2D ECHO LV Diastolic Diameter PLAX 4.5 cm 4.2 - 5.9 / 3.9 - 5.3 cm LV Systolic Diameter PLAX 3.4 cm IVS Diastolic Thickness 1.2 cm 0.6 - 1.0 / 0.6 - 0.9 cm LVPW Diastolic Thickness 1.2 cm 0.6 - 1.0 / 0.6 - 0.9 cm LV Relative Wall Thickness 0.5 LVOT Diameter 2.1 cm LA Systolic Diameter LX 3.9 cm 3.0 - 4.0 / 2.7 - 3.8 cm M-MODE Aortic Root Diameter MM 2.9 cm AV Cusp Separation MM 1.9 cm DOPPLER AV Peak Velocity 239.6 cm/s AV Peak Gradient 23.0 mmHg AV Mean Gradient 13.0 mmHg AV Velocity Time Integral 51.9 cm LVOT Peak Velocity 98.2 cm/s LVOT Peak Gradient 3.9 mmHg AV Area Cont Eq pk 1.4 cm MV Peak Velocity 122.0 cm/s MV Peak Gradient 6.0 mmHg MV Mean Velocity 66.6 cm/s MV Mean Gradient 2.0 mmHg MV Area PHT 1.8 cm Mitral E Point Velocity 92.8 cm/s Mitral A Point Velocity 115.0 cm/s Mitral E to A Ratio 0.8 LV E' Lateral Velocity 4.4 cm/s Mitral E to LV E' Lateral Ratio 21.1 LV E' Septal Velocity 4.7 cm/s Mitral E to LV E' Septal Ratio 19.8 PV Peak Velocity 133.0 cm/s PV Peak Gradient 7.1 mmHg FINDINGS LEFT VENTRICLE The left ventricular systolic function is low normal with an estimated ejection fraction in the rang e of 50- 55%. There was limited left ventricular wall motion assessment due to poor endocardial visualization. Doppler parameters are consistent with impaired left ventricular relaxtion (grade 1 diastolic dysfun ction). Mild concentric left ventricular hypertrophy. Normal left ventricular size. RIGHT VENTRICLE The right ventricle was not well visualized. LEFT ATRIUM The left atrial size is normal. RIGHT ATRIUM The right atrial size is normal. The right atrium is not well visualized. ATRIAL SEPTUM The interatrial septum not well visualized. AORTA The aortic root and proximal ascending aorta are normal in size on limited imaging. MITRAL VALVE Mild thickening of the mitral valve leaflets. Moderate mitral annular calcification. AORTIC VALVE Mild aortic valve stenosis. The aortic valve is not well visualized. Moderate thickening of the aortic valve leaflets. TRICUSPID VALVE The tricuspid valve is not well visualized. PULMONARY VALVE The pulmonary valve is not well visualized. VESSELS The inferior vena cava was not well visualized. PERICARDIUM No pericardial effusion. Aelxis Sandoval MD (Electronically Signed) Final Date:08 March 2017 10:32
== END 2017-03-08 14:10 | disposition home health service (06) | DRG 981 ==
LOC: NEPC 09:06 → NEDA 11:21 → OBSVTOIN 12:10 → N05B 14:11 → N04B 03-04 16:08 → HCIS 03-07 10:40
PROVIDERS: ADMIT Internal Medicine; ATTEND Internal Medicine
PROC: 4A023N7 Measurement of Cardiac Sampling and Pressure, Left Heart, Percutaneous Approach (ICD-10-PCS; 2017-03-07)
PROC: B2111ZZ Fluoroscopy of Multiple Coronary Arteries using Low Osmolar Contrast (ICD-10-PCS; 2017-03-07)
PROC: 027034Z Dilation of Coronary Artery, One Artery with Drug-eluting Intraluminal Device, Percutaneous Approach (ICD-10-PCS; principal; 2017-03-07 09:45)
DX: J44.1 Chronic obstructive pulmonary disease with (acute) exacerbation (principal); J96.01 Acute respiratory failure with hypoxia; I24.8 Other forms of acute ischemic heart disease; T82.855A Stenosis of coronary artery stent, initial encounter; E11.65 Type 2 diabetes mellitus with hyperglycemia; Z99.81 Dependence on supplemental oxygen; D64.9 Anemia, unspecified; I10 Essential (primary) hypertension; I48.0 Paroxysmal atrial fibrillation; I25.10 Atherosclerotic heart disease of native coronary artery without angina pectoris; R00.0 Tachycardia, unspecified; T44.3X5A Adverse effect of other parasympatholytics [anticholinergics and antimuscarinics] and spasmolytics, initial encounter; Z87.891 Personal history of nicotine dependence; Y83.1 Surgical operation with implant of artificial internal device as the cause of abnormal reaction of the patient, or of later complication, without mention of misadventure at the time of the procedure; Z79.4 Long term (current) use of insulin; Z88.0 Allergy status to penicillin
CPT/HCPCS: 71010; 78452; 80048; 80053; 81001; 82948; 83880; 85002; 85025; 85610; 85730; 87804; 92928; 93005; 93017; 93306; 93454; 94640; 94664; 96374; A7521; A9502; C1725; C1769; C1874; C1887; C1893; J1644; J1815; J1956; J2250; J2785; J2920; J2930; J3010; J7512; Q9967

== ENCOUNTER 2017-08-22 18:44 | Inpatient (IN) | payer OTHER, MEDICARE ==
[~2017-08-22] VITALS: Ht 172.7 cm; Wt 92.3 kg
[~2017-08-22 18:44] MED LIST changes: -ALBU8I INH; +AMLO5 PO; +ASPI-516 CHEW; -ASPI1TAB7 PO; +ATOR40TA16 PO; -ATOR80TA41 PO; -DUONI NEB; -FERR324T4 PO; +INSU1INJ5 SQ; +LISI-515 PO; -LISI20 PO; +METF1000 PO; -METF500 PO; -METO25 PO; +METO25TA3 PO; +PLAV75TA29 PO; +PRED5TAB PO; +SPIRCAP INH; -TIOT18I INH; +VENTAER INH; -Z.0.OXYGENDME NC
[2017-08-22 18:45] VITALS: BP 105/74; PULSE 107; RESP 22; TEMP 98.8; O2SAT 90
[2017-08-22] MEDS: RESP: ALBUTEROL 2.5 MG/IPRATROPIUM 0.5 MG NEB (SCH) INH (19:11)
[2017-08-22] MEDS ORDERED: methylPREDNISolone SOD SUCC 125 MG/2 ML VIAL IV PUSH ONE (19:15)
--- NOTE | 2017-08-22 19:49 | PD ---
HPI Chief Complaint: Respiratory Distress Time Seen by Provider: 19:23 Travel History International Travel<30 days: No Contact w/Intl Traveler<30days: No Traveled to known affect area: No History of Present Illness HPI Patient is a 81-year-old female coming in complaining of shortness of breath progressively over the last few days she took home nebs without relief. She also reports intermittent chest pain over the last day however it is gone now. She reports pain was across her entire upper chest. In the ER she is only complaining of shortness of breath she denies history of CHF , she denies history of edema, initially her sat was 85% on room air ,, she is put on 100% nonrebreather and given duo nebs and on nasal canula @2 L she is holding at 94. At home she has 2 L oxygen she uses when needed. She does not appear septic she does not appear altered ,she is a good historian daughter is bedside PFSH Past Medical History Hx Anticoagulant Therapy: Yes (ELIQUIS) Arthritis: Yes Asthma: No Blood Disorders: No Heart Rhythm Problems: No Cancer: No Cardiac Catheterization: Yes Cardiovascular Problems: Yes High Cholesterol: No Chest Pain: Yes Congestive Heart Failure: No COPD: Yes Coronary Artery Disease: Yes Diabetes: Yes Patient Takes Glucophage: Yes Endocrine: No Gastrointestinal Disorders: No Genitourinary: No Hepatitis: No Hiatal Hernia: No Hypertension: Yes Immune Disorder: Yes (polymyalgia) Implanted Vascular Access Dvce: No Musculoskeletal: Yes (arthritis) Neurologic: No Psychiatric: No Reproductive: No Respiratory: Yes (COPD CONTINUOUS O2 ) Sleep Apnea: No Thyroid Disease: No Menopausal: Yes : 4 Para: 4 Miscarriage: 0 : 0 Past Surgical History Abdominal Surgery: Yes (appendectomy, GB removal) AICD: No Appendectomy: Yes Arteriovenous Shunt: No Body Medical Devices: cardiac stent Cardiac Surgery: Yes (x1 stent) Ear Surgery: No Endocrine Surgery: No Eye Surgery: Yes (ana cataract removal) Genitourinary Surgery: No Gynecologic Surgery: No Insulin Pump: No Joint Replacement: No Neurologic Surgery: No Oral Surgery: Yes (tonsillectomy) Pacemaker: No Thoracic Surgery: No Other Surgery: Yes Social History Alcohol Use: No Tobacco Use: No Substance Use: No Allergies-Medications (Allergen,Severity, Reaction): Coded Allergies: penicillin G (Unverified Adverse Reaction, Intermediate, Rash, 08/22/17) Reported Meds & Prescriptions Reported Meds & Active Scripts Active Aspirin 81 Mg Chew 81 Mg CHEW DAILY 30 Days Plavix (Clopidogrel Bisulfate) 75 Mg Tab 75 Mg PO DAILY 30 Days Atorvastatin (Atorvastatin Calcium) 40 Mg Tab 40 Mg PO HS 30 Days Norvasc (Amlodipine Besylate) 5 Mg Tab 10 Mg PO DAILY 30 Days Metformin (Metformin HCl) 1,000 Mg Tab 1,000 Mg PO BID With meals. resume on 03/09/17. Metoprolol Tartrate 25 Mg Tab 25 Mg PO QID 30 Days Ventolin Hfa 18 GM Inh (Albuterol Sulfate) 90 Mcg/Act Aer 2 Puff INH Q6H PRN Reported Spiriva Handihaler (Tiotropium Inh) 18 Mcg Cap 18 Mcg INH DAILY 1 capsule = 18 mcg Levemir Flextouch Pen Inj (Insulin Detemir) 300 unit/3 ML Pen 15 Units SQ HS Protonix (Pantoprazole Sodium) 40 Mg Tab 40 Mg PO Q12HR Lisinopril 20 Mg Tab 20 Mg PO BID Review of Systems Except as stated in HPI: all other systems reviewed are Neg Cardiovascular: Positive: Chest Pain or Discomfort Respiratory: Positive: Cough, Shortness of Breath, Wheezing Physical Exam Narrative GENERAL: Patient is mild respiratory distress breathing increased respiratory rate lungs have crackles right lower base and minimal X Tres wheeze in the upper airways bilateral SKIN: Warm and dry. HEAD: Atraumatic. Normocephalic. EYES: Pupils equal and round. No scleral icterus. No injection or drainage. ENT: No nasal bleeding or discharge. Mucous membranes pink and moist. NECK: Trachea midline. No JVD. CARDIOVASCULAR: . Slightly rapid and slightly irregular multiple PACs first EKG is at a rate of 83 with 1 PVC and then a premature atrial contraction leading to a different morphology for the QRS RESPIRATORY: No accessory muscle use. Clear to auscultation. Breath sounds equal bilaterally. GASTROINTESTINAL: Abdomen soft, non-tender, nondistended. Hepatic and splenic margins not palpable. MUSCULOSKELETAL: Extremities without clubbing, cyanosis, or edema. No obvious deformities. NEUROLOGICAL: Awake and alert. No obvious cranial nerve deficits. Motor grossly within normal limits. Five out of 5 muscle strength in the arms and legs. Normal speech. PSYCHIATRIC: Appropriate mood and affect; insight and judgment normal. Data Data Last Documented VS Vital Signs Date Time Temp Pulse Resp B/P (MAP) Pulse Ox O2 Delivery O2 Flow Rate FiO2 08/22/17 20:24 116 32 158/72 (100) 97 Nasal Cannula 4.00 08/22/17 18:45 98.8 Orders Orders Methylprednisolone So Succ Inj (Solumedr (08/22/17 19:15) Albuterol-Ipratropium Neb (Duoneb Neb) (08/22/17 19:15) B-Type Natriuretic Peptide (08/22/17 19:23) Complete Blood Count With Diff (08/22/17 19:23) Comprehensive Metabolic Panel (08/22/17 19:23) Chest, Single Ap (08/22/17 ) Troponin I (08/22/17 19:46) Levofloxacin 750 Mg Premix Inj (Levaquin (08/22/17 20:00) Aspirin Chew (Aspirin Chew) (08/22/17 20:00) Metoprolol Tartrate Inj (Lopressor Inj) (08/22/17 20:15) Metoprolol Tartrate (Lopressor) (08/22/17 20:15) Type And Screen (08/22/17 20:07) Red Blood Cells (Rbc) (08/22/17 20:07) Blood Product Administration (08/22/17 20:07) Sodium Chlor 0.9% 250 Ml Inj (Ns 250 Ml (08/22/17 20:15) Sodium Chlor 0.9% 1000 Ml Inj (Ns 1000 M (08/22/17 20:15) Electrocardiogram (08/22/17 19:07) Electrocardiogram (08/22/17 20:08) Admit Order (Ed Use Only) (08/22/17 21:40) Labs Laboratory Tests Test 08/22/17 19:33 White Blood Count 8.5 TH/MM3 Red Blood Count 2.92 MIL/MM3 Hemoglobin 6.5 GM/DL Hematocrit 21.0 % Mean Corpuscular Volume 71.9 FL Mean Corpuscular Hemoglobin 22.3 PG Mean Corpuscular Hemoglobin Concent 30.9 % Red Cell Distribution Width 17.4 % Platelet Count 315 TH/MM3 Mean Platelet Volume 7.7 FL Neutrophils (%) (Auto) 65.4 % Lymphocytes (%) (Auto) 21.3 % Monocytes (%) (Auto) 10.0 % Eosinophils (%) (Auto) 2.6 % Basophils (%) (Auto) 0.7 % Neutrophils # (Auto) 5.6 TH/MM3 Lymphocytes # (Auto) 1.8 TH/MM3 Monocytes # (Auto) 0.9 TH/MM3 Eosinophils # (Auto) 0.2 TH/MM3 Basophils # (Auto) 0.1 TH/MM3 CBC Comment DIFF FINAL Differential Comment Blood Urea Nitrogen 22 MG/DL Creatinine 0.95 MG/DL Random Glucose 108 MG/DL Total Protein 7.1 GM/DL Albumin 3.2 GM/DL Calcium Level 8.9 MG/DL Alkaline Phosphatase 73 U/L Aspartate Amino Transf (AST/SGOT) 12 U/L Alanine Aminotransferase (ALT/SGPT) 13 U/L Total Bilirubin 0.4 MG/DL Sodium Level 142 MEQ/L Potassium Level 4.1 MEQ/L Chloride Level 108 MEQ/L Carbon Dioxide Level 25.3 MEQ/L Anion Gap 9 MEQ/L Estimat Glomerular Filtration Rate 57 ML/MIN Troponin I LESS THAN 0.02 NG/ML B-Type Natriuretic Peptide 239 PG/ML MDM Medical Decision Making Medical Screen Exam Complete: Yes Emergency Medical Condition: Yes Differential Diagnosis copd vs chf vs PNA vs SVT with anemia causing sensation of SOB Narrative Course Patient is found to have a supraventricular tachycardia irregular with multiple PACs causing her to feel short of breath she has remained normotensive I give her Lopressor to slow her heart rate down , to allow ventricle time to increase preload , she is now feeling much better heart rate slowed down to 90 , RR decreased to normal , she is admitted to telemetry < I ordered to transfuse pt -2 units to replace the oxygen carrying capacity of the red blood cells, I give her a literNS fluid to temporize until the blood is ready, PO loaded Lopressor as well . she is admitted to telemetry for arrhythmia and anemia shortness of breath, x-ray shows possible right lower lobe pneumonia -- > Levaquin is given as well as the Solumedrol was given by prior ER [facility] Narrative cc time 30 mins as above detailed Diagnosis Primary Impression: Anemia Qualified Codes: D64.9 - Anemia, unspecified Additional Impression: Dysrhythmia, cardiac Qualified Codes: I49.1 - Atrial premature depolarization Admitting Information Admitting Physician Requests: Admit Jayden Samaniego MD Aug 22, 2017 19:49
[2017-08-22 19:50] LABS: AUTOMATED NEUTROPHIL # 5.6 TH/MM3 (1.8-7.7); BASOPHIL # 0.1 TH/MM3 (0-0.2); BASOPHIL % 0.7 % (0.0-2.0); EOSINOPHIL # 0.2 TH/MM3 (0-0.4); EOSINOPHIL % 2.6 % (0.0-4.0); LYMPH % 21.3 % (9.0-44.0); LYMPHOCYTE # 1.8 TH/MM3 (1.0-4.8); MEAN CELL VOLUME 71.9 FL (80.0-100.0); MEAN CORPUSCULAR HEMOGLOBIN 22.3 PG (27.0-34.0); MEAN CORPUSCULAR HGB CONC 30.9 % (32.0-36.0); MEAN PLATELET VOLUME 7.7 FL (7.0-11.0); MONOCYTE # 0.9 TH/MM3 (0-0.9); NEUT % 65.4 % (16.0-70.0); PLATELET COUNT 315 TH/MM3 (150-450); RED BLOOD COUNT 2.92 MIL/MM3 (4.00-5.30); RED CELL DISTRIBUTION WIDTH 17.4 % (11.6-17.2); WHITE BLOOD COUNT 8.5 TH/MM3 (4.0-11.0)
[2017-08-22 19:56] LABS: HEMOGLOBIN 6.5 GM/DL (11.6-15.3)
[2017-08-22] MEDS ORDERED: LEVOFLOXACIN 750 MG PREMIX INJ 150 ML IV SCH (20:00)
[2017-08-22] MEDS ORDERED: ASPIRIN 81 MG CHEW TAB CHEW ONE (20:00)
[2017-08-22] MEDS ORDERED: METOPROLOL TARTRATE 25 MG TAB PO ONE (20:15)
[2017-08-22] MEDS ORDERED: METOPROLOL TARTRATE 5 MG/5 ML VIAL IV PUSH ONE (20:15)
[2017-08-22] MEDS ORDERED: SODIUM CHLOR 0.9% 1000 ML INJ 1,000 ML IV ONE (20:15)
[2017-08-22] MEDS ORDERED: SODIUM CHLOR 0.9% 250 ML INJ 250 ML IV ONE (20:15)
[2017-08-22 20:18] LABS: ALBUMIN 3.2 GM/DL (3.4-5.0); BICARBONATE 25.3 MEQ/L (21.0-32.0); BLOOD UREA NITROGEN 22 MG/DL (7-18); CALCIUM 8.9 MG/DL (8.5-10.1); CHLORIDE 108 MEQ/L (98-107); CREATININE 0.95 MG/DL (0.50-1.00); GLOMERULAR FILTRATION RATE 57 ML/MIN (>89); GLUCOSE,RANDOM 108 MG/DL (74-106); SODIUM (NA) 142 MEQ/L (136-145)
[2017-08-22 20:19] LABS: ALT (GPT) 13 U/L (10-53); AST (GOT) 12 U/L (15-37)
[2017-08-22 20:21] LABS: ALKALINE PHOSPHATASE 73 U/L (45-117); TOTAL BILIRUBIN ADULT 0.4 MG/DL (0.2-1.0); TOTAL PROTEIN 7.1 GM/DL (6.4-8.2)
[2017-08-22 20:24] VITALS: BP 158/72; PULSE 116; RESP 32; O2SAT 97
--- NOTE | 2017-08-22 20:31 | RADRPT ---
EXAM DATE/TIME: 08/22/2017 19:45 [facility] COMPARISON: CHEST SINGLE AP, March 02, 2017, 9:22. INDICATIONS : Shortness of breath. MEDICAL HISTORY : Chronic obstructive pulmonary disease. Myocardial infarction. SURGICAL HISTORY : Discectomy, lumbar. Appendectomy. ENCOUNTER: Initial ACUITY: 4 - 6 days PAIN SCORE: 0/10 LOCATION: Bilateral chest FINDINGS: A single view of the chest demonstrates basilar airspace disease, right greater than left with small effusions. No pneumothorax. Heart size within normal limits. Tortuous aorta. CONCLUSION: 1. Basilar airspace disease, right greater than left with small effusion. Mal Main MD on August 22, 2017 at 20:27 Board Certified Radiologist. This report was verified electronically.
[2017-08-22] MEDS ORDERED: DEXTROSE 50% IN WATER 50 ML VIAL(D50) IV PUSH PRN (21:45)
[2017-08-22] MEDS ORDERED: LACTULOSE SYRUP 20 GM/30 ML CUP PO PRN (21:45)
[2017-08-22] MEDS ORDERED: ONDANSETRON HCL 4 MG/2 ML VIAL IVP PRN (21:45)
[2017-08-22] MEDS ORDERED: GLUCAGON 1 MG/ML VIAL OTHER PRN (21:45)
[2017-08-22] MEDS ORDERED: BISACODYL 10 MG SUPP RECTAL PRN (21:45)
[2017-08-22] MEDS ORDERED: ACETAMINOPHEN 325 MG TAB PO PRN (21:45)
[2017-08-22] MEDS ORDERED: RESP: ALBUTEROL 2.5 MG/IPRATROPIUM 0.5 MG NEB (PRN) NEB (21:45)
[2017-08-22] MEDS ORDERED: MORPHINE SULFATE 2 MG/ML INJ IV PUSH PRN (21:45)
[2017-08-22] MEDS ORDERED: SODIUM CHLORIDE 0.9% FLUSH 10 ML FLUSH IV FLUSH PRN (21:45)
[2017-08-22] MEDS ORDERED: SENNOSIDES 8.6 MG TAB PO PRN (21:45)
[2017-08-22] MEDS ORDERED: MAGNESIUM HYDROXIDE SUSP 30 ML CUP PO PRN (21:45)
[2017-08-22] MEDS ORDERED: ACETAMINOPHEN/HYDROcodone 325 MG/5 MG TAB PO PRN (21:45)
--- NOTE | 2017-08-22 21:51 | HHI.HP ---
HPI Service [facility] Primary Care Physician Juliet Veliz MD Admission Diagnosis arrhythmia Diagnoses: (1) COPD (chronic obstructive pulmonary disease) Diagnosis: Principal (2) Arrhythmia Diagnosis: Principal (3) Anemia Diagnosis: Principal (4) DM (diabetes mellitus) Diagnosis: Principal Travel History International Travel<30 Days: No Contact w/Intl Traveler <30 Da: No Traveled to Known Affected Are: No History of Present Illness This is a 81-year-old female with a PMH of HTN, Hyperlipidemia, Anemia, COPD, O2 Dependent and DM who presented to the ER with complaints of SOB and wheezing x2 days. Has been using Nebulizer and MDI at home w/ no significant improvement. Reports significantly increased work of breathing, worse w/ exertion/ambulation. Denies fever, chills, cough or sick contacts. On arrival , pt w/ significant respiratory distress and work of breathing. BP 105/74, HR 107, O2 sat 90% on 2L NC. Hemoglobin 6.5, previously 10.3 on 03/08/17. Reports h/o anemia w/ transfusion approx 1yr ago. Chemistry essentially unremarkable. Troponin negative. BNP 239. CXR w/ basilar airspace disease. While in ER, pt w/ episode of A-fib w/ RVR after receiving treatment, s/p Lopressor w/ resolution, now back to NSR. S/p Levaquin and DuoNeb in ER as well. Pending 2u pRBC transfusion. Review of Systems Except as stated in HPI: all other systems reviewed are Neg ROS: 14 point review of systems otherwise negative. Past Family Social History Past Medical History PMH: HTN, Hyperlipidemia, Anemia, COPD, O2 Dependent and DM Past Surgical History PAST SURGICAL HISTORY: Appendectomy, Cholecystectomy, Cardiac Stent, Cataract Surgery, Tonsillectomy Allergies: Coded Allergies: penicillin G (Unverified Adverse Reaction, Intermediate, Rash, 08/22/17) Family History PAST FAMILY HISTORY: Reviewed. No h/o DM or CAD Social History PAST SOCIAL HISTORY: Negative for alcohol, tobacco or drugs. Physical Exam Vital Signs Vital Signs Date Time Temp Pulse Resp B/P (MAP) Pulse Ox O2 Delivery O2 Flow Rate FiO2 08/22/17 20:24 116 32 158/72 (100) 97 Nasal Cannula 4.00 08/22/17 19:03 95 Nasal Cannula 2.00 08/22/17 18:45 98.8 107 22 105/74 (84) 90 Physical Exam PE: GENERAL: Very pleasant elderly white female, significant dyspnea w/ speech. HEENT: PERRLA, EOMI. No scleral icterus or conjunctival pallor. No lid lag or facial droop. CARDIOVASCULAR: Regular rate and rhythm. No obvious murmurs to auscultation. No chest tenderness to palpation. RESPIRATORY: No obvious rhonchi. Occasional wheezing. Clear to auscultation. Decreased air movement bilaterally. GASTROINTESTINAL: Abdomen soft, non-tender, nondistended. BS normal. MUSCULOSKELETAL: Extremities without clubbing, cyanosis, or edema. No obvious deformities. NEUROLOGICAL: Awake, alert and oriented x4. No focal neurologic deficits. Moving both upper and lower extremities spontaneously. Laboratory Laboratory Tests Test 08/22/17 19:33 White Blood Count 8.5 Red Blood Count 2.92 Hemoglobin 6.5 Hematocrit 21.0 Mean Corpuscular Volume 71.9 Mean Corpuscular Hemoglobin 22.3 Mean Corpuscular Hemoglobin Concent 30.9 Red Cell Distribution Width 17.4 Platelet Count 315 Mean Platelet Volume 7.7 Neutrophils (%) (Auto) 65.4 Lymphocytes (%) (Auto) 21.3 Monocytes (%) (Auto) 10.0 Eosinophils (%) (Auto) 2.6 Basophils (%) (Auto) 0.7 Neutrophils # (Auto) 5.6 Lymphocytes # (Auto) 1.8 Monocytes # (Auto) 0.9 Eosinophils # (Auto) 0.2 Basophils # (Auto) 0.1 CBC Comment DIFF FINAL Differential Comment Blood Urea Nitrogen 22 Creatinine 0.95 Random Glucose 108 Total Protein 7.1 Albumin 3.2 Calcium Level 8.9 Alkaline Phosphatase 73 Aspartate Amino Transf (AST/SGOT) 12 Alanine Aminotransferase (ALT/SGPT) 13 Total Bilirubin 0.4 Sodium Level 142 Potassium Level 4.1 Chloride Level 108 Carbon Dioxide Level 25.3 Anion Gap 9 Estimat Glomerular Filtration Rate 57 Troponin I LESS THAN 0.02 Result Diagram: 08/22/17193208/22/171932 Caprini VTE Risk Assessment Caprini VTE Risk Assessment: No/Low Risk (score <= 1) Caprini Risk Assessment Model Point Value = 1 Point Value = 2 Point Value = 3 Point Value = 5 Age 41-60 Minor surgery BMI > 25 kg/m2 Swollen legs Varicose veins or History of unexplained or recurrent spontaneous Oral contraceptives or hormone replacement Sepsis (< 1 month) Serious lung disease, including pneumonia (< 1 month) Abnormal pulmonary function Acute myocardial infarction Congestive heart failure (< 1 month) History of inflammatory bowel disease Medical patient at bed rest Age 61-74 Arthroscopic surgery Major open surgery (> 45 min) Laparoscopic surgery (> 45 min) Malignancy Confined to bed (> 72 hours) Immobilizing plaster cast Central venous access Age >= 75 History of VTE Family history of VTE Factor V Leiden Prothrombin [id number] Lupus anticoagulant Anticardiolipin antibodies Elevated serum homocysteine Heparin-induced thrombocytopenia Other congenital or acquired thrombophilia Stroke (< 1 month) Elective arthroplasty Hip, pelvis, or leg fracture Acute spinal cord injury (< 1 month) Prophylaxis Regimen Total Risk Factor Score Risk Level Prophylaxis Regimen 0-1 Low Early ambulation 2 Moderate Order ONE of the following: *Sequential Compression Device (SCD) *Heparin 5000 units SQ BID 3-4 Higher Order ONE of the following medications: *Heparin 5000 units SQ TID *Enoxaparin/Lovenox 40 mg SQ daily (WT < 150 kg, CrCl > 30 mL/min) *Enoxaparin/Lovenox 30 mg SQ daily (WT < 150 kg, CrCl > 10-29 mL/min) *Enoxaparin/Lovenox 30 mg SQ BID (WT < 150 kg, CrCl > 30 mL/min) AND/OR *Sequential Compression Device (SCD) 5 or more Highest Order ONE of the following medications: *Heparin 5000 units SQ TID (Preferred with Epidurals) *Enoxaparin/Lovenox 40 mg SQ daily (WT < 150 kg, CrCl > 30 mL/min) *Enoxaparin/Lovenox 30 mg SQ daily (WT < 150 kg, CrCl > 10-29 mL/min) *Enoxaparin/Lovenox 30 mg SQ BID (WT < 150 kg, CrCl > 30 mL/min) AND *Sequential Compression Device (SCD) Assessment and Plan Problem List: (1) COPD (chronic obstructive pulmonary disease) ICD Code: J44.9 - Chronic obstructive pulmonary disease, unspecified (2) Anemia ICD Code: D64.9 - Anemia, unspecified Status: Acute (3) Arrhythmia ICD Code: I49.9 - Cardiac arrhythmia, unspecified (4) DM (diabetes mellitus) ICD Code: E11.9 - Type 2 diabetes mellitus without complications Assessment and Plan A/P: 1. COPD: Chronic Respiratory Failure w/ Acute Exacerbation. Severe. Significant respiratory distress w/ increased work of breathing, persistent, + dyspnea w/ speech. O2 Dependent, monitor O2 closely. Solu-Medrol, Symbicort, DuoNeb-substitute for Xopenex in light of episode of arrhythmia. CXR w/ basilar airspace disease, images reviewed by me, s/p Levaquin, continue w/ IV Abx for empiric treatment of PNA. 2. Arrhythmia: episode of what appeared to be A-fib w/ RVR while in ER, now back to NSR. Admit to [facility], place on telemetry, check Echo to eval for valvular abnormality/cardiomyopathy. Resume home Metoprolol. 3. Anemia: Critical Anemia, likely contributing to significant respiratory distress. No active bleeding. Hgb 6.5, previously 10.3 on 03/08/17. Transfuse 2u pRBC, repeat Hgb/Hct following transfusion. 4. DM: Sliding scale w/ Accu-Cheks. Resume home Insulin, hold Metformin 5. DVT Prophylaxis: SCD/Teds. 6. Social work for d/c planning as needed. 7. Case discussed at length w/ ER physician, labs/records/imaging reviewed by me. Physician Certification 2 Midnight Certification Type: Admission for Inpatient Services Order for Inpatient Services The services are ordered in accordance with Medicare regulations or non- Medicare payer requirements, as applicable. In the case of services not specified as inpatient-only, they are appropriately provided as inpatient services in accordance with the 2-midnight benchmark. Estimated LOS (days): 2 days is the estimated time the patient will need to remain in the hospital, assuming treatment plan goals are met and no additional complications. Post-Hospital Plan: Not yet determined Problem Qualifiers (1) Anemia: Qualified Codes: D64.9 - Anemia, unspecified Christel New MD Aug 22, 2017 21:51
[2017-08-22 22:02] VITALS: O2SAT 93
[2017-08-22 22:14] VITALS: BP 167/70; PULSE 85; RESP 28; TEMP 98.2; O2SAT 92
[2017-08-22] MEDS: INSULIN DETEMIR 100 UNITS/ML VIAL SQ SCH (22:22)
[2017-08-22 22:38] VITALS: BP 175/73; PULSE 82; RESP 24; O2SAT 91
[2017-08-22 22:50] VITALS: BP 148/65; PULSE 83; RESP 24; TEMP 97.8; O2SAT 91
[2017-08-23] VITALS (13 sets, daily range): BP systolic 105–167; BP diastolic 51–85; PULSE 55–108; RESP 18–24; TEMP 96.6–99.2; O2SAT 91–97
[2017-08-23] MEDS: methylPREDNISolone SOD SUCC 40 MG/1 ML VIAL IV PUSH SCH ×4 (01:37→21:13)
[2017-08-23] MEDS ORDERED: SODIUM CHLOR 0.9% 250 ML INJ 250 ML IV ONE (02:30)
[2017-08-23] MEDS ORDERED: FUROSEMIDE 20 MG/2 ML VIAL IV PUSH ONE (02:30)
[2017-08-23] MEDS: INSULIN ASPART SUPPLEMENTAL SCALE SQ SCH ×4 (08:00→21:14)
[2017-08-23] MEDS: RESP: ALBUTEROL 2.5 MG/IPRATROPIUM 0.5 MG NEB (SCH) NEB ×4 (08:00→21:03)
[2017-08-23] MEDS: SODIUM CHLORIDE 0.9% FLUSH 10 ML FLUSH IV FLUSH SCH ×2 (08:58→21:15)
[2017-08-23] MEDS: PANTOPRAZOLE SOD 40 MG DELAYED RELEASE TAB PO SCH ×2 (09:00→21:13)
[2017-08-23] MEDS: METOPROLOL TARTRATE 25 MG TAB PO SCH ×4 (09:00→21:13)
[2017-08-23] MEDS ORDERED: CLOPIDOGREL 75 MG TAB PO SCH (09:00)
[2017-08-23] MEDS: DOCUSATE SODIUM 50 MG/SENNA 8.6 MG TAB PO SCH ×2 (09:00→21:13)
[2017-08-23] MEDS: LISINOPRIL 20 MG TAB PO SCH ×2 (09:01→21:13)
[2017-08-23] MEDS: ASPIRIN 81 MG CHEW TAB CHEW SCH (09:01)
[2017-08-23 11:15] LABS: AUTOMATED NEUTROPHIL # 4.8 TH/MM3 (1.8-7.7); BASOPHIL % 0.3 % (0.0-2.0); HEMATOCRIT 25.7 % (35.0-46.0); HEMOGLOBIN 8.2 GM/DL (11.6-15.3); LYMPHOCYTE # 0.7 TH/MM3 (1.0-4.8); MEAN CELL VOLUME 75.3 FL (80.0-100.0); MEAN CORPUSCULAR HGB CONC 31.9 % (32.0-36.0); MEAN PLATELET VOLUME 7.7 FL (7.0-11.0); MONO % 4.8 % (0.0-8.0); MONOCYTE # 0.3 TH/MM3 (0-0.9); NEUT % 82.9 % (16.0-70.0); PLATELET COUNT 308 TH/MM3 (150-450); RED BLOOD COUNT 3.41 MIL/MM3 (4.00-5.30); RED CELL DISTRIBUTION WIDTH 20.3 % (11.6-17.2); WHITE BLOOD COUNT 5.8 TH/MM3 (4.0-11.0)
[2017-08-23] MEDS: BUDESONIDE-FORMOTEROL 160/4.5 MCG INHALER INH SCH ×2 (11:25→21:15)
[2017-08-23] MEDS: TIOTROPIUM BROMIDE 18 MCG INH INH SCH (11:26)
[2017-08-23 11:41] LABS: ALBUMIN 3.2 GM/DL (3.4-5.0); ALKALINE PHOSPHATASE 71 U/L (45-117); ALT (GPT) 11 U/L (10-53); AST (GOT) 15 U/L (15-37); BICARBONATE 24.8 MEQ/L (21.0-32.0); BLOOD UREA NITROGEN 19 MG/DL (7-18); CALCIUM 9.1 MG/DL (8.5-10.1); CHLORIDE 102 MEQ/L (98-107); CREATININE 0.82 MG/DL (0.50-1.00); GLOMERULAR FILTRATION RATE 67 ML/MIN (>89); GLUCOSE,RANDOM 296 MG/DL (74-106); SODIUM (NA) 138 MEQ/L (136-145); TOTAL BILIRUBIN ADULT 0.9 MG/DL (0.2-1.0); TOTAL PROTEIN 7.2 GM/DL (6.4-8.2)
--- NOTE | 2017-08-23 13:52 | EKG ---
Date Performed: 08/22/2017 Time Performed: 19:07:00 PTAGE: 81 years EKG: Atrial fibrillation NONSPECIFIC ST & T-WAVE ABNORMALITY ABNORMAL RHYTHM ECG PREVIOUS TRACING : 03/04/2017 13.27 Otherwise, largely unchanged. DOCTOR: James Goodson Interpretating Date/Time 08/23/2017 13:52:22
--- NOTE | 2017-08-23 13:55 | EKG ---
Date Performed: 08/22/2017 Time Performed: 20:08:01 PTAGE: 81 years EKG: ATRIAL FIBRILLATION WITH RAPID VENTRICULAR RESPONSE BORDERLINE LEFT AXIS DEVIATION NONSPECI FIC ST & T-WAVE ABNORMALITY ABNORMAL RHYTHM ECG PREVIOUS TRACING 08/22/2017 Atrial fibrillation is recurrent. ST Depression, cannot rule out is chemia. Clinical correlation recommended. DOCTOR: James Goodson Interpretating Date/Time 08/23/2017 13:53:08
--- NOTE | 2017-08-23 14:05 | HHI.PR ---
Subjective Remarks This is a 81-year-old female with a PMH of HTN, Hyperlipidemia, Anemia, COPD, O2 Dependent and DM who presented to the ER with complaints of SOB and wheezing x2 days. Has been using Nebulizer and MDI at home w/ no significant improvement. Reports significantly increased work of breathing, worse w/ exertion/ambulation. Denies fever, chills, cough or sick contacts. On arrival , pt w/ significant respiratory distress and work of breathing. BP 105/74, HR 107, O2 sat 90% on 2L NC. Hemoglobin 6.5, previously 10.3 on 03/08/17. Reports h/o anemia w/ transfusion approx 1yr ago. Chemistry essentially unremarkable. Troponin negative. BNP 239. CXR w/ basilar airspace disease. While in ER, pt w/ episode of A-fib w/ RVR after receiving treatment, s/p Lopressor w/ resolution, now back to NSR. S/p Levaquin and DuoNeb in ER as well. Pending 2u pRBC transfusion. 08-23 states she is breathing a little better now that she has received the blood transfusion States she is chronically on oxygen at home Has been feeling much weaker lately prior to getting the blood transfusion and was having worsening shortness of breath Will consult gastroenterology and sent stool for Hemoccult A.m. labs Objective Vitals Vital Signs Date Time Temp Pulse Resp B/P (MAP) Pulse Ox O2 Delivery O2 Flow Rate FiO2 08/23/17 12:00 98.6 72 20 152/65 (94) 97 08/23/17 08:00 98.2 82 22 158/70 (99) 94 08/23/17 08:00 Nasal Cannula 4.00 08/23/17 05:29 98.3 84 18 150/75 94 08/23/17 04:30 98.0 108 24 167/85 (112) 91 08/23/17 04:00 103 08/23/17 01:56 96.6 97 18 136/62 94 08/23/17 00:57 99.2 95 18 151/64 94 08/23/17 00:00 89 08/22/17 22:50 97.8 83 24 148/65 (92) 91 08/22/17 22:50 Nasal Cannula 4.00 08/22/17 22:38 82 24 175/73 (107) 91 Nasal Cannula 4.00 08/22/17 22:23 08/22/17 22:14 98.2 85 28 167/70 92 08/22/17 22:02 93 Nasal Cannula 4.00 08/22/17 20:24 116 32 158/72 (100) 97 Nasal Cannula 4.00 08/22/17 19:03 95 Nasal Cannula 2.00 08/22/17 18:45 98.8 107 22 105/74 (84) 90 I/O 08/22/17 08/22/17 08/22/17 08/23/17 08/23/17 08/23/17 07:00 15:00 23:00 07:00 15:00 23:00 Intake Total 1150 ml 1000 ml Output Total 400 ml Balance 1150 ml 600 ml Intake Oral 200 ml IV Total 1150 ml Packed Cells 800 ml Output Urine Total 400 ml # Voids 5 # Bowel Movements 0 Result Diagram: 08/23/17 0935 08/23/17 0935 Other Results Laboratory Tests Test 08/22/17 19:33 08/23/17 09:35 White Blood Count 8.5 TH/MM3 5.8 TH/MM3 Red Blood Count 2.92 MIL/MM3 3.41 MIL/MM3 Hemoglobin 6.5 GM/DL 8.2 GM/DL Hematocrit 21.0 % 25.7 % Mean Corpuscular Volume 71.9 FL 75.3 FL Mean Corpuscular Hemoglobin 22.3 PG 24.0 PG Mean Corpuscular Hemoglobin Concent 30.9 % 31.9 % Red Cell Distribution Width 17.4 % 20.3 % Platelet Count 315 TH/MM3 308 TH/MM3 Mean Platelet Volume 7.7 FL 7.7 FL Neutrophils (%) (Auto) 65.4 % 82.9 % Lymphocytes (%) (Auto) 21.3 % 12.0 % Monocytes (%) (Auto) 10.0 % 4.8 % Eosinophils (%) (Auto) 2.6 % 0.0 % Basophils (%) (Auto) 0.7 % 0.3 % Neutrophils # (Auto) 5.6 TH/MM3 4.8 TH/MM3 Lymphocytes # (Auto) 1.8 TH/MM3 0.7 TH/MM3 Monocytes # (Auto) 0.9 TH/MM3 0.3 TH/MM3 Eosinophils # (Auto) 0.2 TH/MM3 0.0 TH/MM3 Basophils # (Auto) 0.1 TH/MM3 0.0 TH/MM3 CBC Comment DIFF FINAL DIFF FINAL Differential Comment Blood Urea Nitrogen 22 MG/DL 19 MG/DL Creatinine 0.95 MG/DL 0.82 MG/DL Random Glucose 108 MG/DL 296 MG/DL Total Protein 7.1 GM/DL 7.2 GM/DL Albumin 3.2 GM/DL 3.2 GM/DL Calcium Level 8.9 MG/DL 9.1 MG/DL Alkaline Phosphatase 73 U/L 71 U/L Aspartate Amino Transf (AST/SGOT) 12 U/L 15 U/L Alanine Aminotransferase (ALT/SGPT) 13 U/L 11 U/L Total Bilirubin 0.4 MG/DL 0.9 MG/DL Sodium Level 142 MEQ/L 138 MEQ/L Potassium Level 4.1 MEQ/L 3.6 MEQ/L Chloride Level 108 MEQ/L 102 MEQ/L Carbon Dioxide Level 25.3 MEQ/L 24.8 MEQ/L Anion Gap 9 MEQ/L 11 MEQ/L Estimat Glomerular Filtration Rate 57 ML/MIN 67 ML/MIN Troponin I LESS THAN 0.02 NG/ML B-Type Natriuretic Peptide 239 PG/ML Imaging Last Impressions Chest X-Ray 08/22/17 0000 Signed Impressions: Service Date/Time: Tuesday, August 22, 2017 19:45 - CONCLUSION: 1. Basilar airspace disease, right greater than left with small effusion. Mal Main MD Objective Remarks GENERAL: Awake alert oriented talkative and cooperative SKIN: Warm and dry. HEAD: Atraumatic. Normocephalic. EYES: Pupils equal and round. No scleral icterus. No injection or drainage. Extractor muscles intact ENT: No nasal bleeding or discharge. Mucous membranes pink and moist. Tongue is midline NECK: Trachea midline. No JVD. Supple CARDIOVASCULAR: Regular rate and rhythm. S1 and S2 no S3 or S4 no heave or thrill or rub or gallop RESPIRATORY: No accessory muscle use. Clear to auscultation. Breath sounds equal bilaterally. Decreased breath sounds bilaterally GASTROINTESTINAL: Abdomen soft, non-tender, nondistended. Hepatic and splenic margins not palpable. Obese MUSCULOSKELETAL: Extremities without clubbing, cyanosis, or edema. No obvious deformities. NEUROLOGICAL: Awake and alert. No obvious cranial nerve deficits. Motor grossly within normal limits. 4 out of 5 muscle strength in the arms and legs. Normal speech. PSYCHIATRIC: Appropriate mood and affect; insight and judgment normal. Procedures NONE Medications and IVs Current Medications Methylprednisolone Sodium Succinate (SoluMEDROL INJ) 125 mg ONCE ONCE IV PUSH Last administered on 08/22/17at 19:38; Start 08/22/17 at 19:15; Stop 08/22/17 at 19:16; Status DC Albuterol/ Ipratropium (Duoneb Neb) 1 ampule Q15M INH Last administered on 08/22at 19:11; Start 08/22/17 at 19:15; Stop 08/22/17 at 19:46; Status DC Levofloxacin/ Dextrose 150 ml @ 100 mls/hr Q48H IV Last administered on at 20:05; Start 08/22/17 at 20:00; Stop 08/22/17 at 22:15; Status DC Aspirin (Aspirin Chew) 162 mg ONCE ONCE CHEW Last administered on 08/22/17at 20 :05; Start 08/22/17 at 20:00; Stop 08/22/17 at 20:01; Status DC Metoprolol Tartrate (Lopressor Inj) 2.5 mg ONCE ONCE IV PUSH Last administered on 08/22/17at 20:20; Start 08/22/17 at 20:15; Stop 08/22/17 at 20:16 ; Status DC Metoprolol Tartrate (Lopressor) 25 mg ONCE ONCE PO Last administered on at 20:19; Start 08/22/17 at 20:15; Stop 08/22/17 at 20:16; Status DC Sodium Chloride 250 ml @ 15 mls/hr ONCE ONCE IV Last administered on at 22:17; Start 08/22/17 at 20:15; Stop 08/23/17 at 12:54; Status DC Sodium Chloride 1,000 ml @ 999 mls/hr BOLUS ONCE IV Last administered on 08/22at 20:20; Start 08/22/17 at 20:15; Stop 08/22/17 at 21:15; Status DC Dextrose (D50w (Vial) Inj) 50 ml UNSCH PRN IV PUSH HYPOGLYCEMIA-SEE COMMENTS; Start 08/22/17 at 21:45 Glucagon (Glucagon Inj) 1 mg UNSCH PRN OTHER HYPOGLYCEMIA-SEE COMMENTS; Start 08/22/17 at 21:45 Insulin Aspart (NovoLOG SUPPLEMENTAL SCALE) 1 ACHS SLIDING SCALE SQ Last administered on 08/23/17at 12:00; Start 08/23/17 at 08:00 Sodium Chloride (NS Flush) 2 ml UNSCH PRN IV FLUSH FLUSH AFTER USING IV ACCESS ; Start 08/22/17 at 21:45 Sodium Chloride (NS Flush) 2 ml BID IV FLUSH Last administered on 08/23/17at 08: 58; Start 08/23/17 at 09:00 Ondansetron HCl (Zofran Inj) 4 mg Q6H PRN IVP NAUSEA OR VOMITING; Start at 21:45 Acetaminophen (Tylenol) 650 mg Q6H PRN PO FEVER/PAIN SCALE 1 TO 2; Start at 21:45 Acetaminophen/ Hydrocodone Bitart ([place] 5-325 Mg) 1 tab Q4H PRN PO PAIN SCALE 3 TO 5; Start 08/22/17 at 21:45 Morphine Sulfate (Morphine Inj) 2 mg Q3H PRN IV PUSH Pain 6-10; Start 08/22/17 at 21:45 Senna/Docusate Sodium (Janice-Colace) 1 tab BID PO Last administered on at 09:00; Start 08/23/17 at 09:00 Magnesium Hydroxide (Milk Of Magnesia Liq) 30 ml Q12H PRN PO Mild constipation ; Start 08/22/17 at 21:45 Sennosides (Senokot) 17.2 mg Q12H PRN PO Moderate constipation; Start 08/22/17 at 21:45 Bisacodyl (Dulcolax Supp) 10 mg DAILY PRN RECTAL SEVERE CONSITIPATION; Start at 21:45 Lactulose (Lactulose Liq) 30 ml DAILY PRN PO SEVERE CONSITIPATION; Start at 21:45 Budesonide/ Formoterol Fumarate (Symbicort 160-4.5 Mcg Inh) 2 puff Q12HR INH Last administered on 08/23/17at 11:25; Start 08/23/17 at 09:00 Levofloxacin/ Dextrose 150 ml @ 100 mls/hr Q24H IV ; Start 08/23/17 at 20:00 Albuterol/ Ipratropium (Duoneb Neb) 1 ampule Q4HR WHILE AWAKE NEB NEB Last administered on 08/23/17at 12:31; Start 08/23/17 at 08:00 Albuterol/ Ipratropium (Duoneb Neb) 1 ampule Q2HR NEB PRN NEB SOB/WHEEZING; Start 08/22/17 at 21:45 Amlodipine Besylate (Norvasc) 10 mg DAILY PO Last administered on 08/23/17at 08: 59; Start 08/23/17 at 09:00 Aspirin (Aspirin Chew) 81 mg DAILY CHEW Last administered on 08/23/17at 09:01; Start 08/23/17 at 09:00 Atorvastatin Calcium (Lipitor) 40 mg HS PO ; Start 08/23/17 at 21:00 Clopidogrel Bisulfate (Plavix) 75 mg DAILY PO Last administered on 08/23/17at 09 :00; Start 08/23/17 at 09:00 Lisinopril (Prinivil) 20 mg BID PO Last administered on 08/23/17at 09:01; Start 08/23/17 at 09:00 Metoprolol Tartrate (Lopressor) 25 mg QID PO Last administered on 08/23/17at 12: 26; Start 08/23/17 at 09:00 Pantoprazole Sodium (Protonix) 40 mg Q12HR PO Last administered on 08/23/17at 09 :00; Start 08/23/17 at 09:00 Tiotropium [place] (Spiriva Inh) 18 mcg DAILY INH Last administered on at 11:26; Start 08/23/17 at 09:00 Insulin Detemir (Levemir Inj) 15 units HS SQ ; Start 08/23/17 at 21:00; Stop at 21:00; Status DC Methylprednisolone Sodium Succinate (SoluMEDROL INJ) 40 mg Q6H IV PUSH Last administered on 08/23/17at 12:27; Start 08/23/17 at 02:00 Insulin Detemir (Levemir Inj) 15 units HS SQ ; Start 08/22/17 at 22:22 Sodium Chloride 250 ml @ 15 mls/hr ONCE ONCE IV Last administered on at 02:32; Start 08/23/17 at 02:30; Stop 08/23/17 at 19:09 Furosemide (Lasix Inj) 20 mg ONCE ONCE IV PUSH Last administered on 08/23/17at 02:32; Start 08/23/17 at 02:30; Stop 08/23/17 at 02:31; Status DC A/P Problem List: (1) COPD (chronic obstructive pulmonary disease) ICD Code: J44.9 - Chronic obstructive pulmonary disease, unspecified (2) Anemia ICD Code: D64.9 - Anemia, unspecified Status: Acute (3) Arrhythmia ICD Code: I49.9 - Cardiac arrhythmia, unspecified (4) DM (diabetes mellitus) ICD Code: E11.9 - Type 2 diabetes mellitus without complications Assessment and Plan A/P: 1. COPD: Chronic Respiratory Failure w/ Acute Exacerbation. Severe. Significant respiratory distress w/ increased work of breathing, persistent, + dyspnea w/ speech. O2 Dependent, monitor O2 closely. Solu-Medrol, Symbicort, DuoNeb-substitute for Xopenex in light of episode of arrhythmia. CXR w/ basilar airspace disease, images reviewed by me, s/p Ana, continue w/ IV Abx for empiric treatment of PNA. Add Mucinex and incentive spirometry 2. Arrhythmia: episode of what appeared to be A-fib w/ RVR while in ER, now back to NSR. Admit to [facility], place on telemetry, check Echo to eval for valvular abnormality/cardiomyopathy. Resume home Metoprolol. 3. Anemia: Critical Anemia, likely contributing to significant respiratory distress. No active bleeding. Hgb 6.5, previously 10.3 on 03/08/17. Transfuse 2u pRBC, repeat Hgb/Hct following transfusion. 4. DM: Sliding scale w/ Accu-Cheks. Resume home Insulin, hold Metformin 5. DVT Prophylaxis: SCD/Teds. 6. Social work for d/c planning as needed. Consult gastroenterology regarding the anemia suspected GI bleeding A.m. labs PT and OT to eval and treat Discharge Planning Await cardiology and GI evaluation Problem Qualifiers (1) Anemia: Qualified Codes: D64.9 - Anemia, unspecified Dwight Gutierrez DO Aug 23, 2017 14:05
[2017-08-23 14:59] LABS: AUTOMATED NEUTROPHIL # 6.1 TH/MM3 (1.8-7.7); BASOPHIL % 0.2 % (0.0-2.0); HEMATOCRIT 25.2 % (35.0-46.0); HEMOGLOBIN 8.4 GM/DL (11.6-15.3); LYMPH % 11.8 % (9.0-44.0); LYMPHOCYTE # 0.9 TH/MM3 (1.0-4.8); MEAN CELL VOLUME 75.9 FL (80.0-100.0); MEAN CORPUSCULAR HEMOGLOBIN 25.2 PG (27.0-34.0); MEAN CORPUSCULAR HGB CONC 33.3 % (32.0-36.0); MEAN PLATELET VOLUME 7.9 FL (7.0-11.0); MONOCYTE # 0.3 TH/MM3 (0-0.9); PLATELET COUNT 303 TH/MM3 (150-450); RED BLOOD COUNT 3.32 MIL/MM3 (4.00-5.30); RED CELL DISTRIBUTION WIDTH 19.4 % (11.6-17.2); WHITE BLOOD COUNT 7.2 TH/MM3 (4.0-11.0)
[2017-08-23 15:21] LABS: ALBUMIN 3.3 GM/DL (3.4-5.0); ALKALINE PHOSPHATASE 74 U/L (45-117); ALT (GPT) 13 U/L (10-53); AST (GOT) 9 U/L (15-37); BICARBONATE 24.1 MEQ/L (21.0-32.0); BLOOD UREA NITROGEN 23 MG/DL (7-18); CALCIUM 8.2 MG/DL (8.5-10.1); CHLORIDE 102 MEQ/L (98-107); CREATININE 1.07 MG/DL (0.50-1.00); FREE T4 1.26 NG/DL (0.76-1.46); GLOMERULAR FILTRATION RATE 49 ML/MIN (>89); GLUCOSE,RANDOM 292 MG/DL (74-106); MAGNESIUM 1.1 MG/DL (1.5-2.5); PHOSPHORUS 2.5 MG/DL (2.5-4.9); SODIUM (NA) 137 MEQ/L (136-145); TOTAL BILIRUBIN ADULT 0.8 MG/DL (0.2-1.0); TOTAL PROTEIN 7.4 GM/DL (6.4-8.2)
--- NOTE | 2017-08-23 16:24 | ECHRPT ---
Indication: a fib flutter CONCLUSIONS Mildly dilated left ventricle. Moderate concentric left ventricular hypertrophy. The left ventricular systolic function is low normal with an estimated ejection fraction in the rang e of 50- 55%. Trace mitral valve regurgitation. Severe thickening of the mitral valve leaflets. Mitral annular calcification is present. Mild aortic valve stenosis. Mild thickening of the aortic valve leaflets. Aortic valve mean gradient is 18 mmHg. The pulmonary valve is not well visualized. BP: 167 / 85 HR: 108 Rhythm: MEASUREMENTS (Male / Female) Normal Values Technical Quality: 2D ECHO LV Diastolic Diameter PLAX 5.9 cm 4.2 - 5.9 / 3.9 - 5.3 cm LV Systolic Diameter PLAX 4.7 cm IVS Diastolic Thickness 1.5 cm 0.6 - 1.0 / 0.6 - 0.9 cm LVPW Diastolic Thickness 1.1 cm 0.6 - 1.0 / 0.6 - 0.9 cm LV Relative Wall Thickness 0.4 LA Systolic Diameter LX 4.2 cm 3.0 - 4.0 / 2.7 - 3.8 cm DOPPLER AV Peak Velocity 278.0 cm/s AV Peak Gradient 30.9 mmHg AV Mean Gradient 18.0 mmHg AV Velocity Time Integral 71.9 cm LVOT Peak Velocity 98.2 cm/s LVOT Peak Gradient 3.9 mmHg LVOT Velocity Time Integral 28.3 cm MV Peak Velocity 181.0 cm/s MV Peak Gradient 13.1 mmHg MV Mean Velocity 104.0 cm/s MV Mean Gradient 5.0 mmHg Mitral E Point Velocity 139.0 cm/s Mitral A Point Velocity 118.0 cm/s Mitral E to A Ratio 1.2 TR Peak Velocity 181.7 cm/s TR Peak Gradient 13.2 mmHg FINDINGS LEFT VENTRICLE Mildly dilated left ventricle. Moderate concentric left ventricular hypertrophy. The left ventricular systolic function is low normal with an estimated ejection fraction in the rang e of 50- 55%. RIGHT VENTRICLE Normal right ventricular size and systolic function. LEFT ATRIUM The left atrial size is normal. RIGHT ATRIUM The right atrial size is normal. ATRIAL SEPTUM Normal atrial septal thickness without atrial level shunting by limited color doppler interrogation. AORTA The aortic root and proximal ascending aorta are normal in size on limited imaging. MITRAL VALVE Trace mitral valve regurgitation. Severe thickening of the mitral valve leaflets. Mitral annular calcification is present. AORTIC VALVE Mild aortic valve stenosis. Mild thickening of the aortic valve leaflets. Aortic valve mean gradient is 18 mmHg. TRICUSPID VALVE Structurally normal tricuspid valve. No tricuspid valve stenosis or regurgitation. PULMONARY VALVE The pulmonary valve is not well visualized. VESSELS The inferior vena cava is normal in size. PERICARDIUM No pericardial effusion. Gabriel Weeks MD, FACC (Electronically Signed) Final Date:23 August 2017 16:22
--- NOTE | 2017-08-23 16:24 | PD.CONS ---
HPI History of Present Illness This is a 81 year old obese female who was admitted to the hospital on she had sudden onset of shortness of breath weakness fatigue and mild wheezing for 2 days. Patient noted increased anxiety and tremors yesterday secondary to her weakness some she came into the hospital for further evaluation. Currently she denies any nausea vomiting diarrhea, but does have a history of constipation. Patient is currently on Plavix and aspirin. According to the record patient was seen in the hospital December 2015 with GI symptoms including anemia. EGD and colon showed reactive gastropathy her biopsy , gastritis in the antrum, multiple erosions. Colonoscopy showed inflammatory polyp on biopsy. She then was on Eliquis and was taken off and transitioned to Plavix and baby aspirin. Patient also notes she had a "tear" in her stomach, which was causing her bleeding. Currently patient denies any dysphagia, denies any bloating. Abdomen is noted to be round and soft, non-tympanic. Currently patient is sitting up in chair feeling somewhat better. Initial hemoglobin on admission was 6.5, transfusion 2 units, since hemoglobin now is 8.4 and her symptoms are much improved. (Nicol Amato) PFSH Past Medical History PMH: HTN, Hyperlipidemia, Anemia, COPD, O2 Dependent and DM Atrial fibrillation Anticoagulant therapy Eliquis now discontinued patient's now on Plavix and aspirin Past Surgical History PAST SURGICAL HISTORY: Appendectomy, Cholecystectomy, Cardiac Stent, Cataract Surgery, Tonsillectomy (Nicol Amato) Coded Allergies: penicillin G (Unverified Adverse Reaction, Intermediate, Rash, 08/22/17) Medications Administered Medications Medications (Trade) Dose Ordered Sig/Sushil Route PRN Reason Start Time Stop Time Status Last Admin Dose Admin Insulin Aspart (NovoLOG SUPPLEMENTAL SCALE) 1 ACHS SLIDING SCALE SQ 08/23/17 08:00 08/23/17 12:00 Sodium Chloride (NS Flush) 2 ml BID IV FLUSH 08/23/17 09:00 08/23/17 08:58 Senna/Docusate Sodium (Janice-Colace) 1 tab BID PO 08/23/17 09:00 08/23/17 09:00 Budesonide/ Formoterol Fumarate (Symbicort 160-4.5 Mcg Inh) 2 puff Q12HR INH 08/23/17 09:00 08/23/17 11:25 Albuterol/ Ipratropium (Duoneb Neb) 1 ampule Q4HR WHILE AWAKE NEB NEB 08/23/17 08:00 08/23/17 12:31 Amlodipine Besylate (Norvasc) 10 mg DAILY PO 08/23/17 09:00 08/23/17 08:59 Aspirin (Aspirin Chew) 81 mg DAILY CHEW 08/23/17 09:00 08/23/17 09:01 Clopidogrel Bisulfate (Plavix) 75 mg DAILY PO 08/23/17 09:00 08/23/17 09:00 Lisinopril (Prinivil) 20 mg BID PO 08/23/17 09:00 08/23/17 09:01 Metoprolol Tartrate (Lopressor) 25 mg QID PO 08/23/17 09:00 08/23/17 12:26 Pantoprazole Sodium (Protonix) 40 mg Q12HR PO 08/23/17 09:00 08/23/17 09:00 Tiotropium [place] (Spiriva Inh) 18 mcg DAILY INH 08/23/17 09:00 08/23/17 11:26 Methylprednisolone Sodium Succinate (SoluMEDROL INJ) 40 mg Q6H IV PUSH 08/23/17 02:00 08/23/17 12:27 Sodium Chloride 250 ml @ 15 mls/hr ONCE ONCE IV 08/23/17 02:30 08/23/17 19:09 08/23/17 02:32 Family History PAST FAMILY HISTORY: Reviewed. No h/o DM or CAD Social History PAST SOCIAL HISTORY: Negative for alcohol, tobacco or drugs. (Nicol Amato) Review of Systems Constitutional: COMPLAINS OF: Fatigue (Nicol Amato) GI Exam Vitals I&O Vital Signs Date Time Temp Pulse Resp B/P (MAP) Pulse Ox O2 Delivery O2 Flow Rate FiO2 08/23/17 12:00 98.6 72 20 152/65 (94) 97 08/23/17 08:00 98.2 82 22 158/70 (99) 94 08/23/17 08:00 89 08/23/17 08:00 Nasal Cannula 4.00 08/23/17 05:29 98.3 84 18 150/75 94 08/23/17 04:30 98.0 108 24 167/85 (112) 91 08/23/17 04:00 103 08/23/17 01:56 96.6 97 18 136/62 94 08/23/17 00:57 99.2 95 18 151/64 94 08/23/17 00:00 89 08/22/17 22:50 97.8 83 24 148/65 (92) 91 08/22/17 22:50 Nasal Cannula 4.00 08/22/17 22:38 82 24 175/73 (107) 91 Nasal Cannula 4.00 08/22/17 22:23 08/22/17 22:14 98.2 85 28 167/70 92 08/22/17 22:02 93 Nasal Cannula 4.00 08/22/17 20:24 116 32 158/72 (100) 97 Nasal Cannula 4.00 08/22/17 19:03 95 Nasal Cannula 2.00 08/22/17 18:45 98.8 107 22 105/74 (84) 90 I/O 08/22/17 08/22/17 08/22/17 08/23/17 08/23/17 08/23/17 07:00 15:00 23:00 07:00 15:00 23:00 Intake Total 1150 ml 1000 ml Output Total 400 ml Balance 1150 ml 600 ml Intake Oral 200 ml IV Total 1150 ml Packed Cells 800 ml Output Urine Total 400 ml # Voids 5 # Bowel Movements 0 Imaging Last Impressions Chest X-Ray 08/22/17 0000 Signed Impressions: Service Date/Time: Tuesday, August 22, 2017 19:45 - CONCLUSION: 1. Basilar airspace disease, right greater than left with small effusion. Mal Main MD Laboratory Test 08/22/17 19:33 08/23/17 09:35 08/23/17 13:25 White Blood Count 8.5 TH/MM3 5.8 TH/MM3 7.2 TH/MM3 Red Blood Count 2.92 MIL/MM3 3.41 MIL/MM3 3.32 MIL/MM3 Hemoglobin 6.5 GM/DL 8.2 GM/DL 8.4 GM/DL Hematocrit 21.0 % 25.7 % 25.2 % Mean Corpuscular Volume 71.9 FL 75.3 FL 75.9 FL Mean Corpuscular Hemoglobin 22.3 PG 24.0 PG 25.2 PG Mean Corpuscular Hemoglobin Concent 30.9 % 31.9 % 33.3 % Red Cell Distribution Width 17.4 % 20.3 % 19.4 % Platelet Count 315 TH/MM3 308 TH/MM3 303 TH/MM3 Mean Platelet Volume 7.7 FL 7.7 FL 7.9 FL Neutrophils (%) (Auto) 65.4 % 82.9 % 84.0 % Lymphocytes (%) (Auto) 21.3 % 12.0 % 11.8 % Monocytes (%) (Auto) 10.0 % 4.8 % 4.0 % Eosinophils (%) (Auto) 2.6 % 0.0 % 0.0 % Basophils (%) (Auto) 0.7 % 0.3 % 0.2 % Neutrophils # (Auto) 5.6 TH/MM3 4.8 TH/MM3 6.1 TH/MM3 Lymphocytes # (Auto) 1.8 TH/MM3 0.7 TH/MM3 0.9 TH/MM3 Monocytes # (Auto) 0.9 TH/MM3 0.3 TH/MM3 0.3 TH/MM3 Eosinophils # (Auto) 0.2 TH/MM3 0.0 TH/MM3 0.0 TH/MM3 Basophils # (Auto) 0.1 TH/MM3 0.0 TH/MM3 0.0 TH/MM3 CBC Comment DIFF FINAL DIFF FINAL DIFF FINAL Differential Comment Blood Urea Nitrogen 22 MG/DL 19 MG/DL 23 MG/DL Creatinine 0.95 MG/DL 0.82 MG/DL 1.07 MG/DL Random Glucose 108 MG/DL 296 MG/DL 292 MG/DL Total Protein 7.1 GM/DL 7.2 GM/DL 7.4 GM/DL Albumin 3.2 GM/DL 3.2 GM/DL 3.3 GM/DL Calcium Level 8.9 MG/DL 9.1 MG/DL 8.2 MG/DL Alkaline Phosphatase 73 U/L 71 U/L 74 U/L Aspartate Amino Transf (AST/SGOT) 12 U/L 15 U/L 9 U/L Alanine Aminotransferase (ALT/SGPT) 13 U/L 11 U/L 13 U/L Total Bilirubin 0.4 MG/DL 0.9 MG/DL 0.8 MG/DL Sodium Level 142 MEQ/L 138 MEQ/L 137 MEQ/L Potassium Level 4.1 MEQ/L 3.6 MEQ/L 3.6 MEQ/L Chloride Level 108 MEQ/L 102 MEQ/L 102 MEQ/L Carbon Dioxide Level 25.3 MEQ/L 24.8 MEQ/L 24.1 MEQ/L Anion Gap 9 MEQ/L 11 MEQ/L 11 MEQ/L Estimat Glomerular Filtration Rate 57 ML/MIN 67 ML/MIN 49 ML/MIN Troponin I LESS THAN 0.02 NG/ML B-Type Natriuretic Peptide 239 PG/ML Phosphorus Level 2.5 MG/DL Magnesium Level 1.1 MG/DL Free Thyroxine 1.26 NG/DL Thyroid Stimulating Hormone 3rd Gen 0.231 uIU/ML Physical Examination HEENT: Pupils round and reactive to light; normocephalic; atraumatic; no jaundice. Oral cavity clean no hemoptysis NECK: Neck is supple CHEST: Chest wall diminished sounds but no active rhonchi or wheezing CARDIAC: Rhythm controlled irregular ABDOMEN: Soft, large, round nontender; no hepatosplenomegaly; bowel sounds are present in all four quadrants. EXTREMITIES: No clubbing, cyanosis, or edema. SKIN: Normal; no rash; no jaundice. Obese [employer]ACH[employer]: No focal deficits; alert and oriented times three. (Nicol Amato) Assessment and Plan Plan Symptomatic anemia, patient has been on Plavix and aspirin before this admission , transfuse with 2 units hemoglobin now 8.4 no further shortness of breath or wheezing noted No nausea no vomiting no diarrhea History of constipation uses stool softeners and meds as needed at home Note rhythm is irregular patient is on telemetry may be in atrial fib controlled rate Patient seemed to think she had endoscopy and colonoscopy last year but according to the record it appears that it was December 2015. Showed gastritis and the antrum, multiple erosions, biopsy showed reactive gastropathy. Colonoscopy showed inflammatory: Polyp Plan Hold Plavix for now, will need to be off meds before further GI procedures can be performed unless emergency Stool softeners and MiraLAX daily PPI Hemoccult stools or emesis Consider EGD for Friday, possible colonoscopy if it's time to repeat, after transfusion patient is stable. Monitor hemoglobin and labs recheck in the a.m. Call for any acute bleed or hemorrhaging Supportive care For further recommendations will be based on patient's plan of care and symptoms Patient was seen by myself and Dr. Barreto,, note was done on his behalf (Nicol Amato) Plan Patient was seen and examined, agree with above-noted, Plavix and aspirin on hold for now,colon EGD will be scheduled for Friday, we will check CBC to make sure that it's stable, packed RBC as needed (Cl Barreto MD) Nicol Amato Aug 23, 2017 16:24 Cl Barreto MD Aug 23, 2017 20:14
[2017-08-23] MEDS: guaiFENesin E.R. 600 MG TAB PO SCH ×2 (17:14→21:13)
[2017-08-23] MEDS ORDERED: INSULIN DETEMIR 100 UNITS/ML VIAL SQ SCH (21:00)
[2017-08-23] MEDS: LEVOFLOXACIN 750 MG PREMIX INJ 150 ML IV SCH (21:12)
[2017-08-23] MEDS: ATORVASTATIN 40 MG TAB PO SCH (21:13)
[2017-08-23] MEDS: INSULIN DETEMIR 100 UNITS/ML VIAL SQ SCH (21:14)
[2017-08-23] MEDS ORDERED: ZOLPIDEM TARTRATE 5 MG TAB PO PRN (22:45)
[2017-08-24] VITALS (12 sets, daily range): BP systolic 107–153; BP diastolic 62–88; PULSE 71–88; RESP 18–20; TEMP 97.7–98.3; O2SAT 92–97
[2017-08-24] MEDS: methylPREDNISolone SOD SUCC 40 MG/1 ML VIAL IV PUSH SCH ×4 (01:01→21:28)
[2017-08-24] MEDS: INSULIN ASPART SUPPLEMENTAL SCALE SQ SCH ×4 (08:00→21:29)
[2017-08-24] MEDS: ASPIRIN 81 MG CHEW TAB CHEW SCH (08:22)
[2017-08-24] MEDS: guaiFENesin E.R. 600 MG TAB PO SCH ×2 (08:22→21:27)
[2017-08-24] MEDS: PANTOPRAZOLE SOD 40 MG DELAYED RELEASE TAB PO SCH ×2 (08:22→21:27)
[2017-08-24] MEDS: METOPROLOL TARTRATE 25 MG TAB PO SCH ×4 (08:22→21:27)
[2017-08-24] MEDS: DOCUSATE SODIUM 50 MG/SENNA 8.6 MG TAB PO SCH ×2 (08:22→21:29)
[2017-08-24] MEDS: LISINOPRIL 20 MG TAB PO SCH ×2 (08:22→21:27)
[2017-08-24] MEDS: BUDESONIDE-FORMOTEROL 160/4.5 MCG INHALER INH SCH ×2 (08:25→21:30)
[2017-08-24] MEDS: TIOTROPIUM BROMIDE 18 MCG INH INH SCH (08:25)
[2017-08-24] MEDS: SODIUM CHLORIDE 0.9% FLUSH 10 ML FLUSH IV FLUSH SCH ×2 (08:25→21:28)
[2017-08-24] MEDS: RESP: ALBUTEROL 2.5 MG/IPRATROPIUM 0.5 MG NEB (SCH) NEB ×4 (08:36→20:00)
[2017-08-24 10:32] LABS: AUTOMATED NEUTROPHIL # 12.3 TH/MM3 (1.8-7.7); BASOPHIL % 0.1 % (0.0-2.0); EOSINOPHIL % 0.3 % (0.0-4.0); HEMATOCRIT 26.9 % (35.0-46.0); HEMOGLOBIN 8.2 GM/DL (11.6-15.3); LYMPHOCYTE # 0.8 TH/MM3 (1.0-4.8); MEAN CELL VOLUME 77.1 FL (80.0-100.0); MEAN CORPUSCULAR HEMOGLOBIN 23.4 PG (27.0-34.0); MEAN CORPUSCULAR HGB CONC 30.4 % (32.0-36.0); MONO % 4.9 % (0.0-8.0); MONOCYTE # 0.7 TH/MM3 (0-0.9); NEUT % 88.7 % (16.0-70.0); PLATELET COUNT 315 TH/MM3 (150-450); RED BLOOD COUNT 3.49 MIL/MM3 (4.00-5.30); WHITE BLOOD COUNT 13.8 TH/MM3 (4.0-11.0)
[2017-08-24 10:46] LABS: HEMOGLOBIN A1C 6.3 % (4.3-6.0)
[2017-08-24 11:09] LABS: ACANTHOCYTES 1+ (NORMAL); ALBUMIN 3.2 GM/DL (3.4-5.0); ALT (GPT) 12 U/L (10-53); AST (GOT) 18 U/L (15-37); BANDS 5 % (0-6); BICARBONATE 24.2 MEQ/L (21.0-32.0); BLOOD UREA NITROGEN 28 MG/DL (7-18); CALCIUM 8.4 MG/DL (8.5-10.1); CHLORIDE 104 MEQ/L (98-107); CREATININE 0.88 MG/DL (0.50-1.00); GLOMERULAR FILTRATION RATE 62 ML/MIN (>89); GLUCOSE,RANDOM 237 MG/DL (74-106); LYMPHOCYTES 6 % (9-44); MAGNESIUM 1.5 MG/DL (1.5-2.5); MONOCYTES 5 % (0-8); MYELOCYTES 1 % (0-0); NEUTROPHIL # MANUAL DIFF 12.3 TH/MM3 (1.8-7.7); POLYS (SEG NEUTROPHILS) 83 % (16-70); SODIUM (NA) 138 MEQ/L (136-145)
[2017-08-24 11:10] LABS: HOWELL-JOLLY BODIES PRESENT (NONE SEEN); KERATOCYTES OCC (NORMAL)
[2017-08-24 11:13] LABS: ALKALINE PHOSPHATASE 67 U/L (45-117); TOTAL BILIRUBIN ADULT 0.4 MG/DL (0.2-1.0)
--- NOTE | 2017-08-24 11:24 | HHI.PR ---
Subjective Remarks This is a 81-year-old female with a PMH of HTN, Hyperlipidemia, Anemia, COPD, O2 Dependent and DM who presented to the ER with complaints of SOB and wheezing x2 days. Has been using Nebulizer and MDI at home w/ no significant improvement. Reports significantly increased work of breathing, worse w/ exertion/ambulation. Denies fever, chills, cough or sick contacts. On arrival , pt w/ significant respiratory distress and work of breathing. BP 105/74, HR 107, O2 sat 90% on 2L NC. Hemoglobin 6.5, previously 10.3 on 03/08/17. Reports h/o anemia w/ transfusion approx 1yr ago. Chemistry essentially unremarkable. Troponin negative. BNP 239. CXR w/ basilar airspace disease. While in ER, pt w/ episode of A-fib w/ RVR after receiving treatment, s/p Lopressor w/ resolution, now back to NSR. S/p Levaquin and DuoNeb in ER as well. Pending 2u pRBC transfusion. 08-23 states she is breathing a little better now that she has received the blood transfusion States she is chronically on oxygen at home Has been feeling much weaker lately prior to getting the blood transfusion and was having worsening shortness of breath Will consult gastroenterology and sent stool for Hemoccult A.m. labs 08-24 BREATHING BETTER WANTS A BETTER DIET TO HAVE EGD/?COLONOSCOPY TOMORROW WITH GI Objective Vitals Vital Signs Date Time Temp Pulse Resp B/P (MAP) Pulse Ox O2 Delivery O2 Flow Rate FiO2 08/24/17 08:39 97 Nasal Cannula 3.00 08/24/17 08:00 97.7 80 20 153/62 (92) 97 08/24/17 08:00 81 08/24/17 07:00 Nasal Cannula 4.00 08/24/17 04:00 97.9 87 18 137/63 (87) 93 08/24/17 04:00 Nasal Cannula 4.00 08/24/17 03:25 85 08/24/17 00:00 Nasal Cannula 4.00 08/24/17 00:00 98.3 88 18 125/88 (100) 93 08/23/17 23:47 86 08/23/17 21:09 97 Nasal Cannula 4.00 08/23/17 20:00 97.6 55 20 105/51 (69) 96 08/23/17 20:00 Nasal Cannula 4.00 08/23/17 19:44 71 08/23/17 16:00 96 08/23/17 16:00 98.4 78 20 136/62 (86) 94 08/23/17 12:00 98.6 72 20 152/65 (94) 97 08/23/17 12:00 76 I/O 08/23/17 08/23/17 08/23/17 08/24/17 08/24/17 08/24/17 07:00 15:00 23:00 07:00 15:00 23:00 Intake Total 1000 ml 480 ml 240 ml Output Total 400 ml 800 ml Balance 600 ml 480 ml -560 ml Intake Oral 200 ml 480 ml 240 ml Packed Cells 800 ml Output Urine Total 400 ml 800 ml # Voids 5 4 # Bowel Movements 0 0 Result Diagram: 08/24/17 0835 08/24/17 0835 Other Results Laboratory Tests Test 08/22/17 19:33 08/23/17 09:35 08/23/17 13:25 08/24/17 08:35 White Blood Count 8.5 TH/MM3 5.8 TH/MM3 7.2 TH/MM3 13.8 TH/MM3 Red Blood Count 2.92 MIL/MM3 3.41 MIL/MM3 3.32 MIL/MM3 3.49 MIL/MM3 Hemoglobin 6.5 GM/DL 8.2 GM/DL 8.4 GM/DL 8.2 GM/DL Hematocrit 21.0 % 25.7 % 25.2 % 26.9 % Mean Corpuscular Volume 71.9 FL 75.3 FL 75.9 FL 77.1 FL Mean Corpuscular Hemoglobin 22.3 PG 24.0 PG 25.2 PG 23.4 PG Mean Corpuscular Hemoglobin Concent 30.9 % 31.9 % 33.3 % 30.4 % Red Cell Distribution Width 17.4 % 20.3 % 19.4 % 20.0 % Platelet Count 315 TH/MM3 308 TH/MM3 303 TH/MM3 315 TH/MM3 Mean Platelet Volume 7.7 FL 7.7 FL 7.9 FL 8.0 FL Neutrophils (%) (Auto) 65.4 % 82.9 % 84.0 % 88.7 % Lymphocytes (%) (Auto) 21.3 % 12.0 % 11.8 % 6.0 % Monocytes (%) (Auto) 10.0 % 4.8 % 4.0 % 4.9 % Eosinophils (%) (Auto) 2.6 % 0.0 % 0.0 % 0.3 % Basophils (%) (Auto) 0.7 % 0.3 % 0.2 % 0.1 % Neutrophils # (Auto) 5.6 TH/MM3 4.8 TH/MM3 6.1 TH/MM3 12.3 TH/MM3 Lymphocytes # (Auto) 1.8 TH/MM3 0.7 TH/MM3 0.9 TH/MM3 0.8 TH/MM3 Monocytes # (Auto) 0.9 TH/MM3 0.3 TH/MM3 0.3 TH/MM3 0.7 TH/MM3 Eosinophils # (Auto) 0.2 TH/MM3 0.0 TH/MM3 0.0 TH/MM3 0.0 TH/MM3 Basophils # (Auto) 0.1 TH/MM3 0.0 TH/MM3 0.0 TH/MM3 0.0 TH/MM3 CBC Comment DIFF FINAL DIFF FINAL DIFF FINAL AUTO DIFF Differential Comment FINAL DIFF MANUAL Blood Urea Nitrogen 22 MG/DL 19 MG/DL 23 MG/DL 28 MG/DL Creatinine 0.95 MG/DL 0.82 MG/DL 1.07 MG/DL 0.88 MG/DL Random Glucose 108 MG/DL 296 MG/DL 292 MG/DL 237 MG/DL Total Protein 7.1 GM/DL 7.2 GM/DL 7.4 GM/DL 7.0 GM/DL Albumin 3.2 GM/DL 3.2 GM/DL 3.3 GM/DL 3.2 GM/DL Calcium Level 8.9 MG/DL 9.1 MG/DL 8.2 MG/DL 8.4 MG/DL Alkaline Phosphatase 73 U/L 71 U/L 74 U/L 67 U/L Aspartate Amino Transf (AST/SGOT) 12 U/L 15 U/L 9 U/L 18 U/L Alanine Aminotransferase (ALT/SGPT) 13 U/L 11 U/L 13 U/L 12 U/L Total Bilirubin 0.4 MG/DL 0.9 MG/DL 0.8 MG/DL 0.4 MG/DL Sodium Level 142 MEQ/L 138 MEQ/L 137 MEQ/L 138 MEQ/L Potassium Level 4.1 MEQ/L 3.6 MEQ/L 3.6 MEQ/L 4.2 MEQ/L Chloride Level 108 MEQ/L 102 MEQ/L 102 MEQ/L 104 MEQ/L Carbon Dioxide Level 25.3 MEQ/L 24.8 MEQ/L 24.1 MEQ/L 24.2 MEQ/L Anion Gap 9 MEQ/L 11 MEQ/L 11 MEQ/L 10 MEQ/L Estimat Glomerular Filtration Rate 57 ML/MIN 67 ML/MIN 49 ML/MIN 62 ML/MIN Troponin I LESS THAN 0.02 NG/ML B-Type Natriuretic Peptide 239 PG/ML Phosphorus Level 2.5 MG/DL 3.0 MG/DL Magnesium Level 1.1 MG/DL 1.5 MG/DL Free Thyroxine 1.26 NG/DL Thyroid Stimulating Hormone 3rd Gen 0.231 uIU/ML Differential Total Cells Counted 100 Neutrophils % (Manual) 83 % Band Neutrophils % 5 % Lymphocytes % 6 % Monocytes % 5 % Neutrophils # (Manual) 12.3 TH/MM3 Myelocytes 1 % Platelet Estimate NORMAL Platelet Morphology Comment NORMAL [place] Bodies PRESENT Acanthocytes 1+ Keratocytes OCC Imaging Last Impressions Chest X-Ray 08/22/17 0000 Signed Impressions: Service Date/Time: Tuesday, August 22, 2017 19:45 - CONCLUSION: 1. Basilar airspace disease, right greater than left with small effusion. Mal Main MD Objective Remarks GENERAL: Awake alert oriented talkative and cooperative SKIN: Warm and dry. HEAD: Atraumatic. Normocephalic. EYES: Pupils equal and round. No scleral icterus. No injection or drainage. Extractor muscles intact ENT: No nasal bleeding or discharge. Mucous membranes pink and moist. Tongue is midline NECK: Trachea midline. No JVD. Supple CARDIOVASCULAR: Regular rate and rhythm. S1 and S2 no S3 or S4 no heave or thrill or rub or gallop RESPIRATORY: No accessory muscle use. Clear to auscultation. Breath sounds equal bilaterally. Decreased breath sounds bilaterally GASTROINTESTINAL: Abdomen soft, non-tender, nondistended. Hepatic and splenic margins not palpable. Obese MUSCULOSKELETAL: Extremities without clubbing, cyanosis, or edema. No obvious deformities. NEUROLOGICAL: Awake and alert. No obvious cranial nerve deficits. Motor grossly within normal limits. 4 out of 5 muscle strength in the arms and legs. Normal speech. PSYCHIATRIC: Appropriate mood and affect; insight and judgment normal. Medications and IVs Current Medications Methylprednisolone Sodium Succinate (SoluMEDROL INJ) 125 mg ONCE ONCE IV PUSH Last administered on 08/22/17at 19:38; Start 08/22/17 at 19:15; Stop 08/22/17 at 19:16; Status DC Albuterol/ Ipratropium (Duoneb Neb) 1 ampule Q15M INH Last administered on 08/22at 19:11; Start 08/22/17 at 19:15; Stop 08/22/17 at 19:46; Status DC Levofloxacin/ Dextrose 150 ml @ 100 mls/hr Q48H IV Last administered on at 20:05; Start 08/22/17 at 20:00; Stop 08/22/17 at 22:15; Status DC Aspirin (Aspirin Chew) 162 mg ONCE ONCE CHEW Last administered on 08/22/17at 20 :05; Start 08/22/17 at 20:00; Stop 08/22/17 at 20:01; Status DC Metoprolol Tartrate (Lopressor Inj) 2.5 mg ONCE ONCE IV PUSH Last administered on 08/22/17at 20:20; Start 08/22/17 at 20:15; Stop 08/22/17 at 20:16 ; Status DC Metoprolol Tartrate (Lopressor) 25 mg ONCE ONCE PO Last administered on at 20:19; Start 08/22/17 at 20:15; Stop 08/22/17 at 20:16; Status DC Sodium Chloride 250 ml @ 15 mls/hr ONCE ONCE IV Last administered on at 22:17; Start 08/22/17 at 20:15; Stop 08/23/17 at 12:54; Status DC Sodium Chloride 1,000 ml @ 999 mls/hr BOLUS ONCE IV Last administered on 08/22at 20:20; Start 08/22/17 at 20:15; Stop 08/22/17 at 21:15; Status DC Dextrose (D50w (Vial) Inj) 50 ml UNSCH PRN IV PUSH HYPOGLYCEMIA-SEE COMMENTS; Start 08/22/17 at 21:45 Glucagon (Glucagon Inj) 1 mg UNSCH PRN OTHER HYPOGLYCEMIA-SEE COMMENTS; Start 08/22/17 at 21:45 Insulin Aspart (NovoLOG SUPPLEMENTAL SCALE) 1 ACHS SLIDING SCALE SQ Last administered on 08/24/17at 08:00; Start 08/23/17 at 08:00 Sodium Chloride (NS Flush) 2 ml UNSCH PRN IV FLUSH FLUSH AFTER USING IV ACCESS ; Start 08/22/17 at 21:45 Sodium Chloride (NS Flush) 2 ml BID IV FLUSH Last administered on 08/24/17at 08: 25; Start 08/23/17 at 09:00 Ondansetron HCl (Zofran Inj) 4 mg Q6H PRN IVP NAUSEA OR VOMITING; Start at 21:45 Acetaminophen (Tylenol) 650 mg Q6H PRN PO FEVER/PAIN SCALE 1 TO 2; Start at 21:45 Acetaminophen/ Hydrocodone Bitart ([place] 5-325 Mg) 1 tab Q4H PRN PO PAIN SCALE 3 TO 5; Start 08/22/17 at 21:45 Morphine Sulfate (Morphine Inj) 2 mg Q3H PRN IV PUSH Pain 6-10; Start 08/22/17 at 21:45 Senna/Docusate Sodium (Janice-Colace) 1 tab BID PO Last administered on at 21:13; Start 08/23/17 at 09:00 Magnesium Hydroxide (Milk Of Magnesia Liq) 30 ml Q12H PRN PO Mild constipation ; Start 08/22/17 at 21:45 Sennosides (Senokot) 17.2 mg Q12H PRN PO Moderate constipation; Start 08/22/17 at 21:45 Bisacodyl (Dulcolax Supp) 10 mg DAILY PRN RECTAL SEVERE CONSITIPATION; Start at 21:45 Lactulose (Lactulose Liq) 30 ml DAILY PRN PO SEVERE CONSITIPATION; Start at 21:45 Budesonide/ Formoterol Fumarate (Symbicort 160-4.5 Mcg Inh) 2 puff Q12HR INH Last administered on 08/24/17at 08:25; Start 08/23/17 at 09:00 Levofloxacin/ Dextrose 150 ml @ 100 mls/hr Q24H IV Last administered on at 21:12; Start 08/23/17 at 20:00 Albuterol/ Ipratropium (Duoneb Neb) 1 ampule Q4HR WHILE AWAKE NEB NEB Last administered on 08/24/17at 08:36; Start 08/23/17 at 08:00 Albuterol/ Ipratropium (Duoneb Neb) 1 ampule Q2HR NEB PRN NEB SOB/WHEEZING; Start 08/22/17 at 21:45 Amlodipine Besylate (Norvasc) 10 mg DAILY PO Last administered on 08/24/17 08: 22; Start 08/23/17 at 09:00 Aspirin (Aspirin Chew) 81 mg DAILY CHEW Last administered on 08/24/17 08:22; Start 08/23/17 at 09:00 Atorvastatin Calcium (Lipitor) 40 mg HS PO Last administered on 08/23/17 21:13 ; Start 08/23/17 at 21:00 Clopidogrel Bisulfate (Plavix) 75 mg DAILY PO Last administered on 08/23/17at 09 :00; Start 08/23/17 at 09:00; Stop 08/23/17 at 16:41; Status DC Lisinopril (Prinivil) 20 mg BID PO Last administered on 08/24/17 08:22; Start 08/23/17 at 09:00 Metoprolol Tartrate (Lopressor) 25 mg QID PO Last administered on 08/24/17 08: 22; Start 08/23/17 at 09:00 Pantoprazole Sodium (Protonix) 40 mg Q12HR PO Last administered on 08/24/17 08 :22; Start 08/23/17 at 09:00 Tiotropium [place] (Spiriva Inh) 18 mcg DAILY INH Last administered on at 08:25; Start 08/23/17 at 09:00 Insulin Detemir (Levemir Inj) 15 units HS SQ ; Start 08/23/17 at 21:00; Stop at 21:00; Status DC Methylprednisolone Sodium Succinate (SoluMEDROL INJ) 40 mg Q6H IV PUSH Last administered on 08/24/17 08:24; Start 08/23/17 at 02:00 Insulin Detemir (Levemir Inj) 15 units HS SQ Last administered on 08/23/17at 21: 14; Start 08/22/17 at 22:22 Sodium Chloride 250 ml @ 15 mls/hr ONCE ONCE IV Last administered on at 02:32; Start 08/23/17 at 02:30; Stop 08/23/17 at 19:09; Status DC Furosemide (Lasix Inj) 20 mg ONCE ONCE IV PUSH Last administered on 08/23/17at 02:32; Start 08/23/17 at 02:30; Stop 08/23/17 at 02:31; Status DC Guaifenesin (Mucinex Er) 600 mg BID PO Last administered on 08/24/17at 08:22; Start 08/23/17 at 15:00 Zolpidem Tartrate (Ambien) 5 mg HS PRN PO INSOMNIA; Start 08/23/17 at 22:45; Stop 08/23/17 at 22:51; Status DC A/P Problem List: (1) COPD (chronic obstructive pulmonary disease) ICD Code: J44.9 - Chronic obstructive pulmonary disease, unspecified (2) Anemia ICD Code: D64.9 - Anemia, unspecified Status: Acute (3) Arrhythmia ICD Code: I49.9 - Cardiac arrhythmia, unspecified (4) DM (diabetes mellitus) ICD Code: E11.9 - Type 2 diabetes mellitus without complications Assessment and Plan A/P: 1. COPD: Chronic Respiratory Failure w/ Acute Exacerbation. Severe. Significant respiratory distress w/ increased work of breathing, persistent, + dyspnea w/ speech. O2 Dependent, monitor O2 closely. Solu-Medrol, Symbicort, DuoNeb-substitute for Xopenex in light of episode of arrhythmia. CXR w/ basilar airspace disease, images reviewed by me, s/p Ana, continue w/ IV Abx for empiric treatment of PNA. Add Mucinex and incentive spirometry 2. Arrhythmia: episode of what appeared to be A-fib w/ RVR while in ER, now back to NSR. Admit to [facility], place on telemetry, check Echo to eval for valvular abnormality/cardiomyopathy. Resume home Metoprolol. 3. Anemia: Critical Anemia, likely contributing to significant respiratory distress. No active bleeding. Hgb 6.5, previously 10.3 on 03/08/17. Transfuse 2u pRBC, repeat Hgb/Hct following transfusion. FOR EGD/COLONSCOPY? TOMORROW 1- 29 4. DM: Sliding scale w/ Accu-Cheks. Resume home Insulin, hold Metformin 5. DVT Prophylaxis: SCD/Teds. 6. Social work for d/c planning as needed. Consult gastroenterology regarding the anemia suspected GI bleeding A.m. labs PT and OT to eval and treat Discharge Planning FOR EGD./COLONOSCOPY 08-25 Problem Qualifiers (1) Anemia: Qualified Codes: D64.9 - Anemia, unspecified Dwight Gutierrez DO Aug 24, 2017 11:24
--- NOTE | 2017-08-24 12:12 | HHI.GIFU ---
Subjective Remarks Up in the chair Denies any nausea vomiting diarrhea constipation Round soft obese abdomen Afebrile Objective Vitals I&O Vital Signs Date Time Temp Pulse Resp B/P (MAP) Pulse Ox O2 Delivery O2 Flow Rate FiO2 08/24/17 08:39 97 Nasal Cannula 3.00 08/24/17 08:00 97.7 80 20 153/62 (92) 97 08/24/17 08:00 81 08/24/17 07:00 Nasal Cannula 4.00 08/24/17 04:00 97.9 87 18 137/63 (87) 93 08/24/17 04:00 Nasal Cannula 4.00 08/24/17 03:25 85 08/24/17 00:00 Nasal Cannula 4.00 08/24/17 00:00 98.3 88 18 125/88 (100) 93 08/23/17 23:47 86 08/23/17 21:09 97 Nasal Cannula 4.00 08/23/17 20:00 97.6 55 20 105/51 (69) 96 08/23/17 20:00 Nasal Cannula 4.00 08/23/17 19:44 71 08/23/17 16:00 96 08/23/17 16:00 98.4 78 20 136/62 (86) 94 I/O 08/23/17 08/23/17 08/23/17 08/24/17 08/24/17 08/24/17 07:00 15:00 23:00 07:00 15:00 23:00 Intake Total 1000 ml 480 ml 240 ml Output Total 400 ml 800 ml Balance 600 ml 480 ml -560 ml Intake Oral 200 ml 480 ml 240 ml Packed Cells 800 ml Output Urine Total 400 ml 800 ml # Voids 5 4 # Bowel Movements 0 0 Laboratory Laboratory Tests Test 08/23/17 13:25 08/24/17 08:35 White Blood Count 7.2 13.8 Red Blood Count 3.32 3.49 Hemoglobin 8.4 8.2 Hematocrit 25.2 26.9 Mean Corpuscular Volume 75.9 77.1 Mean Corpuscular Hemoglobin 25.2 23.4 Mean Corpuscular Hemoglobin Concent 33.3 30.4 Red Cell Distribution Width 19.4 20.0 Platelet Count 303 315 Mean Platelet Volume 7.9 8.0 Neutrophils (%) (Auto) 84.0 88.7 Lymphocytes (%) (Auto) 11.8 6.0 Monocytes (%) (Auto) 4.0 4.9 Eosinophils (%) (Auto) 0.0 0.3 Basophils (%) (Auto) 0.2 0.1 Neutrophils # (Auto) 6.1 12.3 Lymphocytes # (Auto) 0.9 0.8 Monocytes # (Auto) 0.3 0.7 Eosinophils # (Auto) 0.0 0.0 Basophils # (Auto) 0.0 0.0 CBC Comment DIFF FINAL AUTO DIFF Differential Comment FINAL DIFF MANUAL Blood Urea Nitrogen 23 28 Creatinine 1.07 0.88 Random Glucose 292 237 Total Protein 7.4 7.0 Albumin 3.3 3.2 Calcium Level 8.2 8.4 Phosphorus Level 2.5 3.0 Magnesium Level 1.1 1.5 Alkaline Phosphatase 74 67 Aspartate Amino Transf (AST/SGOT) 9 18 Alanine Aminotransferase (ALT/SGPT) 13 12 Total Bilirubin 0.8 0.4 Sodium Level 137 138 Potassium Level 3.6 4.2 Chloride Level 102 104 Carbon Dioxide Level 24.1 24.2 Anion Gap 11 10 Estimat Glomerular Filtration Rate 49 62 Hemoglobin A1c 6.3 Free Thyroxine 1.26 Thyroid Stimulating Hormone 3rd Gen 0.231 Differential Total Cells Counted 100 Neutrophils % (Manual) 83 Band Neutrophils % 5 Lymphocytes % 6 Monocytes % 5 Neutrophils # (Manual) 12.3 Myelocytes 1 Platelet Estimate NORMAL Platelet Morphology Comment NORMAL [place] Bodies PRESENT Acanthocytes 1+ Keratocytes OCC Imaging Last Impressions Chest X-Ray 08/22/17 0000 Signed Impressions: Service Date/Time: Tuesday, August 22, 2017 19:45 - CONCLUSION: 1. Basilar airspace disease, right greater than left with small effusion. Mal Main MD Physical Exam HEENT: PERRLA, pale, oral cavity clear NECK: Neck obese CHEST: Chest is clear to auscultation and percussion. CARDIAC: Regular rate and rhythm ABDOMEN: Large, round, Soft, nontender; no hepatosplenomegaly; bowel sounds are present in all four quadrants. EXTREMITIES: No clubbing, cyanosis, or edema. SKIN: Normal; no rash; no jaundice. SURGICAL ASST: No focal deficits; alert and oriented times three. Assessment and Plan Plan Assessment/history Symptomatic anemia, patient has been on Plavix and aspirin before this admission , transfuse with 2 units hemoglobin now 8.4 no further shortness of breath or wheezing noted History of constipation uses stool softeners and meds as needed at home Note rhythm is irregular patient is on telemetry may be in atrial fib controlled rate Patient seemed to think she had endoscopy and colonoscopy last year but according to the record it appears that it was December 2015. Showed gastritis and the antrum, multiple erosions, biopsy showed reactive gastropathy. Colonoscopy showed inflammatory: Polyp Will plan for EGD and colonoscopy in a.m.. Current GI symptoms are stable Plan EGD colonoscopy in a.m., Consents Nothing by mouth at midnight tonight GoLYTELY prep Blood thinners Plavix and aspirin on hold Clear liquids for the rest of the day Monitor labs Call for any acute bleeding Further recommendations after procedures PPI This patient is been seen by myself and Dr. Barreto, note written on his behalf Nicol Amato Aug 24, 2017 12:12
[2017-08-24] MEDS ORDERED: GABA100C4 PO (14:21)
[2017-08-24] MEDS ORDERED: PEG (High)/E-LYTE SOLN 4000 ML BTL PO ONE (16:00)
[2017-08-24] MEDS: ATORVASTATIN 40 MG TAB PO SCH (21:27)
[2017-08-24] MEDS: GABAPENTIN 100 MG CAP PO SCH (21:27)
[2017-08-24] MEDS: LEVOFLOXACIN 750 MG PREMIX INJ 150 ML IV SCH (21:28)
[2017-08-24] MEDS: INSULIN DETEMIR 100 UNITS/ML VIAL SQ SCH (21:29)
[2017-08-25] VITALS (13 sets, daily range): BP systolic 121–158; BP diastolic 57–79; PULSE 70–96; RESP 18–20; TEMP 97.7–98.3; O2SAT 95–98
[2017-08-25] MEDS: methylPREDNISolone SOD SUCC 40 MG/1 ML VIAL IV PUSH SCH ×3 (01:38→14:05)
[2017-08-25] MEDS ORDERED: SODIUM CHLORID 0.9% 500 ML IV PRN (06:00)
[2017-08-25] MEDS ORDERED: CHLORHEXIDINE GLUCONATE 2 % 1 PACK (2 CLOTHS) TOPICAL PRN (06:00)
[2017-08-25] MEDS ORDERED: METOPROLOL TARTRATE 25 MG TAB PO PRN (06:00)
[2017-08-25] MEDS ORDERED: LACTATED RINGER'S 1000 ML IV PRN (06:00)
[2017-08-25] MEDS ORDERED: POVIDONE IODINE 5% (ANTISEPSIS KIT) 4 APPLICATIONS EACH NARE PRN (06:00)
[2017-08-25] MEDS: INSULIN ASPART SUPPLEMENTAL SCALE SQ SCH ×4 (08:00→21:20)
[2017-08-25] MEDS: RESP: ALBUTEROL 2.5 MG/IPRATROPIUM 0.5 MG NEB (SCH) NEB ×4 (08:19→19:42)
[2017-08-25] MEDS: DOCUSATE SODIUM 50 MG/SENNA 8.6 MG TAB PO SCH ×2 (09:00→21:00)
[2017-08-25] MEDS: guaiFENesin E.R. 600 MG TAB PO SCH ×2 (09:00→21:19)
[2017-08-25] MEDS: ASPIRIN 81 MG CHEW TAB CHEW SCH (09:00)
[2017-08-25] MEDS: METOPROLOL TARTRATE 25 MG TAB PO SCH ×4 (09:19→21:18)
[2017-08-25] MEDS: LISINOPRIL 20 MG TAB PO SCH ×2 (09:19→21:19)
[2017-08-25] MEDS: PANTOPRAZOLE SOD 40 MG DELAYED RELEASE TAB PO SCH ×2 (09:19→21:18)
[2017-08-25] MEDS: SODIUM CHLORIDE 0.9% FLUSH 10 ML FLUSH IV FLUSH SCH ×2 (09:21→21:18)
[2017-08-25] MEDS: TIOTROPIUM BROMIDE 18 MCG INH INH SCH (09:26)
[2017-08-25] MEDS: BUDESONIDE-FORMOTEROL 160/4.5 MCG INHALER INH SCH ×2 (09:26→21:18)
--- NOTE | 2017-08-25 11:14 | PD.PROCEDR ---
GI Procedure PROCEDURE PERFORMED Upper endoscopy with biopsy Colonoscopy with snare polypectomy INDICATION FOR PROCEDURE Anemia PROCEDURE: The procedure, risks and benefits were discussed with Ms. Hughes and informed consent was obtained. Anesthesia sedated her with Diprivan. She was placed in the left lateral decubitus position. EGD: The Pentax videoscope was introduced through the oropharynx and advanced to the second portion of the duodenum under direct visualization. Retroflexion was performed in the stomach. Biopsy from the antrum Colonoscopy: The Pentax videoscope was introduced through the rectum and advanced to cecum which was identified by the ileocecal valve and appendiceal orifice. Retroflexion was performed in the rectum. Colonic prep was good with some stool may interfere with the vision of small lesion ESTIMATED BLOOD LOSS: None SPECIMENS REMOVED: Antrum 2 colon polyps from the rectum Complications None IMPRESSION: Minimal redness possible gastritis in the stomach Small hemorrhoids 2 polyps in the rectum removed by snare No sign of active bleeding PLAN: Avoid NSAIDs Follow-up biopsy May feed patient Capsule endoscopy as an outpatient Monitor H&H with packed RBC as needed Cl Barreto MD Aug 25, 2017 11:14
--- NOTE | 2017-08-25 11:16 | HHI.GIFU ---
Subjective Remarks Patient laying in bed comfortably, deny any GI bleed, no black stool according to her, tolerated prep Objective Vitals I&O Vital Signs Date Time Temp Pulse Resp B/P (MAP) Pulse Ox O2 Delivery O2 Flow Rate FiO2 08/25/17 10:20 98.3 80 20 158/74 (102) 96 08/25/17 08:20 98 Nasal Cannula 3.00 08/25/17 07:00 Nasal Cannula 3.00 08/25/17 04:00 Nasal Cannula 4.00 08/25/17 04:00 98.3 80 20 158/74 (102) 96 08/25/17 03:42 84 08/25/17 00:00 Nasal Cannula 4.00 08/25/17 00:00 98.1 81 18 144/59 (87) 97 08/24/17 23:47 87 08/24/17 20:30 92 21 08/24/17 20:00 98.1 71 20 107/63 (78) 93 08/24/17 20:00 Room Air 08/24/17 19:46 81 08/24/17 16:00 97.9 80 18 148/73 (98) 96 08/24/17 12:05 88 08/24/17 12:00 98.0 73 18 134/62 (86) 96 I/O 08/24/17 08/24/17 08/24/17 08/25/17 08/25/17 08/25/17 07:00 15:00 23:00 07:00 15:00 23:00 Intake Total 240 ml 720 ml Output Total 800 ml Balance -560 ml 720 ml Intake Oral 240 ml 720 ml Output Urine Total 800 ml # Voids 8 # Bowel Movements 0 1 Physical Exam HEENT: PERRLA, pale, oral cavity clear NECK: Neck obese CHEST: Chest is clear to auscultation and percussion. CARDIAC: Regular rate and rhythm ABDOMEN: Large, round, Soft, nontender; no hepatosplenomegaly; bowel sounds are present in all four quadrants. EXTREMITIES: No clubbing, cyanosis, or edema. SKIN: Normal; no rash; no jaundice. MARKETING SERVICES MANAGER: No focal deficits; alert and oriented times three. Assessment and Plan Plan Assessment/history Symptomatic anemia, patient has been on Plavix and aspirin before this admission , transfuse with 2 units hemoglobin now 8.4 no further shortness of breath or wheezing noted History of constipation uses stool softeners and meds as needed at home Note rhythm is irregular patient is on telemetry may be in atrial fib controlled rate Patient seemed to think she had endoscopy and colonoscopy last year but according to the record it appears that it was December 2015. Showed gastritis and the antrum, multiple erosions, biopsy showed reactive gastropathy. Colonoscopy showed inflammatory: Polyp Will plan for EGD and colonoscopy in a.m.. Current GI symptoms are stable 08/25/2017 patient is doing well, no sign of active bleeding, had upper endoscopy and colonoscopy IMPRESSION: Minimal redness possible gastritis in the stomach Small hemorrhoids 2 polyps in the rectum removed by snare No sign of active bleeding PLAN: Avoid NSAIDs Follow-up biopsy May feed patient Capsule endoscopy as an outpatient Monitor H&H with packed RBC as needed Consider hematology consult because of the anemia Cl Barreto MD Aug 25, 2017 11:16
[2017-08-25] MEDS ORDERED: LIDOCAINE HCL 1% PF 5 ML SYRINGE OTHER ONE (12:00)
[2017-08-25] MEDS ORDERED: PROPOFOL 200 MG/20 ML AMP IV ONE (12:00)
--- NOTE | 2017-08-25 17:11 | HHI.PR ---
Subjective Remarks This is a 81-year-old female with a PMH of HTN, Hyperlipidemia, Anemia, COPD, O2 Dependent and DM who presented to the ER with complaints of SOB and wheezing x2 days. Has been using Nebulizer and MDI at home w/ no significant improvement. Reports significantly increased work of breathing, worse w/ exertion/ambulation. Denies fever, chills, cough or sick contacts. On arrival , pt w/ significant respiratory distress and work of breathing. BP 105/74, HR 107, O2 sat 90% on 2L NC. Hemoglobin 6.5, previously 10.3 on 03/08/17. Reports h/o anemia w/ transfusion approx 1yr ago. Chemistry essentially unremarkable. Troponin negative. BNP 239. CXR w/ basilar airspace disease. While in ER, pt w/ episode of A-fib w/ RVR after receiving treatment, s/p Lopressor w/ resolution, now back to NSR. S/p Levaquin and DuoNeb in ER as well. Pending 2u pRBC transfusion. 08-23 states she is breathing a little better now that she has received the blood transfusion States she is chronically on oxygen at home Has been feeling much weaker lately prior to getting the blood transfusion and was having worsening shortness of breath Will consult gastroenterology and sent stool for Hemoccult A.m. labs 08-24 BREATHING BETTER WANTS A BETTER DIET TO HAVE EGD/?COLONOSCOPY TOMORROW WITH GI 08/25. Patient says she is feeling all right. Status post EGD/colonoscopy. denies any bleeding. Patient reports chronic history of iron deficiency anemia , however quit taking her iron supplement 2 months ago due to constipation. Objective Vital Signs Date Time Temp Pulse Resp B/P (MAP) Pulse Ox O2 Delivery O2 Flow Rate FiO2 08/25/17 12:05 97.9 96 19 133/78 (96) 95 08/25/17 11:20 97.7 72 18 147/80 (102) 97 Room Air 08/25/17 10:20 98.3 80 20 158/74 (102) 96 08/25/17 08:20 98 Nasal Cannula 3.00 08/25/17 08:05 97.8 70 20 155/79 (104) 97 08/25/17 07:58 75 08/25/17 07:00 Nasal Cannula 3.00 08/25/17 04:00 Nasal Cannula 4.00 1/29/18 04:00 98.3 80 20 158/74 (102) 96 08/25/17 03:42 84 08/25/17 00:00 Nasal Cannula 4.00 08/25/17 00:00 98.1 81 18 144/59 (87) 97 08/24/17 23:47 87 08/24/17 20:30 92 21 08/24/17 20:00 98.1 71 20 107/63 (78) 93 08/24/17 20:00 Room Air 08/24/17 19:46 81 I/O 08/24/17 08/24/17 08/24/17 08/25/17 08/25/17 08/25/17 07:00 15:00 23:00 07:00 15:00 23:00 Intake Total 240 ml 720 ml 200 ml Output Total 800 ml Balance -560 ml 720 ml 200 ml Intake Oral 240 ml 720 ml Other 200 ml Output Urine Total 800 ml # Voids 8 # Bowel Movements 0 1 Result Diagram: 08/24/1735 08/24/1735 Objective Remarks GENERAL: Patient sitting up in bed. Appears comfortable. SKIN: Warm and dry. HEAD: Normocephalic. EYES: No scleral icterus. No injection or drainage. NECK: Supple, trachea midline. No JVD. CARDIOVASCULAR: Regular rate and rhythm without murmurs, gallops, or rubs. RESPIRATORY: Breath sounds equal bilaterally. No accessory muscle use. GASTROINTESTINAL: Abdomen soft, non-tender, nondistended. MUSCULOSKELETAL: No cyanosis, or edema. BACK: Nontender without obvious deformity. No CVA tenderness. A/P Assessment and Plan // COPD: Chronic Respiratory Failure w/ Acute Exacerbation. Severe. Significant respiratory distress w/ increased work of breathing, persistent, + dyspnea w/ speech. O2 Dependent, monitor O2 closely. Solu-Medrol, Symbicort, DuoNeb-substitute for Xopenex in light of episode of arrhythmia. CXR w/ basilar airspace disease, images reviewed by , s/p Ana, continue w/ IV Abx for empiric treatment of PNA. Add Mucinex and incentive spirometry = Taper steroids. Obtain to monitor. //Arrhythmia: episode of what appeared to be A-fib w/ RVR while in ER, now back to NSR. Admit to [facility], place on telemetry, check Echo to eval for valvular abnormality/cardiomyopathy. Resume home Metoprolol. //Anemia: Critical Anemia, likely contributing to significant respiratory distress. No active bleeding. Hgb 6.5, previously 10.3 on 03/08/17. Transfuse 2u pRBC, repeat Hgb/Hct following transfusion. = Hemoglobin 8.2. EGD/colonoscopy with some hemorrhoids, polyps with biopsies pending. No indication of bleeding. Hematology consult ordered as per GI recommendations. // DM: Sliding scale w/ Accu-Cheks. Resume home Insulin, hold Metformin = Blood sugars elevated in the mid 200s. Expect to improve with tapering steroids. // DVT Prophylaxis: SCD/Teds. Discharge Planning If hemoglobin stable tomorrow, likely can discharge PT following. Appreciate assistance. Recommends home with home health. Ck Walton MD Aug 25, 2017 17:11
[2017-08-25] MEDS ORDERED: IRON SUCROSE INJ 100 MG in SODIUM CHLORIDE 0.9% INJ 100 ML IV ONE (18:00)
[2017-08-25 21:04] LABS: FERRITIN 32 NG/ML (8-252)
[2017-08-25] MEDS: LEVOFLOXACIN 750 MG PREMIX INJ 150 ML IV SCH (21:18)
[2017-08-25] MEDS: predniSONE 20 MG TAB PO SCH (21:18)
[2017-08-25 21:19] LABS: % SATURATION IRON PROFILE 8.1 % (20-50); IRON (FE) 35 MCG/DL (50-170); TOTAL IRON BINDING CAPACITY 434 MCG/DL (250-450)
[2017-08-25] MEDS: ATORVASTATIN 40 MG TAB PO SCH (21:19)
[2017-08-25] MEDS: GABAPENTIN 100 MG CAP PO SCH (21:19)
[2017-08-25] MEDS: INSULIN DETEMIR 100 UNITS/ML VIAL SQ SCH (21:20)
[2017-08-25 21:58] LABS: RHEUMATOID FACTOR SCREEN NEGATIVE (NEGATIVE)
[2017-08-26] VITALS (14 sets, daily range): BP systolic 112–161; BP diastolic 47–97; PULSE 61–104; RESP 16–21; TEMP 97.5–99.4; O2SAT 95–98
--- NOTE | 2017-08-26 07:16 | MB ---
cc: JANICE ROMERO M.D. DATE OF CONSULTATION 08/25/2017 REASON FOR CONSULTATION Consult requested by Dr. Walton for evaluation of microcytic hypochromic anemia. HISTORY OF PRESENT ILLNESS Patricia is a pleasant 81-year-old female. She has a history of hypertension, oxygen-dependent COPD, diabetes mellitus and hypercholesterolemia. She came to the emergency room complaining of shortness of breath especially on exertion. The CBC revealed a hemoglobin 6.5. She has severe symptomatic anemia. She has been admitted to the hospital. She has received two units of blood transfusion and GI was consulted. The patient underwent upper endoscopy and colonoscopy which failed to reveal any significant findings in terms of malignancy or active bleeding. Her hemoglobin has improved to 8.2. Because of the anemia, I have been asked to see her for further evaluation. The patient stated that a year and half ago, she was admitted to the hospital for the anemia and received a blood transfusion. She had a GI workup which was negative. She has been followed up by her primary physician, Dr. Veliz. She does not recall whether her anemia had improved or not. She states that she is still feeling weak and tired. She has dyspnea on exertion. The rest of the review of systems is negative. PAST MEDICAL HISTORY 1. Diabetes mellitus 2. Hypertension 3. Oxygen-dependent COPD 4. Hypercholesterolemia 5. Coronary artery disease 6. Polymyalgia arthritis PAST SURGICAL HISTORY 1. Appendectomy 2. Cholecystectomy 3. Cardiac stent 4. Cataract surgery 5. Tonsillectomy 6. Cardiac catheterization ALLERGIES PENICILLIN, MEDICATIONS Prior to coming to the hospital: 1. Aspirin 2. Plavix 3. Atorvastatin 4. Norvasc 5. Metformin 6. Metoprolol 7. Ventolin 8. Spiriva 9. Levemir 10. Protonix 11. Lisinopril FAMILY HISTORY No history of anemia or malignancy reported. SOCIAL HISTORY Does not drink alcohol or smoke cigarettes anymore. PHYSICAL EXAM This is a well-developed, well-nourished white female in no apparent distress. VITAL SIGNS: Temperature 98.1, heart rate 72, blood pressure 149/58, O2 saturation 96%. HEENT: PERRLA, EOMI, anicteric. No oral lesions noted. NECK: No lymphadenopathy noted. LUNGS: Clear. Decreased breath sounds on both sides with scattered wheezing. HEART: Regular rate and rhythm. ABDOMEN: Soft and nontender. No hepatosplenomegaly. EXTREMITIES: No pedal edema. NEUROLOGIC: Awake, alert, and oriented times three. SKIN: No significant lesions are noted. He could she had tender much change. ASSESSMENT Severe microcytic hypochromic anemia most likely due to iron deficiency. The cause of the iron deficiency is unknown. Her GI workup has been negative during this admission. However, she would need a pill camera study. PLAN I have reviewed her available records and I have discussed with the patient regarding her severe microcytic, hypochromic anemia. Last week, Friday when she came to the emergency room, her hemoglobin was 6.5 and MCV was 71.9. She had received 2 units of blood transfusion, but no iron studies were ordered. No anemia workup has been ordered. I will order the iron studies, but it would not be accurate as she already had received two units of blood transfusion. I have also ordered the B12, RBC folate, reticulocyte count, serum protein electrophoresis, BREA and rheumatoid factor for the workup of the anemia. If iron deficiency is confirmed, then she would benefit from iron infusion. I reviewed the GI workup with her which failed to show any significant findings. A pill camera study has been recommended to be done as an outpatient. Thank you for asking my opinion. MD SARINA Garcia/BRENDA /8:11 PM /7:03 AM JOSH
[2017-08-26] MEDS: SODIUM CHLORIDE 0.9% FLUSH 10 ML FLUSH IV FLUSH SCH ×2 (07:23→20:03)
[2017-08-26] MEDS: RESP: ALBUTEROL 2.5 MG/IPRATROPIUM 0.5 MG NEB (SCH) NEB ×4 (07:48→23:36)
[2017-08-26 08:00] LABS: BASOPHIL % 0.1 % (0.0-2.0); HEMATOCRIT 25.2 % (35.0-46.0); HEMOGLOBIN 7.8 GM/DL (11.6-15.3); LYMPH % 6.7 % (9.0-44.0); LYMPHOCYTE # 0.8 TH/MM3 (1.0-4.8); MEAN CELL VOLUME 76.2 FL (80.0-100.0); MEAN CORPUSCULAR HEMOGLOBIN 23.5 PG (27.0-34.0); MEAN CORPUSCULAR HGB CONC 30.9 % (32.0-36.0); MEAN PLATELET VOLUME 8.1 FL (7.0-11.0); MONO % 7.4 % (0.0-8.0); MONOCYTE # 0.9 TH/MM3 (0-0.9); NEUT % 85.8 % (16.0-70.0); PLATELET COUNT 301 TH/MM3 (150-450); RED BLOOD COUNT 3.31 MIL/MM3 (4.00-5.30); RED CELL DISTRIBUTION WIDTH 20.3 % (11.6-17.2); WHITE BLOOD COUNT 11.7 TH/MM3 (4.0-11.0)
[2017-08-26 08:14] LABS: RETIC % 2.9 % (0.4-3.0)
[2017-08-26 08:20] LABS: % SATURATION IRON PROFILE 35.8 % (20-50); ALBUMIN 3.1 GM/DL (3.4-5.0); ALT (GPT) 16 U/L (10-53); AST (GOT) 7 U/L (15-37); BICARBONATE 25.9 MEQ/L (21.0-32.0); BLOOD UREA NITROGEN 23 MG/DL (7-18); CALCIUM 8.8 MG/DL (8.5-10.1); CHLORIDE 107 MEQ/L (98-107); CREATININE 0.79 MG/DL (0.50-1.00); GLOMERULAR FILTRATION RATE 70 ML/MIN (>89); GLUCOSE,RANDOM 196 MG/DL (74-106); IRON (FE) 148 MCG/DL (50-170); MAGNESIUM 1.6 MG/DL (1.5-2.5); PHOSPHORUS 3.4 MG/DL (2.5-4.9); SODIUM (NA) 142 MEQ/L (136-145); TOTAL IRON BINDING CAPACITY 413 MCG/DL (250-450)
[2017-08-26] MEDS: ASPIRIN 81 MG CHEW TAB CHEW SCH (08:23)
[2017-08-26] MEDS: guaiFENesin E.R. 600 MG TAB PO SCH ×2 (08:23→21:15)
[2017-08-26] MEDS: METOPROLOL TARTRATE 25 MG TAB PO SCH ×4 (08:23→21:15)
[2017-08-26] MEDS: predniSONE 20 MG TAB PO SCH ×2 (08:24→21:15)
[2017-08-26] MEDS: LISINOPRIL 20 MG TAB PO SCH ×2 (08:24→21:15)
[2017-08-26] MEDS: INSULIN ASPART SUPPLEMENTAL SCALE SQ SCH ×4 (08:24→21:00)
[2017-08-26] MEDS: DOCUSATE SODIUM 50 MG/SENNA 8.6 MG TAB PO SCH ×2 (08:24→21:00)
[2017-08-26] MEDS: PANTOPRAZOLE SOD 40 MG DELAYED RELEASE TAB PO SCH ×2 (08:24→21:15)
[2017-08-26] MEDS: TIOTROPIUM BROMIDE 18 MCG INH INH SCH (08:25)
[2017-08-26] MEDS: BUDESONIDE-FORMOTEROL 160/4.5 MCG INHALER INH SCH ×2 (08:25→21:17)
[2017-08-26 08:44] LABS: ALKALINE PHOSPHATASE 63 U/L (45-117); FERRITIN 40 NG/ML (8-252); TOTAL BILIRUBIN ADULT 0.4 MG/DL (0.2-1.0); TOTAL PROTEIN 5.9 GM/DL (6.4-8.2)
[2017-08-26] MEDS ORDERED: SODIUM CHLOR 0.9% 250 ML INJ 250 ML IV ONE (09:30)
[2017-08-26] MEDS ORDERED: IRON SUCROSE 100 MG/5 ML VIAL IV PUSH ONE (09:30)
--- NOTE | 2017-08-26 11:20 | HHI.GIFU ---
Subjective Remarks Pt sitting on edge of bed, getting blood drawn. No bleeding. No complaints. (Grace Dejesus) Objective Vitals I&O Vital Signs Date Time Temp Pulse Resp B/P (MAP) Pulse Ox O2 Delivery O2 Flow Rate FiO2 08/26/17 08:05 99.4 79 16 124/97 (106) 96 08/26/17 07:49 74 08/26/17 03:52 68 08/26/17 00:05 74 08/26/17 00:00 Nasal Cannula 4.00 08/26/17 00:00 97.5 72 20 112/60 (77) 97 08/25/17 20:29 93 08/25/17 20:00 97.7 75 20 121/57 (78) 96 08/25/17 20:00 Nasal Cannula 4.00 08/25/17 19:42 95 Nasal Cannula 3.00 08/25/17 16:05 98.1 72 19 149/58 (88) 96 08/25/17 16:00 81 08/25/17 12:05 97.9 96 19 133/78 (96) 95 08/25/17 11:20 97.7 72 18 147/80 (102) 97 Room Air I/O 08/25/17 08/25/17 08/25/17 08/26/17 08/26/17 08/26/17 07:00 15:00 23:00 07:00 15:00 23:00 Intake Total 200 ml 485 ml 480 ml Balance 200 ml 485 ml 480 ml Intake Oral 380 ml 480 ml IV Total 105 ml Other 200 ml # Voids 5 6 # Bowel Movements 1 2 Laboratory Laboratory Tests Test 08/26/17 06:00 White Blood Count 11.7 Red Blood Count 3.31 Hemoglobin 7.8 Hematocrit 25.2 Mean Corpuscular Volume 76.2 Mean Corpuscular Hemoglobin 23.5 Mean Corpuscular Hemoglobin Concent 30.9 Red Cell Distribution Width 20.3 Platelet Count 301 Mean Platelet Volume 8.1 Neutrophils (%) (Auto) 85.8 Lymphocytes (%) (Auto) 6.7 Monocytes (%) (Auto) 7.4 Eosinophils (%) (Auto) 0.0 Basophils (%) (Auto) 0.1 Neutrophils # (Auto) 10.0 Lymphocytes # (Auto) 0.8 Monocytes # (Auto) 0.9 Eosinophils # (Auto) 0.0 Basophils # (Auto) 0.0 CBC Comment DIFF FINAL Differential Comment Reticulocyte Count 2.9 Absolute Reticulocyte Count 95.0 Blood Urea Nitrogen 23 Creatinine 0.79 Random Glucose 196 Total Protein 5.9 Albumin 3.1 Calcium Level 8.8 Phosphorus Level 3.4 Magnesium Level 1.6 Alkaline Phosphatase 63 Aspartate Amino Transf (AST/SGOT) 7 Alanine Aminotransferase (ALT/SGPT) 16 Total Bilirubin 0.4 Sodium Level 142 Potassium Level 4.1 Chloride Level 107 Carbon Dioxide Level 25.9 Anion Gap 9 Estimat Glomerular Filtration Rate 70 Iron Level 148 Total Iron Binding Capacity 413 Percent Iron Saturation 35.8 Ferritin 40 Vitamin B12 Level 349 Imaging Last Impressions Chest X-Ray 08/22/17 0000 Signed Impressions: Service Date/Time: Tuesday, August 22, 2017 19:45 - CONCLUSION: 1. Basilar airspace disease, right greater than left with small effusion. Mal Main MD Physical Exam HEENT: PERRLA, normocephalic CHEST: CTA CARDIAC: RRR ABDOMEN:obse, Soft, nontender; no hepatosplenomegaly; bowel sounds are present in all four quadrants. EXTREMITIES: No clubbing, cyanosis, or edema. SKIN: Normal; no rash; no jaundice. TAX SENIOR ASSOCIATE: No focal deficits; alert and oriented times three. (Grace Dejesus [facility]) Assessment and Plan Plan Assessment/history Symptomatic anemia, patient has been on Plavix and aspirin before this admission , transfuse with 2 units hemoglobin now 8.4 no further shortness of breath or wheezing noted History of constipation uses stool softeners and meds as needed at home Note rhythm is irregular patient is on telemetry may be in atrial fib controlled rate Patient seemed to think she had endoscopy and colonoscopy last year but according to the record it appears that it was December 2015. Showed gastritis and the antrum, multiple erosions, biopsy showed reactive gastropathy. Colonoscopy showed inflammatory: Polyp Will plan for EGD and colonoscopy in a.m.. Current GI symptoms are stable 08/25/2017 patient is doing well, no sign of active bleeding, had upper endoscopy and colonoscopy found poss gastritis, small hemrorhoids, rectal polypsx2, no active bleeding 08/26/17 - no bleeding. mld drop hgb today. pt with no complaints, hematology now following PLAN: - Avoid NSAIDs - Follow-up biopsy - STEFANIE - Capsule endoscopy as an outpatient - Monitor H&H - transfuse as needed - f/u with hematology - f/u with GI 1-2 weeks after d/c pt seen by myself and Dr Barreto and this note is written on his behalf (Grace Dejesus) Plan patient was seen and examined agree with above note, FU as outpatient for capsule endoscopy, we will FU as needed. (Cl Barreto MD) Grace Dejesus Aug 26, 2017 11:20 Cl Barreto MD Aug 26, 2017 11:52
--- NOTE | 2017-08-26 12:04 | PD.ONC.PN ---
Subjective Subjective Remarks Afebrile overnight. Patient resting in room eating lunch. She tolerated iron infusion last night without difficulty. reports she will resume taking iron pills when she goes home, but they have caused her constipation in the past. Objective Data Date Time Temp Pulse Resp B/P (MAP) Pulse Ox O2 Delivery O2 Flow Rate FiO2 08/26/17 08:05 99.4 79 16 124/97 (106) 96 08/26/17 07:49 74 08/26/17 03:52 68 08/26/17 00:05 74 08/26/17 00:00 Nasal Cannula 4.00 08/26/17 00:00 97.5 72 20 112/60 (77) 97 08/25/17 20:29 93 08/25/17 20:00 97.7 75 20 121/57 (78) 96 08/25/17 20:00 Nasal Cannula 4.00 08/25/17 19:42 95 Nasal Cannula 3.00 08/25/17 16:05 98.1 72 19 149/58 (88) 96 08/25/17 16:00 81 08/25/17 12:05 97.9 96 19 133/78 (96) 95 08/26/17 08/26/17 08/26/17 07:00 15:00 23:00 Intake Total 480 ml Balance 480 ml Result Diagram: 08/26/17 0600 08/26/17 0600 Laboratory Results Laboratory Tests Test 08/26/17 06:00 08/26/17 10:55 White Blood Count 11.7 TH/MM3 Red Blood Count 3.31 MIL/MM3 Hemoglobin 7.8 GM/DL Hematocrit 25.2 % Mean Corpuscular Volume 76.2 FL Mean Corpuscular Hemoglobin 23.5 PG Mean Corpuscular Hemoglobin Concent 30.9 % Red Cell Distribution Width 20.3 % Platelet Count 301 TH/MM3 Mean Platelet Volume 8.1 FL Neutrophils (%) (Auto) 85.8 % Lymphocytes (%) (Auto) 6.7 % Monocytes (%) (Auto) 7.4 % Eosinophils (%) (Auto) 0.0 % Basophils (%) (Auto) 0.1 % Neutrophils # (Auto) 10.0 TH/MM3 Lymphocytes # (Auto) 0.8 TH/MM3 Monocytes # (Auto) 0.9 TH/MM3 Eosinophils # (Auto) 0.0 TH/MM3 Basophils # (Auto) 0.0 TH/MM3 CBC Comment DIFF FINAL Differential Comment Reticulocyte Count 2.9 % Absolute Reticulocyte Count 95.0 MIL/L Blood Urea Nitrogen 23 MG/DL Creatinine 0.79 MG/DL Random Glucose 196 MG/DL Total Protein 5.9 GM/DL Albumin 3.1 GM/DL Calcium Level 8.8 MG/DL Phosphorus Level 3.4 MG/DL Magnesium Level 1.6 MG/DL Alkaline Phosphatase 63 U/L Aspartate Amino Transf (AST/SGOT) 7 U/L Alanine Aminotransferase (ALT/SGPT) 16 U/L Total Bilirubin 0.4 MG/DL Sodium Level 142 MEQ/L Potassium Level 4.1 MEQ/L Chloride Level 107 MEQ/L Carbon Dioxide Level 25.9 MEQ/L Anion Gap 9 MEQ/L Estimat Glomerular Filtration Rate 70 ML/MIN Iron Level 148 MCG/DL Total Iron Binding Capacity 413 MCG/DL Percent Iron Saturation 35.8 % Ferritin 40 NG/ML Vitamin B12 Level 349 PG/ML Administered Medications Medications (Trade) Dose Ordered Sig/Sushil Route PRN Reason Start Time Stop Time Status Last Admin Dose Admin Insulin Aspart (NovoLOG SUPPLEMENTAL SCALE) 1 ACHS SLIDING SCALE SQ 08/23/17 08:00 08/26/17 08:24 Sodium Chloride (NS Flush) 2 ml BID IV FLUSH 08/23/17 09:00 08/26/17 07:23 Senna/Docusate Sodium (Janice-Colace) 1 tab BID PO 08/23/17 09:00 08/26/17 08:24 Budesonide/ Formoterol Fumarate (Symbicort 160-4.5 Mcg Inh) 2 puff Q12HR INH 08/23/17 09:00 08/26/17 08:25 Levofloxacin/ Dextrose 150 ml @ 100 mls/hr Q24H IV 08/23/17 20:00 08/25/17 21:18 Albuterol/ Ipratropium (Duoneb Neb) 1 ampule Q4HR WHILE AWAKE NEB NEB 08/23/17 08:00 08/25/17 19:42 Amlodipine Besylate (Norvasc) 10 mg DAILY PO 08/23/17 09:00 08/26/17 08:23 Aspirin (Aspirin Chew) 81 mg DAILY CHEW 08/23/17 09:00 Future Hold 08/26/17 08:23 Atorvastatin Calcium (Lipitor) 40 mg HS PO 08/23/17 21:00 08/25/17 21:19 Lisinopril (Prinivil) 20 mg BID PO 08/23/17 09:00 08/26/17 08:24 Metoprolol Tartrate (Lopressor) 25 mg QID PO 08/23/17 09:00 08/26/17 08:23 Pantoprazole Sodium (Protonix) 40 mg Q12HR PO 08/23/17 09:00 08/26/17 08:24 Tiotropium Sperry (Spiriva Inh) 18 mcg DAILY INH 08/23/17 09:00 08/26/17 08:25 Insulin Detemir (Levemir Inj) 15 units HS SQ 08/22/17 22:22 08/25/17 21:20 Guaifenesin (Mucinex Er) 600 mg BID PO 08/23/17 15:00 08/26/17 08:23 Gabapentin (Neurontin) 100 mg HS PO 08/24/17 21:00 08/25/17 21:19 Prednisone (Deltasone) 20 mg BID PO 08/25/17 21:00 08/26/17 08:24 Objective Remarks GENERAL:Pleasant elderly female, sitting up in chair next to bed, eating lunch. SKIN: Warm and dry. HEAD: Normocephalic. EYES: No injection or drainage. NECK: Supple, trachea midline CARDIOVASCULAR: Regular rate and rhythm RESPIRATORY: diminished at bases, anterior noble clear. On O2 via NC GASTROINTESTINAL: Abdomen soft, non-tender, nondistended. EXTREMITIES: No cyanosis MUSCULOSKELETAL: Adequate muscle tone. NEUROLOGICAL: No obvious focal deficit. Awake, alert, and oriented x3. Assessment/Plan Problem List: (1) Microcytic hypochromic anemia ICD Codes: D50.9 - Iron deficiency anemia, unspecified Plan: 08/26: patient's anemia studies indicate iron deficiency, pRBC have already been ordered, will hold off on ordering additional iron for now as the patient will receive iron in her blood transfusion. --Severe microcytic hyperchromic anemia most likely due to iron deficiency. --GI workup has been negative during this admission. --iron studies are consistent with iron deficiency anemia, low iron, low percent sat, normal TIBC --B12 WNL --retic count WNL --serum protein electrophoresis pending --RF negative Assessment 81y/o female with microcytic hyperchromic anemia. history of hypertension, oxygen-dependent COPD, diabetes mellitus, hypercholesterolemia. Coronary artery disease, Polymyalgia arthritis upper endoscopy and colonoscopy failed to reveal any significant findings in terms of malignancy or active bleeding. Attending Statement The exam, history, and the medical decision-making described in the above note were completed with the assistance of the mid-level provider. I reviewed and agree with the findings presented. I attest that I had a [id number] encounter with the patient on the same day, and personally performed and documented my assessment and findings in the medical record. no new c/o labs c/w FLORIDALMA, source unknown. Now on iron infusion. Mady Kuhn Aug 26, 2017 12:04 Jess Beckwith MD Aug 26, 2017 23:01
[2017-08-26] MEDS ORDERED: IRON SUCROSE INJ 100 MG in SODIUM CHLORIDE 0.9% INJ 100 ML IV ONE (12:15)
--- NOTE | 2017-08-26 21:03 | HHI.PR ---
Subjective Remarks This is a 81-year-old female with a PMH of HTN, Hyperlipidemia, Anemia, COPD, O2 Dependent and DM who presented to the ER with complaints of SOB and wheezing x2 days. Has been using Nebulizer and MDI at home w/ no significant improvement. Reports significantly increased work of breathing, worse w/ exertion/ambulation. Denies fever, chills, cough or sick contacts. On arrival , pt w/ significant respiratory distress and work of breathing. BP 105/74, HR 107, O2 sat 90% on 2L NC. Hemoglobin 6.5, previously 10.3 on 03/08/17. Reports h/o anemia w/ transfusion approx 1yr ago. Chemistry essentially unremarkable. Troponin negative. BNP 239. CXR w/ basilar airspace disease. While in ER, pt w/ episode of A-fib w/ RVR after receiving treatment, s/p Lopressor w/ resolution, now back to NSR. S/p Levaquin and DuoNeb in ER as well. Pending 2u pRBC transfusion. 08-23 states she is breathing a little better now that she has received the blood transfusion States she is chronically on oxygen at home Has been feeling much weaker lately prior to getting the blood transfusion and was having worsening shortness of breath Will consult gastroenterology and sent stool for Hemoccult A.m. labs 08-24 BREATHING BETTER WANTS A BETTER DIET TO HAVE EGD/?COLONOSCOPY TOMORROW WITH GI 08/25. Patient says she is feeling all right. Status post EGD/colonoscopy. denies any bleeding. Patient reports chronic history of iron deficiency anemia , however quit taking her iron supplement 2 months ago due to constipation. 08/26.Patient says she is feeling all right. Continues with fatigue, however feels like improving. Denies any bleeding. Objective Vital Signs Date Time Temp Pulse Resp B/P (MAP) Pulse Ox O2 Delivery O2 Flow Rate FiO2 08/26/17 18:02 98.2 75 17 161/70 98 08/26/17 16:05 98.2 75 16 161/70 (100) 96 08/26/17 15:46 68 08/26/17 14:37 98.2 62 17 126/47 98 08/26/17 14:21 98.0 61 17 122/54 97 08/26/17 12:05 99.0 104 16 116/75 (89) 96 08/26/17 11:59 97 Nasal Cannula 3.00 08/26/17 08:05 99.4 79 16 124/97 (106) 96 08/26/17 07:49 74 08/26/17 03:52 68 08/26/17 00:05 74 08/26/17 00:00 Nasal Cannula 4.00 08/26/17 00:00 97.5 72 20 112/60 (77) 97 I/O 08/25/17 08/25/17 08/25/17 08/26/17 08/26/17 08/26/17 07:00 15:00 23:00 07:00 15:00 23:00 Intake Total 200 ml 485 ml 480 ml 1180 ml Balance 200 ml 485 ml 480 ml 1180 ml Intake Oral 380 ml 480 ml 520 ml IV Total 105 ml 250 ml Packed Cells 400 ml Blood Product IV Normal Saline Flush 10 ml Other 200 ml # Voids 5 6 6 # Bowel Movements 1 2 2 Result Diagram: 08/26/17 0600 08/26/17 0600 Objective Remarks GENERAL: Patient sitting up in bed. Appears comfortable.alert and oriented 3. SKIN: Warm and dry. HEAD: Normocephalic. EYES: No scleral icterus. No injection or drainage. NECK: Supple, trachea midline. No JVD. CARDIOVASCULAR: Regular rate and rhythm without murmurs, gallops, or rubs. RESPIRATORY: Breath sounds equal bilaterally. No accessory muscle use. GASTROINTESTINAL: Abdomen soft, non-tender, nondistended. MUSCULOSKELETAL: No cyanosis, or edema. BACK: Nontender without obvious deformity. No CVA tenderness. A/P Assessment and Plan // COPD: Chronic Respiratory Failure w/ Acute Exacerbation. Severe. Significant respiratory distress w/ increased work of breathing, persistent, + dyspnea w/ speech. O2 Dependent, monitor O2 closely. Solu-Medrol, Symbicort, DuoNeb-substitute for Xopenex in light of episode of arrhythmia. CXR w/ basilar airspace disease, images reviewed by , s/p Ana, continue w/ IV Abx for empiric treatment of PNA. Add Mucinex and incentive spirometry = Taper steroids. Continue to monitor. //Arrhythmia: episode of what appeared to be A-fib w/ RVR while in ER, now back to NSR. Admit to [facility], place on telemetry, check Echo to eval for valvular abnormality/cardiomyopathy. Blood pressure acceptable, heart rate controlled. Continue home Metoprolol. //Iron deficiency Anemia: -Critical Anemia, likely contributing to significant respiratory distress. No active bleeding. Hgb 6.5, previously 10.3 on 03/08/17. Transfuse 2u pRBC, repeat Hgb/Hct following transfusion. = Hemoglobin 8.2. EGD/colonoscopy with some hemorrhoids, polyps with biopsies pending. No indication of bleeding. Hematology consult ordered as per GI recommendations. = 08/26. Hemoglobin down to 7.8 today. Have ordered 1 unit of PRBCs. Have ordered iron sucrose infusion as well. Hematology following. Appreciate assistance. // DM: Sliding scale w/ Accu-Cheks. Resume home Insulin, hold Metformin = Blood sugars elevated in the mid 200s. Expect to improve with further tapering steroids. // DVT Prophylaxis: SCD/Teds. Discharge Planning If hemoglobin stable tomorrow, likely can dischargehome with home health. PT following. Appreciate assistance. Recommends home with home health. Ck Walton MD Aug 26, 2017 21:03
[2017-08-26] MEDS: LEVOFLOXACIN 750 MG PREMIX INJ 150 ML IV SCH (21:14)
[2017-08-26] MEDS: ATORVASTATIN 40 MG TAB PO SCH (21:16)
[2017-08-26] MEDS: GABAPENTIN 100 MG CAP PO SCH (21:16)
[2017-08-26] MEDS: INSULIN DETEMIR 100 UNITS/ML VIAL SQ SCH (21:28)
[2017-08-26 22:13] LABS: ALB/GLOB RATIO (SPE) 1.43 (1.39-2.23)
[2017-08-27] VITALS (8 sets, daily range): BP systolic 132–159; BP diastolic 72–85; PULSE 55–93; RESP 17–20; TEMP 97.2–98.8; O2SAT 96–98
[2017-08-27] MEDS: RESP: ALBUTEROL 2.5 MG/IPRATROPIUM 0.5 MG NEB (SCH) NEB (07:36)
[2017-08-27] MEDS: LISINOPRIL 20 MG TAB PO SCH (08:26)
[2017-08-27] MEDS: DOCUSATE SODIUM 50 MG/SENNA 8.6 MG TAB PO SCH (08:26)
[2017-08-27] MEDS: predniSONE 20 MG TAB PO SCH (08:26)
[2017-08-27] MEDS: METOPROLOL TARTRATE 25 MG TAB PO SCH ×2 (08:26→12:34)
[2017-08-27] MEDS: guaiFENesin E.R. 600 MG TAB PO SCH (08:26)
[2017-08-27] MEDS: INSULIN ASPART SUPPLEMENTAL SCALE SQ SCH ×2 (08:27→12:52)
[2017-08-27] MEDS: PANTOPRAZOLE SOD 40 MG DELAYED RELEASE TAB PO SCH (08:27)
[2017-08-27] MEDS: SODIUM CHLORIDE 0.9% FLUSH 10 ML FLUSH IV FLUSH SCH (08:27)
[2017-08-27] MEDS: TIOTROPIUM BROMIDE 18 MCG INH INH SCH (08:28)
[2017-08-27] MEDS: BUDESONIDE-FORMOTEROL 160/4.5 MCG INHALER INH SCH (08:28)
[2017-08-27 08:39] LABS: AUTOMATED NEUTROPHIL # 9.8 TH/MM3 (1.8-7.7); BASOPHIL % 0.1 % (0.0-2.0); EOSINOPHIL % 0.1 % (0.0-4.0); HEMATOCRIT 30.4 % (35.0-46.0); HEMOGLOBIN 9.5 GM/DL (11.6-15.3); LYMPH % 10.5 % (9.0-44.0); LYMPHOCYTE # 1.3 TH/MM3 (1.0-4.8); MEAN CORPUSCULAR HEMOGLOBIN 24.4 PG (27.0-34.0); MEAN CORPUSCULAR HGB CONC 31.4 % (32.0-36.0); MEAN PLATELET VOLUME 7.7 FL (7.0-11.0); MONO % 7.1 % (0.0-8.0); MONOCYTE # 0.8 TH/MM3 (0-0.9); NEUT % 82.2 % (16.0-70.0); PLATELET COUNT 306 TH/MM3 (150-450)
--- NOTE | 2017-08-27 08:42 | PD.ONC.PN ---
Subjective Subjective Remarks feels better wants to go home Objective Data Date Time Temp Pulse Resp B/P (MAP) Pulse Ox O2 Delivery O2 Flow Rate FiO2 08/27/17 08:05 97.2 75 18 158/85 (109) 98 08/27/17 07:37 Nasal Cannula 3.00 08/27/17 04:00 87 08/27/17 00:11 73 08/27/17 00:00 60 08/27/17 00:00 97.8 78 20 132/72 (92) 96 08/26/17 21:05 95 Nasal Cannula 3.00 08/26/17 20:00 97.5 87 21 153/70 (97) 95 08/26/17 19:40 98 Nasal Cannula 3.00 08/26/17 18:02 98.2 75 17 161/70 98 08/26/17 16:05 98.2 75 16 161/70 (100) 96 08/26/17 15:46 68 08/26/17 14:37 98.2 62 17 126/47 98 08/26/17 14:21 98.0 61 17 122/54 97 08/26/17 12:05 99.0 104 16 116/75 (89) 96 08/26/17 11:59 97 Nasal Cannula 3.00 08/27/17 08/27/17 08/27/17 07:00 15:00 23:00 Intake Total 460 ml Output Total 800 ml Balance -340 ml Result Diagram: 08/27/17 0755 08/26/17 0600 Laboratory Results Laboratory Tests Test 08/26/17 10:55 08/27/17 07:55 White Blood Count 12.0 TH/MM3 Red Blood Count 3.90 MIL/MM3 Hemoglobin 9.5 GM/DL Hematocrit 30.4 % Mean Corpuscular Volume 78.0 FL Mean Corpuscular Hemoglobin 24.4 PG Mean Corpuscular Hemoglobin Concent 31.4 % Red Cell Distribution Width 21.0 % Platelet Count 306 TH/MM3 Mean Platelet Volume 7.7 FL Neutrophils (%) (Auto) 82.2 % Lymphocytes (%) (Auto) 10.5 % Monocytes (%) (Auto) 7.1 % Eosinophils (%) (Auto) 0.1 % Basophils (%) (Auto) 0.1 % Neutrophils # (Auto) 9.8 TH/MM3 Lymphocytes # (Auto) 1.3 TH/MM3 Monocytes # (Auto) 0.8 TH/MM3 Eosinophils # (Auto) 0.0 TH/MM3 Basophils # (Auto) 0.0 TH/MM3 CBC Comment DIFF FINAL Differential Comment Administered Medications Medications (Trade) Dose Ordered Sig/Sushil Route PRN Reason Start Time Stop Time Status Last Admin Dose Admin Insulin Aspart (NovoLOG SUPPLEMENTAL SCALE) 1 ACHS SLIDING SCALE SQ 08/23/17 08:00 08/27/17 08:27 Sodium Chloride (NS Flush) 2 ml BID IV FLUSH 08/23/17 09:00 08/27/17 08:27 Senna/Docusate Sodium (Janice-Colace) 1 tab BID PO 08/23/17 09:00 08/27/17 08:26 Budesonide/ Formoterol Fumarate (Symbicort 160-4.5 Mcg Inh) 2 puff Q12HR INH 08/23/17 09:00 08/27/17 08:28 Levofloxacin/ Dextrose 150 ml @ 100 mls/hr Q24H IV 08/23/17 20:00 08/26/17 21:14 Amlodipine Besylate (Norvasc) 10 mg DAILY PO 08/23/17 09:00 08/27/17 08:26 Aspirin (Aspirin Chew) 81 mg DAILY CHEW 08/23/17 09:00 Future Hold 08/26/17 08:23 Atorvastatin Calcium (Lipitor) 40 mg HS PO 08/23/17 21:00 08/26/17 21:16 Lisinopril (Prinivil) 20 mg BID PO 08/23/17 09:00 08/27/17 08:26 Metoprolol Tartrate (Lopressor) 25 mg QID PO 08/23/17 09:00 08/27/17 08:26 Pantoprazole Sodium (Protonix) 40 mg Q12HR PO 08/23/17 09:00 08/27/17 08:27 Tiotropium Nellis (Spiriva Inh) 18 mcg DAILY INH 08/23/17 09:00 08/27/17 08:28 Insulin Detemir (Levemir Inj) 15 units HS SQ 08/22/17 22:22 08/26/17 21:28 Guaifenesin (Mucinex Er) 600 mg BID PO 08/23/17 15:00 08/27/17 08:26 Gabapentin (Neurontin) 100 mg HS PO 08/24/17 21:00 08/26/17 21:16 Prednisone (Deltasone) 20 mg BID PO 08/25/17 21:00 08/27/17 08:26 Objective Remarks GENERAL: Well-nourished, well-developed patient. SKIN: Warm and dry. HEAD: Normocephalic. EYES: No scleral icterus. No injection or drainage. NECK: Supple, trachea midline. No JVD or lymphadenopathy. LYMPHATIC: No adenopathy. CARDIOVASCULAR: Regular rate and rhythm without murmurs. RESPIRATORY: Breath sounds equal bilaterally. No accessory muscle use. GASTROINTESTINAL: Abdomen soft, non-tender, nondistended. EXTREMITIES: No cyanosis, or edema. MUSCULOSKELETAL: Adequate muscle tone. NEUROLOGICAL: No obvious focal deficit. Awake, alert, and oriented x3. PSYCHIATRIC: Appropriate mood and affect; insight and judgment normal. Assessment/Plan Problem List: (1) Microcytic hypochromic anemia ICD Codes: D50.9 - Iron deficiency anemia, unspecified Plan: 08/27 HG improved to 9.5 after Iron infusion and PRBC Ok to d/c available prn. 08/26: patient's anemia studies indicate iron deficiency, pRBC have already been ordered --Severe microcytic hyperchromic anemia most likely due to iron deficiency. --GI workup has been negative during this admission. --iron studies are consistent with iron deficiency anemia, low iron, low percent sat, normal TIBC --B12 WNL --retic count WNL --serum protein electrophoresis = No M spike --RF negative Assessment 81y/o female with microcytic hyperchromic anemia. history of hypertension, oxygen-dependent COPD, diabetes mellitus, hypercholesterolemia. Coronary artery disease, Polymyalgia arthritis upper endoscopy and colonoscopy failed to reveal any significant findings in terms of malignancy or active bleeding. Jess Beckwith MD Aug 27, 2017 08:42
--- NOTE | 2017-08-27 08:51 | HHI.FF ---
Face to Face Verification Diagnosis: (1) Generalized weakness (2) DM (diabetes mellitus) (3) History of coronary artery disease (4) Microcytic hypochromic anemia Physical Therapy Order: Evaluate and Treat Home Health Nursing Order: Nursing assessment with vital signs [facility] Order: To Evaluate: Support services Order: To Provide: Long range planning I have seen patient Patricia Hughes on 08/27/17. My clinical findings support the need for the requested home health care services because: Limited ability to care for self I certify that my clinical findings support that this patient is homebound because: Unsafe to leave home unassisted Ck Walton MD Aug 27, 2017 08:51
[2017-08-27] MEDS ORDERED: PRED10 PO (09:06)
[2017-08-27] MEDS ORDERED: MIRA3350 PO (09:06)
[2017-08-27] MEDS ORDERED: LEVO500T8 PO (09:06)
[2017-08-27] MEDS ORDERED: FERR325T18 PO (09:06)
[2017-08-27] MEDS ORDERED: CLOPIDOGREL 75 MG TAB PO ONE (10:30)
[2017-08-27] MEDS ORDERED: ASPIRIN EC 81 MG TABEC PO ONE (10:30)
[2017-08-27] MEDS ORDERED: OXYGENDME NAS.CANULA (10:53)
--- NOTE | 2017-08-27 10:56 | HHI.PR ---
Subjective Remarks Patient says she is feeling well. Breathing well. Denies any chest pain. Denies any bleeding. Feels like going home. Objective Vital Signs Date Time Temp Pulse Resp B/P (MAP) Pulse Ox O2 Delivery O2 Flow Rate FiO2 08/27/17 08:05 97.2 75 18 158/85 (109) 98 08/27/17 08:00 77 08/27/17 07:37 Nasal Cannula 3.00 08/27/17 04:00 87 08/27/17 00:11 73 08/27/17 00:00 60 08/27/17 00:00 97.8 78 20 132/72 (92) 96 08/26/17 21:05 95 Nasal Cannula 3.00 08/26/17 20:00 97.5 87 21 153/70 (97) 95 08/26/17 19:40 98 Nasal Cannula 3.00 08/26/17 18:02 98.2 75 17 161/70 98 08/26/17 16:05 98.2 75 16 161/70 (100) 96 08/26/17 15:46 68 08/26/17 14:37 98.2 62 17 126/47 98 08/26/17 14:21 98.0 61 17 122/54 97 08/26/17 12:05 99.0 104 16 116/75 (89) 96 08/26/17 11:59 97 Nasal Cannula 3.00 I/O 08/26/17 08/26/17 08/26/17 08/27/17 08/27/17 08/27/17 07:00 15:00 23:00 07:00 15:00 23:00 Intake Total 480 ml 1180 ml 460 ml Output Total 800 ml Balance 480 ml 1180 ml -340 ml Intake Oral 480 ml 520 ml 460 ml IV Total 250 ml Packed Cells 400 ml Blood Product IV Normal Saline Flush 10 ml Output Urine Total 800 ml # Voids 6 6 # Bowel Movements 2 2 0 Result Diagram: 08/27/17 0755 08/26/17 0600 Objective Remarks GENERAL: Patient sitting up in bed. Appears comfortable.alert and oriented 3. Observe patient walking around in [place]. Appears to be walking using walker with minimal difficulty. SKIN: Warm and dry. HEAD: Normocephalic. EYES: No scleral icterus. No injection or drainage. NECK: Supple, trachea midline. No JVD. CARDIOVASCULAR: Regular rate and rhythm without murmurs, gallops, or rubs. RESPIRATORY: Breath sounds equal bilaterally. No accessory muscle use. GASTROINTESTINAL: Abdomen soft, non-tender, nondistended. MUSCULOSKELETAL: No cyanosis, or edema. BACK: Nontender without obvious deformity. No CVA tenderness. A/P Assessment and Plan // COPD: Chronic Respiratory Failure w/ Acute Exacerbation. Severe. Significant respiratory distress w/ increased work of breathing, persistent, + dyspnea w/ speech. O2 Dependent, monitor O2 closely. Solu-Medrol, Symbicort, DuoNeb-substitute for Xopenex in light of episode of arrhythmia. CXR w/ basilar airspace disease, images reviewed by me, s/p Ana, continue w/ IV Abx for empiric treatment of PNA. Add Mucinex and incentive spirometry = Discharge home on steroid taper. Patient will need oxygen at home. //Arrhythmia: episode of what appeared to be A-fib w/ RVR while in ER, now back to NSR. Admit to [facility], place on telemetry, check Echo to eval for valvular abnormality/cardiomyopathy. EF 50-55%. Severe thickening of mitral valve leaflets. Blood pressure acceptable, heart rate controlled. Continue home Metoprolol. I'll with cardiology as outpatient. //Iron deficiency Anemia: -Critical Anemia, likely contributing to significant respiratory distress. No active bleeding. Hgb 6.5, previously 10.3 on 03/08/17. Transfuse 2u pRBC, repeat Hgb/Hct following transfusion. = Hemoglobin 8.2. EGD/colonoscopy with some hemorrhoids, polyps with biopsies pending. No indication of bleeding. Hematology consult ordered as per GI recommendations. = 08/26. Hemoglobin down to 7.8 today. Have ordered 1 unit of PRBCs. Have ordered iron sucrose infusion as well. Hematology following. Appreciate assistance. = 08/27. Hemoglobin 9.5 today. Improved. Discharge home on iron, MiraLAX for constipation. Follow-up with hematology, gastroenterology for further GI workup. Follow-up with cardiology as patient had drug-eluting stent placed in February 2017. I have continued her on aspirin and Plavix as she will need to complete antiplatelet therapy for at least 6 months after stent placement. // DM: Sliding scale w/ Accu-Cheks. Resume home Insulin, hold Metformin = Blood sugars elevated in the mid 200s. Expect to improve with further tapering steroids. // DVT Prophylaxis: SCD/Teds. Discharge Planning Discharge home with follow-up GI, hematology, cardiology, primary care. Ck Walton MD Aug 27, 2017 10:56
--- NOTE | 2017-08-27 11:05 | HHI.DS ---
Discharge Summary Admission Date Aug 22, 2017 at 21:43 Discharge Date: Aug 27, 2017 Admitting Diagnosis arrhythmia (1) COPD (chronic obstructive pulmonary disease) ICD Code: J44.9 - Chronic obstructive pulmonary disease, unspecified (2) Anemia ICD Code: D64.9 - Anemia, unspecified Status: Acute (3) Arrhythmia ICD Code: I49.9 - Cardiac arrhythmia, unspecified (4) DM (diabetes mellitus) ICD Code: E11.9 - Type 2 diabetes mellitus without complications Procedures EGD, colonoscopy. Brief History - From Admission This is a 81-year-old female with a PMH of HTN, Hyperlipidemia, Anemia, COPD, O2 Dependent and DM who presented to the ER with complaints of SOB and wheezing x2 days. Has been using Nebulizer and MDI at home w/ no significant improvement. Reports significantly increased work of breathing, worse w/ exertion/ambulation. Denies fever, chills, cough or sick contacts. On arrival , pt w/ significant respiratory distress and work of breathing. BP 105/74, HR 107, O2 sat 90% on 2L NC. Hemoglobin 6.5, previously 10.3 on 03/08/17. Reports h/o anemia w/ transfusion approx 1yr ago. Chemistry essentially unremarkable. Troponin negative. BNP 239. CXR w/ basilar airspace disease. While in ER, pt w/ episode of A-fib w/ RVR after receiving treatment, s/p Lopressor w/ resolution, now back to NSR. S/p Levaquin and DuoNeb in ER as well. Pending 2u pRBC transfusion. CBC/BMP: 08/27/17 0755 08/26/17 0600 Significant Findings Laboratory Tests Test 08/25/17 08:35 08/26/17 06:00 08/26/17 10:55 08/27/17 07:55 Iron Level 35 MCG/DL (50-170) Percent Iron Saturation 8.1 % (20-50) White Blood Count 11.7 TH/MM3 (4.0-11.0) 12.0 TH/MM3 (4.0-11.0) Red Blood Count 3.31 MIL/MM3 (4.00-5.30) 3.90 MIL/MM3 (4.00-5.30) Hemoglobin 7.8 GM/DL (11.6-15.3) 9.5 GM/DL (11.6-15.3) Hematocrit 25.2 % (35.0-46.0) 30.4 % (35.0-46.0) Mean Corpuscular Volume 76.2 FL (80.0-100.0) 78.0 FL (80.0-100.0) Mean Corpuscular Hemoglobin 23.5 PG (27.0-34.0) 24.4 PG (27.0-34.0) Mean Corpuscular Hemoglobin Concent 30.9 % (32.0-36.0) 31.4 % (32.0-36.0) Red Cell Distribution Width 20.3 % (11.6-17.2) 21.0 % (11.6-17.2) Neutrophils (%) (Auto) 85.8 % (16.0-70.0) 82.2 % (16.0-70.0) Lymphocytes (%) (Auto) 6.7 % (9.0-44.0) Neutrophils # (Auto) 10.0 TH/MM3 (1.8-7.7) 9.8 TH/MM3 (1.8-7.7) Lymphocytes # (Auto) 0.8 TH/MM3 (1.0-4.8) Blood Urea Nitrogen 23 MG/DL (7-18) Random Glucose 196 MG/DL (74-106) Total Protein 5.9 GM/DL (6.4-8.2) Albumin 3.1 GM/DL (3.4-5.0) Aspartate Amino Transf (AST/SGOT) 7 U/L (15-37) Estimat Glomerular Filtration Rate 70 ML/MIN (>89) Imaging Last Impressions Chest X-Ray 08/22/17 0000 Signed Impressions: Service Date/Time: Tuesday, August 22, 2017 19:45 - CONCLUSION: 1. Basilar airspace disease, right greater than left with small effusion. Mal Main MD PE at Discharge GENERAL: Awake alert oriented talkative and cooperative SKIN: Warm and dry. HEAD: Atraumatic. Normocephalic. EYES: Pupils equal and round. No scleral icterus. No injection or drainage. Extractor muscles intact ENT: No nasal bleeding or discharge. Mucous membranes pink and moist. Tongue is midline NECK: Trachea midline. No JVD. Supple CARDIOVASCULAR: Regular rate and rhythm. S1 and S2 no S3 or S4 no heave or thrill or rub or gallop RESPIRATORY: No accessory muscle use. Clear to auscultation. Breath sounds equal bilaterally. Decreased breath sounds bilaterally GASTROINTESTINAL: Abdomen soft, non-tender, nondistended. Hepatic and splenic margins not palpable. Obese MUSCULOSKELETAL: Extremities without clubbing, cyanosis, or edema. No obvious deformities. NEUROLOGICAL: Awake and alert. No obvious cranial nerve deficits. Motor grossly within normal limits. 4 out of 5 muscle strength in the arms and legs. Normal speech. PSYCHIATRIC: Appropriate mood and affect; insight and judgment normal. Hospital Course patient presented with severe anemia, hemoglobin 6. This improved with 3 total units of PRBCs. Her anticoagulation with Plavix and aspirin was held during admission, however restarted at discharge. She underwent colonoscopy, EGD which did not show any source of active bleeding. She will need pill endoscopy as outpatient. Hematology was consulted as per GI recommendations, and labs are pending. Patient severe iron deficiency anemia likely due to her self discontinuation of iron supplements 2 months ago due to constipation. Iron supplements will be restarted with laxative regimen. Patient will follow-up with primary care, pathology, gastroenterology, cardiology. Aspirin and Plavix will be continued as patient had a drug-eluting stent placed 5 months ago he'll need to complete at least 6 months rent in stent thrombosis. For Problem-based summary for most recent progress note, please see below. // COPD: Chronic Respiratory Failure w/ Acute Exacerbation. Severe. Significant respiratory distress w/ increased work of breathing, persistent, + dyspnea w/ speech. O2 Dependent, monitor O2 closely. Solu-Medrol, Symbicort, DuoNeb-substitute for Xopenex in light of episode of arrhythmia. CXR w/ basilar airspace disease, images reviewed by me, s/p Ana, continue w/ IV Abx for empiric treatment of PNA. Add Mucinex and incentive spirometry = Discharge home on steroid taper. Patient will need oxygen at home. //Arrhythmia: episode of what appeared to be A-fib w/ RVR while in ER, now back to NSR. Admit to [facility], place on telemetry, check Echo to eval for valvular abnormality/cardiomyopathy. EF 50-55%. Severe thickening of mitral valve leaflets. Blood pressure acceptable, heart rate controlled. Continue home Metoprolol. I'll with cardiology as outpatient. //Iron deficiency Anemia: -Critical Anemia, likely contributing to significant respiratory distress. No active bleeding. Hgb 6.5, previously 10.3 on 03/08/17. Transfuse 2u pRBC, repeat Hgb/Hct following transfusion. = Hemoglobin 8.2. EGD/colonoscopy with some hemorrhoids, polyps with biopsies pending. No indication of bleeding. Hematology consult ordered as per GI recommendations. = 08/26. Hemoglobin down to 7.8 today. Have ordered 1 unit of PRBCs. Have ordered iron sucrose infusion as well. Hematology following. Appreciate assistance. = 08/27. Hemoglobin 9.5 today. Improved. Discharge home on iron, MiraLAX for constipation. Follow-up with hematology, gastroenterology for further GI workup. Follow-up with cardiology as patient had drug-eluting stent placed in February 2017. I have continued her on aspirin and Plavix as she will need to complete antiplatelet therapy for at least 6 months after stent placement. // DM: Sliding scale w/ Accu-Cheks. Resume home Insulin, hold Metformin = Blood sugars elevated in the mid 200s. Expect to improve with further tapering steroids. // DVT Prophylaxis: SCD/Teds. Pt Condition on Discharge: Good Discharge Disposition: Disch w/ Home Health Serv Discharge Time: > 30 minutes Discharge Instructions DIET: Follow Instructions for: Diabetic Diet Activities you can perform: Regular-No Restrictions Follow up Referrals: Cardiology - 1 Week with Jeri Keith MD Cardiology - 1 Week @ [facility] Gastroenterology - 2 Weeks with Cl Barreto MD Oncology/Hematology - 2 Weeks with Jess Beckwith MD PCP Follow-up - 1 Week with Juliet Veliz MD PCP Follow-up - 1 Week @ [facility] PCP Follow-up - 1 Week @ [facility] New Orders: CBC WITH DIFF - 3-5 Days New Medications: Ferrous Sulfate (Ferrous Sulfate) 325 Mg (65 Mg Iron) Tablet 325 MG PO TIDPC for Nutritional Supplement, #90 TAB 0 Refills Levofloxacin (Levofloxacin) 500 Mg Tablet 500 MG PO DAILY for Infection, #2 TAB 0 Refills Oxygen (O2) (Oxygen (O2)) Device LITER MARISABEL.CANULA CONTINUOUS for Prevent Hypoxemia, #2 Oxygen Concentrator Portable Gaseous 2 L/min via Nasal Canula Continuous For 99 months Polyethylene Glycol 3350 Powder (Miralax Powder) 17 Gm Powd 17 GM PO DAILY for Constipation, #1 CAN 0 Refills Mix and dissolve one measuring cap-ful (17 grams) in water or juice. Prednisone (Prednisone) 10 Mg Tab 10 MG PO DAILY for COPD, #9 TAB 0 Refills Take 20mg daily for 3 days; 10mg daily for 3 days, then stop. Continued Medications: Albuterol 18 GM Inh (Ventolin Hfa 18 GM Inh) 90 Mcg/Act Aer 2 PUFF INH Q6H PRN for SHORTNESS OF BREATH, #1 INHALER 0 Refills Amlodipine (Norvasc) 5 Mg Tab 10 MG PO DAILY for hypertension for 30 Days, TAB 0 Refills Aspirin (Aspirin) 81 Mg Chew 81 MG CHEW DAILY for cad for 30 Days, TAB 0 Refills Atorvastatin (Atorvastatin) 40 Mg Tab 40 MG PO HS for cad for 30 Days, TAB 0 Refills Clopidogrel (Plavix) 75 Mg Tab 75 MG PO DAILY for cad for 30 Days, TAB 0 Refills Gabapentin (Gabapentin) 100 Mg Cap 100 MG PO HS, #30 CAP 0 Refills Insulin Detemir Inj (Levemir Flextouch Pen Inj) 300 unit/3 ML Pen 15 UNITS SQ HS for Blood Sugar Management, PEN 0 Refills Lisinopril (Lisinopril) 20 Mg Tab 20 MG PO BID, #30 TAB 0 Refills Metformin (Metformin) 1,000 Mg Tab 1000 MG PO BID for Blood Sugar Management, #60 TAB 0 Refills With meals. resume on 03/09/17. Metoprolol Tartrate (Metoprolol Tartrate) 25 Mg Tab 25 MG PO QID for a-fib. for 30 Days, TAB 0 Refills Pantoprazole (Protonix) 40 Mg Tab 40 MG PO Q12HR for Reflux, #30 TAB 0 Refills Tiotropium Inh (Spiriva Handihaler) 18 Mcg Cap 18 MCG INH DAILY for COPD, #30 CAP 0 Refills 1 capsule = 18 mcg Ck Walton MD Aug 27, 2017 11:05
== END 2017-08-27 13:58 | disposition home health service (06) | DRG 190 ==
LOC: NEPE 18:44 → NEDA 21:43 → N04A 22:48
PROVIDERS: ADMIT Internal Medicine; ATTEND Internal Medicine
PROC: 30233N1 Transfusion of Nonautologous Red Blood Cells into Peripheral Vein, Percutaneous Approach (ICD-10-PCS; principal; 2017-08-22)
PROC: 0DBP8ZX Excision of Rectum, Via Natural or Artificial Opening Endoscopic, Diagnostic (ICD-10-PCS; 2017-08-25)
PROC: 3E033GC Introduction of Other Therapeutic Substance into Peripheral Vein, Percutaneous Approach (ICD-10-PCS; 2017-08-25)
PROC: 0DB68ZX Excision of Stomach, Via Natural or Artificial Opening Endoscopic, Diagnostic (ICD-10-PCS; 2017-08-25 10:20)
DX: J44.1 Chronic obstructive pulmonary disease with (acute) exacerbation (principal); J18.9 Pneumonia, unspecified organism; J96.10 Chronic respiratory failure, unspecified whether with hypoxia or hypercapnia; E11.9 Type 2 diabetes mellitus without complications; Z99.81 Dependence on supplemental oxygen; I48.91 Unspecified atrial fibrillation; I47.1 Supraventricular tachycardia; I10 Essential (primary) hypertension; D50.9 Iron deficiency anemia, unspecified; E78.5 Hyperlipidemia, unspecified; K59.00 Constipation, unspecified; Z79.4 Long term (current) use of insulin; Z79.84 Long term (current) use of oral hypoglycemic drugs; K29.70 Gastritis, unspecified, without bleeding; K62.1 Rectal polyp; K64.9 Unspecified hemorrhoids; Z79.02 Long term (current) use of antithrombotics/antiplatelets; Z79.82 Long term (current) use of aspirin; Z95.5 Presence of coronary angioplasty implant and graft; I25.10 Atherosclerotic heart disease of native coronary artery without angina pectoris; M35.3 Polymyalgia rheumatica; E66.9 Obesity, unspecified; Z68.30 Body mass index [BMI] 30.0-30.9, adult
CPT/HCPCS: 36430; 71045; 80053; 82607; 82728; 82747; 82948; 83036; 83540; 83550; 83735; 83880; 84100; 84165; 84439; 84443; 84484; 85007; 85025; 85027; 85044; 86038; 86430; 86850; 86900; 86901; 86920; 88305; 88312; 93005; 93306; 94150; 94640; 94664; 96365; 96366; 96375; J1756; J1815; J1940; J1956; J2920; J2930; J7030; J7050; J7512; P9016